=== PATIENT | male | born 1980 | race Caucasian/White ===

== ENCOUNTER 2023-06-11 22:42 | Inpatient (IN) | payer OTHER, MEDICAID, SELFPAY ==
[2023-06-11 22:44] VITALS: BP 136/62; PULSE 90; RESP 20; TEMP 36.9; O2SAT 93; BMI 47.9
--- NOTE | 2023-06-11 23:27 | PC.NURSE ---
Addendum entered by Mukund Mae CNA 06/12/23 03:44: Patient stood at the bedside with 2 PRODUCTION LAPPING MACHINE OPERATOR assistance, patient used urinal with help, UA collected Addendum entered by uMkund Mae CNA 06/12/23 02:48: Patient called for help, patient stated that he is having DT, seeing and hearing things that are not there. RN notified Addendum entered by Mukund Mae CNA 06/12/23 00:35: Patient stating that he would put a bullet in his mouth if he could. Patient's speech is slurred and hard to understand sometimes. Patient dose keep repeating that his brain is broken and he hasn't slept in days. Addendum entered by Mukund Mae CNA 06/12/23 00:13: patient to CT at 2350 then back to , 1:[address] Original Note: Patient arrived to ER into rm 13, SI, patient changed out of clothes and into green paper scrubs, patient very talkativ, talking with RN , this PRODUCTION LAPPING MACHINE OPERATOR is 1:1 sitter
--- NOTE | 2023-06-11 23:44 | DI.CT.S_ITS ---
PROCEDURE: CT HEAD/BRAIN WO CON INDICATIONS: fall,l head injury, alcohol TECHNIQUE: Noncontrast 4.5 mm thick angled axial sections acquired from the foramen magnum to the vertex, with coronal and sagittal reformats. For radiation dose reduction, the following was used: automated exposure control, adjustment of mA and/or kV according to patient size. COMPARISON: None. FINDINGS: Image quality: Excellent. CSF spaces: Basal cisterns are patent. No extra-axial fluid collections. Ventricles are normal in size and shape. Brain: No intracranial hemorrhage, mass, or mass effect. Rosales-white matter interface appears preserved. Skull and face: Calvarium and visualized facial bones are intact, without suspicious lesions. There is soft tissue swelling in the right parietal scalp with a small subcutaneous hematoma. Sinuses: Visualized sinuses and mastoids are clear. IMPRESSION: 1. No acute intracranial abnormality. 2. Right parietal scalp soft tissue swelling and subcutaneous hematoma without evidence of calvarial fracture. Dictated by: Moises Small M.D. on 06/12/2023 at 0:47 Approved by: Moises Small M.D. on 06/12/2023 at 0:48
[2023-06-12] VITALS (71 sets, daily range): BP systolic 111–184; BP diastolic 55–151; PULSE 73–197; RESP 16–45; TEMP 36.6–37.2; O2SAT 89–98; BMI 48.7
[2023-06-12 00:13] LABS: INR 1.5 (0.9-1.3); Prothrombin Time 16.9 SECONDS (10.1-12.7)
[2023-06-12 00:17] LABS: Basophils Absolute Auto 0 /uL (0-100); Basophils Percent Auto 0.5 % (0-2); Eosinophils Absolute Auto 100 /uL (0-450); Eosinophils Percent Auto 1.8 % (2-4); Hematocrit 40.7 % (41-53); Hemoglobin 14.1 g/dL (13.5-17.5); Lymphocytes Absolute Auto 900 /uL (1100-4500); Lymphocytes Percent Auto 17.3 % (25-40); Mean Corpuscular HGB Conc 34.7 % (30-36); Mean Corpuscular Hemoglobin 34.8 PG (26-34); Mean Corpuscular Volume 100.5 fL (80-100); Monocytes Absolute Auto 400 /uL (0-900); Monocytes Percent Auto 8.1 % (3-14); Neutrophils Absolute Auto 3800 /uL (1500-7000); Neutrophils Percent Auto 72.3 % (50-75); Red Blood Cell Count 4.05 X10^6/uL (4.5-5.9); Red Cell Distribution Width 14.4 % (11.6-14.8); White Blood Cell Count 5.3 X10^3/uL (4.5-11.0)
--- NOTE | 2023-06-12 00:18 | PC.NURSE ---
22:45 this nurse is the primary nurse for this patient. Upon initial assessment, patient is alert, oriented to self, date, place and situation. When asked about patient wanting to harm himself, patient states I made my peace with life, and just want it to end, I just wanted my heart to stop. I tried drinking but that did not work. At 23:16, patient states just let me . 23:44 this nurse spoke with patient's father, Escobar, who reports the patient sent him a text message saying he wants to ends things, and now id the time for him to be a father. The patient's father came up from [place] to see him. The father reports the patient had a fall on Saturday, and hit his head, that was witnessed by [facility] staff where patient resides. The father also all day everyday he (the patient) keeps saying I want it to end, just let me . Per patient's father report, the patient fell out of bed and hit the right side of his head today. Dr. Mckeon aware.
[2023-06-12 00:23] LABS: Add Manual Diff / Slide Review SLIDE REVIEW; Alanine Aminotransferase 164 IU/L (<50); Albumin 3.8 g/dL (3.5-5.0); Albumin Globulin Ratio 0.9 (1.0-2.8); Alkaline Phosphatase 165 U/L (38-126); Aspartate Aminotransferase 431 IU/L (17-59); BUN Creatinine Ratio 11.1 (6-22); Bilirubin Total 4.8 mg/dL (0.2-1.3); Blood Urea Nitrogen 6 mg/dL (9-20); Calcium 7.9 mg/dL (8.4-10.2); Carbon Dioxide 28 mmol/L (22-32); Chloride 89 mmol/L (98-107); Estimated Glomerular Filt Rate > 60 mL/min (>60); Globulin 4.4 g/dL (1.7-4.1); Glucose 126 mg/dL (70-100); HEMOLYSIS 21 (0-50); Lipase 554 U/L (23-300); Magnesium 1.9 mg/dL (1.6-2.3); Potassium 3.7 mmol/L (3.4-5.1); Sodium 132 mmol/L (137-145); Total Protein 8.2 g/dL (6.3-8.2)
[2023-06-12 00:48] LABS: Acetaminophen < 10 ug/mL (10-30); Salicylate < 1.0 mg/dL (<20)
[2023-06-12 00:58] LABS: Ethanol (ETOH) 410 mg/dL
[2023-06-12 00:59] LABS: Platelet Count 36 X10^3/uL (150-400)
[2023-06-12 01:03] LABS: Anisocytosis 2+; Macrocytosis 1+; Platelet Estimate Decreased on smear
--- NOTE | 2023-06-12 03:48 | ED_ITS ---
HPI - Alcohol <DO Poli Jung Last Filed: 06/13/23 04:06> General Chief Complaint: Toxicology Problem Stated Complaint: ETOH w/ SI Time Seen by Provider: 06/11/23 22:51 Source: EMS Mode of arrival: EMS History of Present Illness HPI narrative: 43-year-old male without significant chronic medical history admits to drinking a large amount of liquor daily and presents by EMS for evaluation of apparent alcohol intoxication. He reports drinking upwards of a 5th of bourbon daily but had recently made attempts to cut back. His father is visiting from out of town and was trying to help him with the process but (per EMS) it sounds like he is attempting to swap bourbon with vodka and has been supplying him with liquor. He states that he had a large amount of vodka earlier today and ?passed out? on the stairs and woke up to EMS. He did strike the right side of his head but has had no vomiting. Denies other injury. He is never tried quitting alcohol through a detox or rehab facility before Related Data Home Medications Medication Instructions Recorded Confirmed No Known Home Medications 06/12/23 06/12/23 Allergies Allergy/AdvReac Type Severity Reaction Status Date / Time No Known Drug Allergies Allergy Verified 06/11/23 23:15 Review of Systems <DO Poli Jung Last Filed: 06/13/23 04:06> Review of Systems Narrative: GENERAL: Denies chills, fatigue, malaise, fever, sweats. HEENT: Denies sinus pain, ear pain, sore throat, difficulty swallowing, dizziness. RESPIRATORY: Denies dyspnea, cough, wheezing, hemoptysis, sputum. CARDIOVASCULAR: Denies chest pain, palpitations, orthopnea, edema, GASTROINTESTINAL: Denies nausea, vomiting, abdominal pain, diarrhea, const ipation, melena. : Denies dysuria, frequency, incontinence, hematuria, urinary retention. MUSCULOSKELETAL: denies weakness, joint pain, or bony pain SKIN: Denies rash, skin lesions, or other NEUROLOGIC: Denies weakness, headache, numbness, change in speech, confusion, seizures, incoordination. PSYCHIATRIC: No concerning psychosocial issues. 12 point review of systems is negative except for those stated above Patient History <DO Poli Jung Last Filed: 06/13/23 04:06> Social History household members: none Smoking Status: Unknown if ever smoked alcohol intake: current Alcohol type: hard liquor Exam <Rainer Mckeon DO - Last Filed: 06/13/23 04:06> Narrative Exam Narrative: GENERAL: [43] year old patient appears stated age. Slurring words, tearful, poor historian, GCS 14 (confused) HEAD: Right parietal swelling and tenderness, no laceration, no evidence of depressed skull fracture EYES: Pupils equal round and reactive. No hyphema Extraocular motions intact. No scleral icterus. No injection or drainage. ENT: Nose without bleeding, purulent drainage. Dried blood in his mouth, no septal hematoma or hemotympanum Throat without erythema, tonsillar hypertrophy or exudate. Airway patent. NECK: Trachea midline. Non tender CARDIOVASCULAR: Regular rate and rhythm without murmurs, gallops, or rubs. RESPIRATORY: Clear to auscultation. Breath sounds equal bilaterally. No wheezes, rales, or rhonchi. GASTROINTESTINAL: Abdomen soft, non-tender, nondistended. EXTREMITIES: No edema or joint tenderness. BACK: Nontender without deformity or crepitance. No flank tenderness. NEURO: AOx3. SKIN: No rash or erythema of visible areas Initial Vital Signs Initial Vital Signs: Vital Signs Temperature 98.4 F 06/11/23 22:44 Pulse Rate 90 06/11/23 22:44 Respiratory Rate 20 06/11/23 22:44 Blood Pressure 136/62 06/11/23 22:44 Pulse Oximetry 93 06/11/23 22:44 Oxygen Delivery Method Room Air 06/11/23 22:44 <Jason Dejesus MD - Last Filed: 06/20/23 09:15> Initial Vital Signs Initial Vital Signs: Vital Signs Temperature 98.4 F 06/11/23 22:44 Pulse Rate 90 06/11/23 22:44 Respiratory Rate 06/11/23 22:44 Blood Pressure 136/62 06/11/23 22:44 Pulse Oximetry 93 06/11/23 22:44 Oxygen Delivery Method Room Air 06/11/23 22:44 Course <Rainer Mckeon DO - Last Filed: 06/13/23 04:06> Orders Ordered: Acetaminophen (Acetaminophen 325 Mg Tablet) 650 mg PO Q6H PRN PRN Reason: Fever/Mild Pain (1-3) Folic Acid (Folic Acid 1 Mg Tablet) 1 mg PO DAILY [facility] Last Admin: 06/20/23 08:24 Dose: 1 mg Documented By: Admin: 06/19/23 08:40 Dose: 1 mg Documented By: Admin: 06/18/23 09:30 Dose: 1 mg Documented By: Admin: 06/17/23 08:49 Dose: 1 mg Documented By: Admin: 06/16/23 08:23 Dose: 1 mg Documented By: Admin: 06/15/23 08:37 Dose: 1 mg Documented By: Admin: 06/14/23 08:45 Dose: 1 mg Documented By: Admin: 06/13/23 08:21 Dose: 1 mg Documented By: EMEKA Heparin Sodium (Porcine) (Heparin Flush (Cl/Picc/Mid-Line) 50 Unit/5 Ml Syringe) 50 unit IV PRN PRN PRN Reason: Flush Last Admin: 06/19/23 13:51 Dose: 50 unit Documented By: Admin: 06/18/23 14:37 Dose: 50 unit Documented By: CHAD Lactulose (Lactulose 20 Gm/30 Ml Solution) 30 gm PO TID [facility] Last Admin: 06/20/23 08:24 Dose: 30 gm Documented By: Admin: 06/19/23 20:55 Dose: 30 gm Documented By: Admin: 06/19/23 14:16 Dose: 30 gm Documented By: Admin: 06/19/23 08:40 Dose: 30 gm Documented By: Admin: 06/18/23 21:17 Dose: 30 gm Documented By: Admin: 06/18/23 14:37 Dose: 30 gm Documented By: CHAD Lorazepam (Lorazepam 2 Mg/Ml Inj) 0 mg IV CIWAPRN PRN; Protocol PRN Reason: Alcohol Withdrawal Last Admin: 06/12/23 23:42 Dose: 1 mg Documented By: Admin: 06/12/23 14:02 Dose: 2 mg Documented By: Admin: 06/12/23 10:52 Dose: 2 mg Documented By: AMV Melatonin (Melatonin 3 Mg Tablet) 9 mg PO BEDTIME [facility] Last Admin: 06/19/23 20:52 Dose: 9 mg Documented By: Admin: 06/18/23 21:17 Dose: 9 mg Documented By: Admin: 06/17/23 21:17 Dose: 9 mg Documented By: Multivitamins (Multivitamin 1 Tablet) 1 tab PO DAILY [facility] Last Admin: 06/20/23 08:24 Dose: 1 tab Documented By: Admin: 06/19/23 08:40 Dose: 1 tab Documented By: Admin: 06/18/23 09:30 Dose: 1 tab Documented By: Admin: 06/17/23 08:49 Dose: 1 tab Documented By: Admin: 06/16/23 08:23 Dose: 1 tab Documented By: Admin: 06/15/23 08:37 Dose: 1 tab Documented By: Admin: 06/14/23 08:45 Dose: 1 tab Documented By: Admin: 06/13/23 08:21 Dose: 1 tab Documented By: EMEKA Naloxone HCl (Naloxone 0.4 Mg/Ml Vial) 0.2 mg IV Q2MIN PRN PRN Reason: Opiate Reversal Nystatin (Nystatin Powder 15gm) 1 applic TOP BID [facility] Last Admin: 06/20/23 08:25 Dose: 1 applic Documented By: Admin: 06/19/23 20:53 Dose: 1 applic Documented By: Admin: 06/19/23 08:41 Dose: 1 applic Documented By: Admin: 06/18/23 21:21 Dose: 1 applic Documented By: Admin: 06/18/23 09:30 Dose: 1 applic Documented By: Admin: 06/17/23 21:16 Dose: 1 applic Documented By: Admin: 06/17/23 08:49 Dose: 1 applic Documented By: Admin: 06/16/23 21:50 Dose: 1 applic Documented By: Admin: 06/16/23 08:24 Dose: 1 applic Documented By: Admin: 06/15/23 20:45 Dose: 1 applic Documented By: Admin: 06/15/23 08:38 Dose: 1 applic Documented By: Admin: 06/14/23 14:31 Dose: 1 applic Documented By: Admin: 06/14/23 09:06 Dose: Not Given Documented By: Admin: 06/13/23 20:15 Dose: 1 applic Documented By: Admin: 06/13/23 13:58 Dose: 1 applic Documented By: EMEKA Ondansetron HCl (Ondansetron 4 Mg/2 Ml Inj) 4 mg IV Q6HR PRN PRN Reason: Nausea And Vomiting Last Admin: 06/12/23 10:31 Dose: 4 mg Documented By: DAVON Pantoprazole Sodium (Pantoprazole Dr 40 Mg Tablet) 40 mg PO 0600 [facility] Last Admin: 06/20/23 06:02 Dose: 40 mg Documented By: (2) Admin: 06/19/23 05:44 Dose: 40 mg Documented By: Admin: 06/18/23 05:09 Dose: 40 mg Documented By: Admin: 06/17/23 05:08 Dose: 40 mg Documented By: Admin: 06/16/23 06:38 Dose: 40 mg Documented By: Admin: 06/15/23 06:49 Dose: 40 mg Documented By: RAQUEL Prednisolone (Prednisolone Syrup 15 Mg/5 Ml) 40 mg PO DAILY [facility] Stop: 07/15/23 08:59 Last Admin: 06/20/23 08:24 Dose: 40 mg Documented By: Admin: 06/19/23 08:40 Dose: 40 mg Documented By: Admin: 06/18/23 09:31 Dose: 40 mg Documented By: Admin: 06/17/23 08:54 Dose: 40 mg Documented By: KRYSTA Quetiapine Fumarate (Quetiapine 100 Mg Tablet) 25 mg PO BID PRN PRN Reason: Agitation Last Admin: 06/18/23 21:17 Dose: 25 mg Documented By: Admin: 06/17/23 21:17 Dose: 25 mg Documented By: Thiamine HCl (Thiamine 100 Mg Tablet) 100 mg PO DAILY [facility] Last Admin: 06/20/23 08:24 Dose: 100 mg Documented By: Admin: 06/19/23 08:40 Dose: 100 mg Documented By: Admin: 06/18/23 09:30 Dose: 100 mg Documented By: Admin: 06/17/23 08:49 Dose: 100 mg Documented By: Admin: 06/16/23 08:23 Dose: 100 mg Documented By: Discontinued Medications Cephalexin HCl (Cephalexin 250 Mg Capsule) 500 mg PO NOW ONE Stop: 06/12/23 07:06 Last Admin: 06/12/23 10:31 Dose: 500 mg Documented By: DAVON Chlordiazepoxide HCl (Chlordiazepoxide 25 Mg Capsule) 50 mg PO Q6HRWA [facility] Chlordiazepoxide HCl (Chlordiazepoxide 25 Mg Capsule) 50 mg PO Q6HRWA [facility] Last Admin: 06/13/23 08:13 Dose: 50 mg Documented By: Admin: 06/12/23 20:51 Dose: 50 mg Documented By: Admin: 06/12/23 18:08 Dose: 50 mg Documented By: MEME Chlordiazepoxide HCl (Chlordiazepoxide 25 Mg Capsule) 50 mg PO Q6HR [facility] Chlordiazepoxide HCl (Chlordiazepoxide 25 Mg Capsule) 75 mg PO Q6HR [facility] Last Admin: 06/13/23 11:44 Dose: 75 mg Documented By: EMEKA Chlordiazepoxide HCl (Chlordiazepoxide 25 Mg Capsule) 50 mg PO Q6HR [facility] Last Admin: 06/14/23 06:21 Dose: 50 mg Documented By: Admin: 06/14/23 00:08 Dose: 50 mg Documented By: Admin: 06/13/23 17:26 Dose: 50 mg Documented By: EMEKA Chlordiazepoxide HCl (Chlordiazepoxide 25 Mg Capsule) 50 mg PO Q8HR [facility] Last Admin: 06/15/23 06:49 Dose: 50 mg Documented By: Admin: 06/14/23 21:00 Dose: 50 mg Documented By: Admin: 06/14/23 14:28 Dose: 50 mg Documented By: Diltiazem HCl (Diltiazem 5 Mg/Ml [facility]) 10 mg IV NOW ONE Stop: 06/12/23 10:46 Last Admin: 06/12/23 10:53 Dose: 10 mg Documented By: DAVON Thiamine HCl 200 mg/ Sodium (Chloride) 102 mls @ 408 mls/hr IV NOW ONE Stop: 06/12/23 03:54 Last Infusion: 06/12/23 04:27 Dose: 0 mls/hr Documented By: Admin: 06/12/23 04:08 Dose: 408 mls/hr Documented By: GALINDO Sodium Chloride (Normal Saline 0.9%) 1,000 mls @ 1,000 mls/hr IV BOLUS ONE Stop: 06/12/23 11:14 Last Infusion: 06/12/23 13:22 Dose: 0 mls/hr Documented By: Admin: 06/12/23 10:31 Dose: 1,000 mls/hr Documented By: AMAdri DILTIAZEM (Diltiazem 125 Mg/125 Ml-D5w) 125 mg in 125 mls @ 5 mls/hr IV TITRATE [facility]; Protocol Last Titration: 06/12/23 12:30 Dose: 0 mg/hr, 0 mls/hr Documented By: Titration: 06/12/23 12:04 Dose: 15 mg/hr, 15 mls/hr Documented By: Titration: 06/12/23 11:43 Dose: 10 mg/hr, 10 mls/hr Documented By: Admin: 06/12/23 11:39 Dose: 5 mg/hr, 5 mls/hr Documented By: RLS Heparin Sodium/Dextrose (Heparin Drip) 25,000 unit in 500 mls @ 37.44 mls/hr IV CONT [facility]; Protocol Last Titration: 06/12/23 13:15 Dose: 0 units/kg/hr, 0 mls/hr Documented By: KAMLESH Co-signed By: AMAdri Admin: 06/12/23 13:02 Dose: 12 units/kg/hr, 37.44 mls/hr Documented By: RLS Co-signed By: MAI Magnesium Sulfate (Magnesium Sulfate) 2 gm in 50 mls @ 25 mls/hr IV NOW ONE Stop: 06/12/23 14:29 Last Infusion: 06/12/23 16:23 Dose: 0 mls/hr Documented By: MEME Co-signed By: WILLY Admin: 06/12/23 12:38 Dose: 25 mls/hr Documented By: KAMLESH Co-signed By: HOLLY Esmolol HCl (Brevibloc) 2.5 gm in 250 mls @ 46.8 mls/hr IV TITRATE [facility]; Protocol Last Titration: 06/12/23 21:15 Dose: 0 mcg/kg/min, 0 mls/hr Documented By: Admin: 06/12/23 19:46 Dose: 150 mcg/kg/min, 140.4 mls/hr Documented By: Titration: 06/12/23 19:46 Dose: 150 mcg/kg/min, 140.4 mls/hr Documented By: Admin: 06/12/23 19:36 Dose: 150 mcg/kg/min, 140.4 mls/hr Documented By: Titration: 06/12/23 19:36 Dose: 150 mcg/kg/min, 140.4 mls/hr Documented By: Titration: 06/12/23 18:38 Dose: 150 mcg/kg/min, 140.4 mls/hr Documented By: Admin: 06/12/23 17:25 Dose: 100 mcg/kg/min, 93.6 mls/hr Documented By: Titration: 06/12/23 17:25 Dose: 100 mcg/kg/min, 93.6 mls/hr Documented By: Titration: 06/12/23 16:17 Dose: 100 mcg/kg/min, 93.6 mls/hr Documented By: Admin: 06/12/23 13:13 Dose: 50 mcg/kg/min, 46.8 mls/hr Documented By: RLS Sodium Chloride (Normal Saline 0.9%) 1,000 mls @ 150 mls/hr IV BOLUS ONE Stop: 06/12/23 20:14 Last Infusion: 06/12/23 17:27 Dose: 0 mls/hr Documented By: Infusion: 06/12/23 17:25 Dose: 0 mls/hr Documented By: Admin: 06/12/23 13:48 Dose: 100 mls/hr Documented By: RLS dexmedeTOMIDine in 0.9 % NaCL (Precedex) 400 mcg in 100 mls @ 7.8 mls/hr IV TITRATE [facility]; Protocol Last Titration: 06/14/23 09:44 Dose: 0 mcg/kg/hr, 0 mls/hr Documented By: Titration: 06/14/23 09:08 Dose: 0.3 mcg/kg/hr, 11.7 mls/hr Documented By: Admin: 06/14/23 04:13 Dose: 0.4 mcg/kg/hr, 15.6 mls/hr Documented By: Titration: 06/14/23 04:13 Dose: 0.4 mcg/kg/hr, 15.6 mls/hr Documented By: Titration: 06/14/23 03:41 Dose: 0.4 mcg/kg/hr, 15.6 mls/hr Documented By: Admin: 06/13/23 16:45 Dose: 0.2 mcg/kg/hr, 7.8 mls/hr Documented By: Titration: 06/13/23 16:45 Dose: 0.2 mcg/kg/hr, 7.8 mls/hr Documented By: Titration: 06/13/23 12:55 Dose: 0.2 mcg/kg/hr, 7.8 mls/hr Documented By: Titration: 06/13/23 10:44 Dose: 0.4 mcg/kg/hr, 15.6 mls/hr Documented By: Admin: 06/13/23 10:13 Dose: 0.2 mcg/kg/hr, 7.8 mls/hr Documented By: Admin: 06/12/23 16:18 Dose: Not Given Documented By: MEME Lactated Ringer's (Lactated Ringers) 1,000 mls @ 1,000 mls/hr IV BOLUS ONE Stop: 06/12/23 15:52 Last Infusion: 06/12/23 16:23 Dose: 0 mls/hr Documented By: Admin: 06/12/23 16:05 Dose: 1,000 mls/hr Documented By: MEME POTASSIUM CHLORIDE IN WATER (Potassium Cl 10 Meq/100 Ml [place]) 10 meq in 100 mls @ 100 mls/hr IV Q1H [facility] Stop: 06/12/23 18:59 Last Admin: 06/12/23 19:35 Dose: 100 mls/hr Documented By: Infusion: 06/12/23 19:26 Dose: 0 mls/hr Documented By: Admin: 06/12/23 18:21 Dose: 100 mls/hr Documented By: Infusion: 06/12/23 18:21 Dose: 100 mls/hr Documented By: Admin: 06/12/23 17:26 Dose: 100 mls/hr Documented By: Infusion: 06/12/23 17:05 Dose: 100 mls/hr Documented By: Admin: 06/12/23 16:05 Dose: 100 mls/hr Documented By: MEME Lactated Ringer's (Lactated Ringers) 1,000 mls @ 100 mls/hr IV CONT [facility] Last Infusion: 06/14/23 12:08 Dose: 0 mls/hr Documented By: Admin: 06/14/23 10:08 Dose: 100 mls/hr Documented By: Infusion: 06/14/23 10:08 Dose: 100 mls/hr Documented By: Admin: 06/14/23 00:16 Dose: 100 mls/hr Documented By: Infusion: 06/14/23 00:04 Dose: 100 mls/hr Documented By: Admin: 06/13/23 14:04 Dose: 100 mls/hr Documented By: Infusion: 06/13/23 14:04 Dose: 100 mls/hr Documented By: Admin: 06/13/23 13:59 Dose: 100 mls/hr Documented By: Infusion: 06/13/23 13:59 Dose: 100 mls/hr Documented By: Admin: 06/13/23 04:15 Dose: 100 mls/hr Documented By: Infusion: 06/13/23 03:25 Dose: 100 mls/hr Documented By: Admin: 06/12/23 17:25 Dose: 100 mls/hr Documented By: MEME Lactated Ringer's (Lactated Ringers) 1,000 mls @ 1,000 mls/hr IV BOLUS ONE Stop: 06/12/23 19:12 Last Infusion: 06/12/23 19:16 Dose: 0 mls/hr Documented By: Admin: 06/12/23 18:19 Dose: 1,000 mls/hr Documented By: MEME Lactated Ringer's (Lactated Ringers) 1,000 mls @ 1,000 mls/hr IV BOLUS ONE Stop: 06/12/23 21:39 Last Infusion: 06/12/23 21:54 Dose: 0 mls/hr Documented By: Admin: 06/12/23 20:45 Dose: 1,000 mls/hr Documented By: SEVERO Thiamine HCl 500 mg/ Sodium (Chloride) 105 mls @ 420 mls/hr IV TID [facility] Last Admin: 06/15/23 08:37 Dose: 420 mls/hr Documented By: Infusion: 06/14/23 21:25 Dose: 0 mls/hr Documented By: Admin: 06/14/23 20:59 Dose: 420 mls/hr Documented By: Infusion: 06/14/23 14:43 Dose: 0 mls/hr Documented By: Admin: 06/14/23 14:28 Dose: 420 mls/hr Documented By: Infusion: 06/14/23 09:00 Dose: 0 mls/hr Documented By: Admin: 06/14/23 08:45 Dose: 420 mls/hr Documented By: Infusion: 06/13/23 20:31 Dose: 0 mls/hr Documented By: Admin: 06/13/23 20:16 Dose: 420 mls/hr Documented By: Infusion: 06/13/23 15:09 Dose: 0 mls/hr Documented By: Admin: 06/13/23 14:45 Dose: 420 mls/hr Documented By: Infusion: 06/13/23 11:10 Dose: 0 mls/hr Documented By: Admin: 06/13/23 09:34 Dose: 420 mls/hr Documented By: EMEKA Lactulose (Lactulose 20 Gm/30 Ml Solution) 20 gm PO TID [facility] Last Admin: 06/18/23 09:30 Dose: 20 gm Documented By: Admin: 06/17/23 21:16 Dose: 20 gm Documented By: Admin: 06/17/23 16:30 Dose: 20 gm Documented By: Admin: 06/17/23 08:49 Dose: 20 gm Documented By: Admin: 06/16/23 21:48 Dose: 20 gm Documented By: Admin: 06/16/23 14:45 Dose: 20 gm Documented By: Admin: 06/16/23 09:54 Dose: 20 gm Documented By: Lorazepam (Lorazepam 2 Mg/Ml Inj) 2 mg IV NOW ONE Stop: 06/13/23 09:05 Last Admin: 06/13/23 09:34 Dose: 2 mg Documented By: EMEKA Magnesium Chloride (Magnesium Chloride 64 Mg Tablet) 128 mg PO NOW ONE Stop: 06/13/23 10:31 Last Admin: 06/13/23 10:42 Dose: 128 mg Documented By: EMEKA Methylprednisolone (Methylprednisolone 40 Mg/Ml Vial) 32 mg IV DAILY [facility] Last Admin: 06/13/23 08:20 Dose: 32 mg Documented By: EMEKA Metoprolol Tartrate (Metoprolol Tartrate 5 Mg/5 Ml Inj) 5 mg IV NOW ONE Stop: 06/12/23 12:28 Last Admin: 06/12/23 12:46 Dose: 5 mg Documented By: KAMLESH Pantoprazole Sodium (Pantoprazole 40 Mg Vial) 40 mg IV 0700 [facility] Last Admin: 06/14/23 06:21 Dose: 40 mg Documented By: Admin: 06/13/23 07:38 Dose: 40 mg Documented By: EMEKA Potassium Chloride (Potassium Chloride 20 Meq Tab) 40 meq PO NOW ONE Stop: 06/13/23 10:31 Last Admin: 06/13/23 10:42 Dose: 40 meq Documented By: CW Potassium Chloride (Potassium Chloride 20 Meq Tab) 40 meq PO Q6H [facility] Stop: 06/14/23 14:01 Last Admin: 06/14/23 14:30 Dose: 40 meq Documented By: Admin: 06/14/23 08:45 Dose: 40 meq Documented By: MS Potassium Chloride (Potassium Chloride 20 Meq Tab) 20 meq PO Q2H [facility] Stop: 06/15/23 12:01 Last Admin: 06/15/23 12:32 Dose: 20 meq Documented By: Admin: 06/15/23 10:45 Dose: 20 meq Documented By: Admin: 06/15/23 08:37 Dose: 20 meq Documented By: MS Potassium Chloride (Potassium Chloride 20 Meq Tab) 40 meq PO NOW ONE Stop: 06/16/23 07:23 Last Admin: 06/16/23 08:23 Dose: 40 meq Documented By: MS Potassium Chloride (Potassium Chloride 20 Meq Tab) 20 meq PO Q2H [facility] Stop: 06/16/23 14:31 Last Admin: 06/16/23 12:01 Dose: Not Given Documented By: MS Thiamine HCl (Thiamine 100 Mg Tablet) 100 mg PO DAILY [facility] Stop: 06/16/23 09:01 Last Admin: 06/13/23 08:20 Dose: 100 mg Documented By: EMEKA Reevaluation(s) Reevaluation #1: Patient continuing to improve, speaking clearly, no suicidal or homicidal ideation. No signs of withdrawal at this time Vital Signs Vital signs: Vital Signs - 8 hr 06/12/23 06:55 06/12/23 10:16 06/12/23 10:42 Temperature 98.1 F 97.8 F Pulse Rate 78 156 H 165 H Respiratory Rate 20 18 20 Blood Pressure 133/62 Blood Pressure [Right Arm] 184/77 H Pulse Oximetry 98 96 Oxygen Delivery Method Room Air Room Air 06/12/23 10:44 06/12/23 10:44 06/12/23 10:45 Temperature Pulse Rate 175 H 172 H Respiratory Rate 17 22 Blood Pressure 157/89 H Blood Pressure [Right Arm] Pulse Oximetry 94 95 Oxygen Delivery Method 06/12/23 10:50 06/12/23 10:55 06/12/23 11:00 Temperature Pulse Rate 175 H 158 H Respiratory Rate 23 18 Blood Pressure 176/127 H Blood Pressure [Right Arm] Pulse Oximetry 95 94 Oxygen Delivery Method Room Air 06/12/23 11:00 06/12/23 11:05 06/12/23 11:10 Temperature Pulse Rate 164 H 176 H 174 H Respiratory Rate 16 27 H 26 H Blood Pressure Blood Pressure [Right Arm] Pulse Oximetry 92 91 93 Oxygen Delivery Method 06/12/23 11:15 06/12/23 11:20 06/12/23 11:25 Temperature Pulse Rate 170 H 175 H Respiratory Rate 21 33 H Blood Pressure 179/146 H Blood Pressure [Right Arm] Pulse Oximetry 91 92 Oxygen Delivery Method 06/12/23 11:25 06/12/23 11:30 06/12/23 11:30 Temperature Pulse Rate 197 H 171 H Respiratory Rate 45 H 32 H Blood Pressure 184/151 H Blood Pressure [Right Arm] Pulse Oximetry 93 94 Oxygen Delivery Method 06/12/23 11:35 06/12/23 11:37 06/12/23 11:37 Temperature Pulse Rate 177 H 175 H Respiratory Rate 33 H 28 H Blood Pressure 128/75 Blood Pressure [Right Arm] Pulse Oximetry 95 Oxygen Delivery Method 06/12/23 11:40 06/12/23 11:45 06/12/23 11:48 Temperature Pulse Rate 172 H 172 H Respiratory Rate 21 22 Blood Pressure 124/72 Blood Pressure [Right Arm] Pulse Oximetry 95 95 Oxygen Delivery Method 06/12/23 11:48 06/12/23 11:50 06/12/23 11:50 Temperature Pulse Rate 175 H 170 H Respiratory Rate 22 17 Blood Pressure 122/79 Blood Pressure [Right Arm] Pulse Oximetry 94 94 Oxygen Delivery Method 06/12/23 11:55 06/12/23 11:55 06/12/23 12:00 Temperature Pulse Rate 171 H Respiratory Rate 24 Blood Pressure 127/70 143/77 H Blood Pressure [Right Arm] Pulse Oximetry 93 Oxygen Delivery Method 06/12/23 12:00 06/12/23 12:05 06/12/23 12:05 Temperature Pulse Rate 176 H 181 H Respiratory Rate 25 H 20 Blood Pressure 138/73 Blood Pressure [Right Arm] Pulse Oximetry 94 96 Oxygen Delivery Method 06/12/23 12:10 06/12/23 12:15 06/12/23 12:18 Temperature Pulse Rate 178 H 177 H 172 H Respiratory Rate 20 30 H 31 H Blood Pressure Blood Pressure [Right Arm] Pulse Oximetry 95 95 94 Oxygen Delivery Method 06/12/23 12:18 06/12/23 12:20 06/12/23 12:20 Temperature Pulse Rate 174 H Respiratory Rate 22 Blood Pressure 145/93 H 137/82 Blood Pressure [Right Arm] Pulse Oximetry 96 Oxygen Delivery Method 06/12/23 12:25 06/12/23 12:25 06/12/23 12:30 Temperature Pulse Rate 170 H Respiratory Rate 27 H Blood Pressure 157/99 H 148/77 H Blood Pressure [Right Arm] Pulse Oximetry 93 Oxygen Delivery Method 06/12/23 12:30 06/12/23 12:35 06/12/23 12:35 Temperature Pulse Rate 163 H 166 H Respiratory Rate 28 H 28 H Blood Pressure 174/74 H Blood Pressure [Right Arm] Pulse Oximetry 92 92 Oxygen Delivery Method 06/12/23 12:40 06/12/23 12:40 06/12/23 12:45 Temperature Pulse Rate 164 H Respiratory Rate 28 H Blood Pressure 162/77 H 149/88 H Blood Pressure [Right Arm] Pulse Oximetry 94 Oxygen Delivery Method 06/12/23 12:45 06/12/23 12:50 06/12/23 12:50 Temperature Pulse Rate 164 H 142 H Respiratory Rate 28 H 20 Blood Pressure 154/109 H Blood Pressure [Right Arm] Pulse Oximetry 93 95 Oxygen Delivery Method 06/12/23 12:55 06/12/23 12:55 06/12/23 13:00 Temperature Pulse Rate 119 H Respiratory Rate 33 H Blood Pressure 161/86 H 147/70 H Blood Pressure [Right Arm] Pulse Oximetry 92 Oxygen Delivery Method 06/12/23 13:00 06/12/23 13:05 06/12/23 13:05 Temperature Pulse Rate 127 H 129 H Respiratory Rate 34 H 27 H Blood Pressure 140/80 Blood Pressure [Right Arm] Pulse Oximetry 93 94 Oxygen Delivery Method 06/12/23 13:10 06/12/23 13:10 06/12/23 13:15 Temperature Pulse Rate 138 H Respiratory Rate 32 H Blood Pressure 143/78 H 152/75 H Blood Pressure [Right Arm] Pulse Oximetry 92 Oxygen Delivery Method 06/12/23 13:15 06/12/23 13:20 06/12/23 13:20 Temperature Pulse Rate 135 H 126 H Respiratory Rate 34 H 33 H Blood Pressure 152/80 H Blood Pressure [Right Arm] Pulse Oximetry 92 91 Oxygen Delivery Method 06/12/23 13:25 06/12/23 13:25 06/12/23 13:30 Temperature Pulse Rate 121 H Respiratory Rate 31 H Blood Pressure 149/100 H 119/75 Blood Pressure [Right Arm] Pulse Oximetry 93 Oxygen Delivery Method 06/12/23 13:30 06/12/23 13:35 06/12/23 13:35 Temperature 98.8 F Pulse Rate 125 H 122 H Respiratory Rate 30 H 32 H Blood Pressure 138/78 Blood Pressure [Right Arm] Pulse Oximetry 94 91 Oxygen Delivery Method Room Air 06/12/23 13:40 06/12/23 13:40 06/12/23 13:45 Temperature Pulse Rate 116 H Respiratory Rate 30 H Blood Pressure 144/86 H 144/86 H Blood Pressure [Right Arm] Pulse Oximetry 93 Oxygen Delivery Method 06/12/23 13:45 Temperature Pulse Rate 124 H Respiratory Rate 31 H Blood Pressure Blood Pressure [Right Arm] Pulse Oximetry 94 Oxygen Delivery Method <Jason Dejesus MD - Last Filed: 06/20/23 09:15> Orders Ordered: Acetaminophen (Acetaminophen 325 Mg Tablet) 650 mg PO Q6H PRN PRN Reason: Fever/Mild Pain (1-3) Folic Acid (Folic Acid 1 Mg Tablet) 1 mg PO DAILY [facility] Admin: 06/20/23 08:24 Dose: 1 mg Documented By: Admin: 06/19/23 08:40 Dose: 1 mg Documented By: Admin: 06/18/23 09:30 Dose: 1 mg Documented By: Admin: 06/17/23 08:49 Dose: 1 mg Documented By: Admin: 06/16/23 08:23 Dose: 1 mg Documented By: Admin: 06/15/23 08:37 Dose: 1 mg Documented By: Admin: 06/14/23 08:45 Dose: 1 mg Documented By: Admin: 06/13/23 08:21 Dose: 1 mg Documented By: CW Heparin Sodium (Porcine) (Heparin Flush (Cl/Picc/Mid-Line) 50 Unit/5 Ml Syringe) 50 unit IV PRN PRN PRN Reason: Flush Last Admin: 06/19/23 13:51 Dose: 50 unit Documented By: Admin: 06/18/23 14:37 Dose: 50 unit Documented By: CHAD Lactulose (Lactulose 20 Gm/30 Ml Solution) 30 gm PO TID [facility] Last Admin: 06/20/23 08:24 Dose: 30 gm Documented By: Admin: 06/19/23 20:55 Dose: 30 gm Documented By: Admin: 06/19/23 14:16 Dose: 30 gm Documented By: Admin: 06/19/23 08:40 Dose: 30 gm Documented By: Admin: 06/18/23 21:17 Dose: 30 gm Documented By: Admin: 06/18/23 14:37 Dose: 30 gm Documented By: CHAD Lorazepam (Lorazepam 2 Mg/Ml Inj) 0 mg IV CIWAPRN PRN; Protocol PRN Reason: Alcohol Withdrawal Last Admin: 06/12/23 23:42 Dose: 1 mg Documented By: Admin: 06/12/23 14:02 Dose: 2 mg Documented By: Admin: 06/12/23 10:52 Dose: 2 mg Documented By: DAVON Melatonin (Melatonin 3 Mg Tablet) 9 mg PO BEDTIME [facility] Last Admin: 06/19/23 20:52 Dose: 9 mg Documented By: Admin: 06/18/23 21:17 Dose: 9 mg Documented By: Admin: 06/17/23 21:17 Dose: 9 mg Documented By: Multivitamins (Multivitamin 1 Tablet) 1 tab PO DAILY [facility] Last Admin: 06/20/23 08:24 Dose: 1 tab Documented By: Admin: 06/19/23 08:40 Dose: 1 tab Documented By: Admin: 06/18/23 09:30 Dose: 1 tab Documented By: Admin: 06/17/23 08:49 Dose: 1 tab Documented By: Admin: 06/16/23 08:23 Dose: 1 tab Documented By: Admin: 06/15/23 08:37 Dose: 1 tab Documented By: Admin: 06/14/23 08:45 Dose: 1 tab Documented By: Admin: 06/13/23 08:21 Dose: 1 tab Documented By: EMEKA Naloxone HCl (Naloxone 0.4 Mg/Ml Vial) 0.2 mg IV Q2MIN PRN PRN Reason: Opiate Reversal Nystatin (Nystatin Powder 15gm) 1 applic TOP BID [facility] Last Admin: 06/20/23 08:25 Dose: 1 applic Documented By: Admin: 06/19/23 20:53 Dose: 1 applic Documented By: Admin: 06/19/23 08:41 Dose: 1 applic Documented By: Admin: 06/18/23 21:21 Dose: 1 applic Documented By: Admin: 06/18/23 09:30 Dose: 1 applic Documented By: Admin: 06/17/23 21:16 Dose: 1 applic Documented By: Admin: 06/17/23 08:49 Dose: 1 applic Documented By: Admin: 06/16/23 21:50 Dose: 1 applic Documented By: Admin: 06/16/23 08:24 Dose: 1 applic Documented By: Admin: 06/15/23 20:45 Dose: 1 applic Documented By: Admin: 06/15/23 08:38 Dose: 1 applic Documented By: Admin: 06/14/23 14:31 Dose: 1 applic Documented By: Admin: 06/14/23 09:06 Dose: Not Given Documented By: Admin: 06/13/23 20:15 Dose: 1 applic Documented By: Admin: 06/13/23 13:58 Dose: 1 applic Documented By: EMEKA Ondansetron HCl (Ondansetron 4 Mg/2 Ml Inj) 4 mg IV Q6HR PRN PRN Reason: Nausea And Vomiting Last Admin: 06/12/23 10:31 Dose: 4 mg Documented By: AMAdri Pantoprazole Sodium (Pantoprazole Dr 40 Mg Tablet) 40 mg PO 0600 [facility] Last Admin: 06/20/23 06:02 Dose: 40 mg Documented By: (2) Admin: 06/19/23 05:44 Dose: 40 mg Documented By: Admin: 06/18/23 05:09 Dose: 40 mg Documented By: Admin: 06/17/23 05:08 Dose: 40 mg Documented By: Admin: 06/16/23 06:38 Dose: 40 mg Documented By: Admin: 06/15/23 06:49 Dose: 40 mg Documented By: RAQUEL Prednisolone (Prednisolone Syrup 15 Mg/5 Ml) 40 mg PO DAILY [facility] Stop: 07/15/23 08:59 Last Admin: 06/20/23 08:24 Dose: 40 mg Documented By: Admin: 06/19/23 08:40 Dose: 40 mg Documented By: Admin: 06/18/23 09:31 Dose: 40 mg Documented By: Admin: 06/17/23 08:54 Dose: 40 mg Documented By: SAIRAV Quetiapine Fumarate (Quetiapine 100 Mg Tablet) 25 mg PO BID PRN PRN Reason: Agitation Last Admin: 06/18/23 21:17 Dose: 25 mg Documented By: Admin: 06/17/23 21:17 Dose: 25 mg Documented By: Thiamine HCl (Thiamine 100 Mg Tablet) 100 mg PO DAILY [facility] Last Admin: 06/20/23 08:24 Dose: 100 mg Documented By: Admin: 06/19/23 08:40 Dose: 100 mg Documented By: Admin: 06/18/23 09:30 Dose: 100 mg Documented By: Admin: 06/17/23 08:49 Dose: 100 mg Documented By: Admin: 06/16/23 08:23 Dose: 100 mg Documented By: Discontinued Medications Cephalexin HCl (Cephalexin 250 Mg Capsule) 500 mg PO NOW ONE Stop: 06/12/23 07:06 Last Admin: 06/12/23 10:31 Dose: 500 mg Documented By: AMV Chlordiazepoxide HCl (Chlordiazepoxide 25 Mg Capsule) 50 mg PO Q6HRWA [facility] Chlordiazepoxide HCl (Chlordiazepoxide 25 Mg Capsule) 50 mg PO Q6HRWA [facility] Last Admin: 06/13/23 08:13 Dose: 50 mg Documented By: Admin: 06/12/23 20:51 Dose: 50 mg Documented By: Admin: 06/12/23 18:08 Dose: 50 mg Documented By: MEME Chlordiazepoxide HCl (Chlordiazepoxide 25 Mg Capsule) 50 mg PO Q6HR [facility] Chlordiazepoxide HCl (Chlordiazepoxide 25 Mg Capsule) 75 mg PO Q6HR [facility] Last Admin: 06/13/23 11:44 Dose: 75 mg Documented By: EMEKA Chlordiazepoxide HCl (Chlordiazepoxide 25 Mg Capsule) 50 mg PO Q6HR [facility] Last Admin: 06/14/23 06:21 Dose: 50 mg Documented By: Admin: 06/14/23 00:08 Dose: 50 mg Documented By: Admin: 06/13/23 17:26 Dose: 50 mg Documented By: EMEKA Chlordiazepoxide HCl (Chlordiazepoxide 25 Mg Capsule) 50 mg PO Q8HR [facility] Last Admin: 06/15/23 06:49 Dose: 50 mg Documented By: Admin: 06/14/23 21:00 Dose: 50 mg Documented By: Admin: 06/14/23 14:28 Dose: 50 mg Documented By: Diltiazem HCl (Diltiazem 5 Mg/Ml Sdv) 10 mg IV NOW ONE Stop: 06/12/23 10:46 Last Admin: 06/12/23 10:53 Dose: 10 mg Documented By: DAVON Thiamine HCl 200 mg/ Sodium (Chloride) 102 mls @ 408 mls/hr IV NOW ONE Stop: 06/12/23 03:54 Last Infusion: 06/12/23 04:27 Dose: 0 mls/hr Documented By: Admin: 06/12/23 04:08 Dose: 408 mls/hr Documented By: GALINDO Sodium Chloride (Normal Saline 0.9%) 1,000 mls @ 1,000 mls/hr IV BOLUS ONE Stop: 06/12/23 11:14 Last Infusion: 06/12/23 13:22 Dose: 0 mls/hr Documented By: Admin: 06/12/23 10:31 Dose: 1,000 mls/hr Documented By: DAVON DILTIAZEM (Diltiazem 125 Mg/125 Ml-D5w) 125 mg in 125 mls @ 5 mls/hr IV TITRATE [facility]; Protocol Last Titration: 06/12/23 12:30 Dose: 0 mg/hr, 0 mls/hr Documented By: Titration: 06/12/23 12:04 Dose: 15 mg/hr, 15 mls/hr Documented By: Titration: 06/12/23 11:43 Dose: 10 mg/hr, 10 mls/hr Documented By: Admin: 06/12/23 11:39 Dose: 5 mg/hr, 5 mls/hr Documented By: KAMLESH Heparin Sodium/Dextrose (Heparin Drip) 25,000 unit in 500 mls @ 37.44 mls/hr IV CONT [facility]; Protocol Last Titration: 06/12/23 13:15 Dose: 0 units/kg/hr, 0 mls/hr Documented By: KAMLESH Co-signed By: DAVON Admin: 06/12/23 13:02 Dose: 12 units/kg/hr, 37.44 mls/hr Documented By: RLS Co-signed By: MAI Magnesium Sulfate (Magnesium Sulfate) 2 gm in 50 mls @ 25 mls/hr IV NOW ONE Stop: 06/12/23 14:29 Last Infusion: 06/12/23 16:23 Dose: 0 mls/hr Documented By: MEME Co-signed By: WILLY Admin: 06/12/23 12:38 Dose: 25 mls/hr Documented By: RLS Co-signed By: HOLLY Esmolol HCl (Brevibloc) 2.5 gm in 250 mls @ 46.8 mls/hr IV TITRATE [facility]; Protocol Last Titration: 06/12/23 21:15 Dose: 0 mcg/kg/min, 0 mls/hr Documented By: Admin: 06/12/23 19:46 Dose: 150 mcg/kg/min, 140.4 mls/hr Documented By: Titration: 06/12/23 19:46 Dose: 150 mcg/kg/min, 140.4 mls/hr Documented By: Admin: 06/12/23 19:36 Dose: 150 mcg/kg/min, 140.4 mls/hr Documented By: Titration: 06/12/23 19:36 Dose: 150 mcg/kg/min, 140.4 mls/hr Documented By: Titration: 06/12/23 18:38 Dose: 150 mcg/kg/min, 140.4 mls/hr Documented By: Admin: 06/12/23 17:25 Dose: 100 mcg/kg/min, 93.6 mls/hr Documented By: Titration: 06/12/23 17:25 Dose: 100 mcg/kg/min, 93.6 mls/hr Documented By: Titration: 06/12/23 16:17 Dose: 100 mcg/kg/min, 93.6 mls/hr Documented By: Admin: 06/12/23 13:13 Dose: 50 mcg/kg/min, 46.8 mls/hr Documented By: KAMLESH Sodium Chloride (Normal Saline 0.9%) 1,000 mls @ 150 mls/hr IV BOLUS ONE Stop: 06/12/23 20:14 Last Infusion: 06/12/23 17:27 Dose: 0 mls/hr Documented By: Infusion: 06/12/23 17:25 Dose: 0 mls/hr Documented By: Admin: 06/12/23 13:48 Dose: 100 mls/hr Documented By: KAMLESH dexmedeTOMIDine in 0.9 % NaCL (Precedex) 400 mcg in 100 mls @ 7.8 mls/hr IV TITRATE [facility]; Protocol Last Titration: 06/14/23 09:44 Dose: 0 mcg/kg/hr, 0 mls/hr Documented By: Titration: 06/14/23 09:08 Dose: 0.3 mcg/kg/hr, 11.7 mls/hr Documented By: Admin: 06/14/23 04:13 Dose: 0.4 mcg/kg/hr, 15.6 mls/hr Documented By: Titration: 06/14/23 04:13 Dose: 0.4 mcg/kg/hr, 15.6 mls/hr Documented By: Titration: 06/14/23 03:41 Dose: 0.4 mcg/kg/hr, 15.6 mls/hr Documented By: Admin: 06/13/23 16:45 Dose: 0.2 mcg/kg/hr, 7.8 mls/hr Documented By: Titration: 06/13/23 16:45 Dose: 0.2 mcg/kg/hr, 7.8 mls/hr Documented By: Titration: 06/13/23 12:55 Dose: 0.2 mcg/kg/hr, 7.8 mls/hr Documented By: Titration: 06/13/23 10:44 Dose: 0.4 mcg/kg/hr, 15.6 mls/hr Documented By: Admin: 06/13/23 10:13 Dose: 0.2 mcg/kg/hr, 7.8 mls/hr Documented By: Admin: 06/12/23 16:18 Dose: Not Given Documented By: MEME Lactated Ringer's (Lactated Ringers) 1,000 mls @ 1,000 mls/hr IV BOLUS ONE Stop: 06/12/23 15:52 Last Infusion: 06/12/23 16:23 Dose: 0 mls/hr Documented By: Admin: 06/12/23 16:05 Dose: 1,000 mls/hr Documented By: MEME POTASSIUM CHLORIDE IN WATER (Potassium Cl 10 Meq/100 Ml [place]) 10 meq in 100 mls @ 100 mls/hr IV Q1H [facility] Stop: 06/12/23 18:59 Last Admin: 06/12/23 19:35 Dose: 100 mls/hr Documented By: Infusion: 06/12/23 19:26 Dose: 0 mls/hr Documented By: Admin: 06/12/23 18:21 Dose: 100 mls/hr Documented By: Infusion: 06/12/23 18:21 Dose: 100 mls/hr Documented By: Admin: 06/12/23 17:26 Dose: 100 mls/hr Documented By: Infusion: 06/12/23 17:05 Dose: 100 mls/hr Documented By: Admin: 06/12/23 16:05 Dose: 100 mls/hr Documented By: MEME Lactated Ringer's (Lactated Ringers) 1,000 mls @ 100 mls/hr IV CONT YAIR Last Infusion: 06/14/23 12:08 Dose: 0 mls/hr Documented By: Admin: 06/14/23 10:08 Dose: 100 mls/hr Documented By: Infusion: 06/14/23 10:08 Dose: 100 mls/hr Documented By: Admin: 06/14/23 00:16 Dose: 100 mls/hr Documented By: Infusion: 06/14/23 00:04 Dose: 100 mls/hr Documented By: Admin: 06/13/23 14:04 Dose: 100 mls/hr Documented By: Infusion: 06/13/23 14:04 Dose: 100 mls/hr Documented By: Admin: 06/13/23 13:59 Dose: 100 mls/hr Documented By: Infusion: 06/13/23 13:59 Dose: 100 mls/hr Documented By: Admin: 06/13/23 04:15 Dose: 100 mls/hr Documented By: Infusion: 06/13/23 03:25 Dose: 100 mls/hr Documented By: Admin: 06/12/23 17:25 Dose: 100 mls/hr Documented By: MEME Lactated Ringer's (Lactated Ringers) 1,000 mls @ 1,000 mls/hr IV BOLUS ONE Stop: 06/12/23 19:12 Last Infusion: 06/12/23 19:16 Dose: 0 mls/hr Documented By: Admin: 06/12/23 18:19 Dose: 1,000 mls/hr Documented By: MEME Lactated Ringer's (Lactated Ringers) 1,000 mls @ 1,000 mls/hr IV BOLUS ONE Stop: 06/12/23 21:39 Last Infusion: 06/12/23 21:54 Dose: 0 mls/hr Documented By: Admin: 06/12/23 20:45 Dose: 1,000 mls/hr Documented By: SEVERO Thiamine HCl 500 mg/ Sodium (Chloride) 105 mls @ 420 mls/hr IV TID [facility] Last Admin: 06/15/23 08:37 Dose: 420 mls/hr Documented By: Infusion: 06/14/23 21:25 Dose: 0 mls/hr Documented By: Admin: 06/14/23 20:59 Dose: 420 mls/hr Documented By: Infusion: 06/14/23 14:43 Dose: 0 mls/hr Documented By: Admin: 06/14/23 14:28 Dose: 420 mls/hr Documented By: Infusion: 06/14/23 09:00 Dose: 0 mls/hr Documented By: Admin: 06/14/23 08:45 Dose: 420 mls/hr Documented By: Infusion: 06/13/23 20:31 Dose: 0 mls/hr Documented By: Admin: 06/13/23 20:16 Dose: 420 mls/hr Documented By: Infusion: 06/13/23 15:09 Dose: 0 mls/hr Documented By: Admin: 06/13/23 14:45 Dose: 420 mls/hr Documented By: Infusion: 06/13/23 11:10 Dose: 0 mls/hr Documented By: Admin: 06/13/23 09:34 Dose: 420 mls/hr Documented By: EMEKA Lactulose (Lactulose 20 Gm/30 Ml Solution) 20 gm PO TID [facility] Last Admin: 06/18/23 09:30 Dose: 20 gm Documented By: Admin: 06/17/23 21:16 Dose: 20 gm Documented By: Admin: 06/17/23 16:30 Dose: 20 gm Documented By: Admin: 06/17/23 08:49 Dose: 20 gm Documented By: Admin: 06/16/23 21:48 Dose: 20 gm Documented By: Admin: 06/16/23 14:45 Dose: 20 gm Documented By: Admin: 06/16/23 09:54 Dose: 20 gm Documented By: Lorazepam (Lorazepam 2 Mg/Ml Inj) 2 mg IV NOW ONE Stop: 06/13/23 09:05 Last Admin: 06/13/23 09:34 Dose: 2 mg Documented By: EMEKA Magnesium Chloride (Magnesium Chloride 64 Mg Tablet) 128 mg PO NOW ONE Stop: 06/13/23 10:31 Last Admin: 06/13/23 10:42 Dose: 128 mg Documented By: EMEKA Methylprednisolone (Methylprednisolone 40 Mg/Ml Vial) 32 mg IV DAILY [facility] Last Admin: 06/13/23 08:20 Dose: 32 mg Documented By: EMEKA Metoprolol Tartrate (Metoprolol Tartrate 5 Mg/5 Ml Inj) 5 mg IV NOW ONE Stop: 06/12/23 12:28 Last Admin: 06/12/23 12:46 Dose: 5 mg Documented By: KAMLESH Pantoprazole Sodium (Pantoprazole 40 Mg Vial) 40 mg IV 0700 [facility] Last Admin: 06/14/23 06:21 Dose: 40 mg Documented By: Admin: 06/13/23 07:38 Dose: 40 mg Documented By: EMEKA Potassium Chloride (Potassium Chloride 20 Meq Tab) 40 meq PO NOW ONE Stop: 06/13/23 10:31 Last Admin: 06/13/23 10:42 Dose: 40 meq Documented By: EMEKA Potassium Chloride (Potassium Chloride 20 Meq Tab) 40 meq PO Q6H [facility] Stop: 06/14/23 14:01 Last Admin: 06/14/23 14:30 Dose: 40 meq Documented By: Admin: 06/14/23 08:45 Dose: 40 meq Documented By: Potassium Chloride (Potassium Chloride 20 Meq Tab) 20 meq PO Q2H [facility] Stop: 06/15/23 12:01 Last Admin: 06/15/23 12:32 Dose: 20 meq Documented By: Admin: 06/15/23 10:45 Dose: 20 meq Documented By: Admin: 06/15/23 08:37 Dose: 20 meq Documented By: MS Potassium Chloride (Potassium Chloride 20 Meq Tab) 40 meq PO NOW ONE Stop: 06/16/23 07:23 Last Admin: 06/16/23 08:23 Dose: 40 meq Documented By: Potassium Chloride (Potassium Chloride 20 Meq Tab) 20 meq PO Q2H [facility] Stop: 06/16/23 14:31 Last Admin: 06/16/23 12:01 Dose: Not Given Documented By: Thiamine HCl (Thiamine 100 Mg Tablet) 100 mg PO DAILY [facility] Stop: 06/16/23 09:01 Last Admin: 06/13/23 08:20 Dose: 100 mg Documented By: CW Vital Signs Vital signs: Vital Signs - 8 hr 06/12/23 06:55 06/12/23 10:16 06/12/23 10:42 Temperature 98.1 F 97.8 F Pulse Rate 78 156 H 165 H Respiratory Rate 20 18 20 Blood Pressure 133/62 Blood Pressure [Right Arm] 184/77 H Pulse Oximetry 98 96 Oxygen Delivery Method Room Air Room Air 06/12/23 10:44 06/12/23 10:44 06/12/23 10:45 Temperature Pulse Rate 175 H 172 H Respiratory Rate 17 22 Blood Pressure 157/89 H Blood Pressure [Right Arm] Pulse Oximetry 94 95 Oxygen Delivery Method 06/12/23 10:50 06/12/23 10:55 06/12/23 11:00 Temperature Pulse Rate 175 H 158 H Respiratory Rate 23 18 Blood Pressure 176/127 H Blood Pressure [Right Arm] Pulse Oximetry 95 94 Oxygen Delivery Method Room Air 06/12/23 11:00 06/12/23 11:05 06/12/23 11:10 Temperature Pulse Rate 164 H 176 H 174 H Respiratory Rate 16 27 H 26 H Blood Pressure Blood Pressure [Right Arm] Pulse Oximetry 92 91 93 Oxygen Delivery Method 06/12/23 11:15 06/12/23 11:20 06/12/23 11:25 Temperature Pulse Rate 170 H 175 H Respiratory Rate 21 33 H Blood Pressure 179/146 H Blood Pressure [Right Arm] Pulse Oximetry 91 92 Oxygen Delivery Method 06/12/23 11:25 06/12/23 11:30 06/12/23 11:30 Temperature Pulse Rate 197 H 171 H Respiratory Rate 45 H 32 H Blood Pressure 184/151 H Blood Pressure [Right Arm] Pulse Oximetry 93 94 Oxygen Delivery Method 06/12/23 11:35 06/12/23 11:37 06/12/23 11:37 Temperature Pulse Rate 177 H 175 H Respiratory Rate 33 H 28 H Blood Pressure 128/75 Blood Pressure [Right Arm] Pulse Oximetry 95 Oxygen Delivery Method 06/12/23 11:40 06/12/23 11:45 06/12/23 11:48 Temperature Pulse Rate 172 H 172 H Respiratory Rate 21 22 Blood Pressure 124/72 Blood Pressure [Right Arm] Pulse Oximetry 95 95 Oxygen Delivery Method 06/12/23 11:48 06/12/23 11:50 06/12/23 11:50 Temperature Pulse Rate 175 H 170 H Respiratory Rate 22 17 Blood Pressure 122/79 Blood Pressure [Right Arm] Pulse Oximetry 94 94 Oxygen Delivery Method 06/12/23 11:55 06/12/23 11:55 06/12/23 12:00 Temperature Pulse Rate 171 H Respiratory Rate 24 Blood Pressure 127/70 143/77 H Blood Pressure [Right Arm] Pulse Oximetry 93 Oxygen Delivery Method 06/12/23 12:00 06/12/23 12:05 06/12/23 12:05 Temperature Pulse Rate 176 H 181 H Respiratory Rate 25 H 20 Blood Pressure 138/73 Blood Pressure [Right Arm] Pulse Oximetry 94 96 Oxygen Delivery Method 06/12/23 12:10 06/12/23 12:15 06/12/23 12:18 Temperature Pulse Rate 178 H 177 H 172 H Respiratory Rate 20 30 H 31 H Blood Pressure Blood Pressure [Right Arm] Pulse Oximetry 95 95 94 Oxygen Delivery Method 06/12/23 12:18 06/12/23 12:20 06/12/23 12:20 Temperature Pulse Rate 174 H Respiratory Rate 22 Blood Pressure 145/93 H 137/82 Blood Pressure [Right Arm] Pulse Oximetry 96 Oxygen Delivery Method 06/12/23 12:25 06/12/23 12:25 06/12/23 12:30 Temperature Pulse Rate 170 H Respiratory Rate 27 H Blood Pressure 157/99 H 148/77 H Blood Pressure [Right Arm] Pulse Oximetry 93 Oxygen Delivery Method 06/12/23 12:30 06/12/23 12:35 06/12/23 12:35 Temperature Pulse Rate 163 H 166 H Respiratory Rate 28 H 28 H Blood Pressure 174/74 H Blood Pressure [Right Arm] Pulse Oximetry 92 92 Oxygen Delivery Method 06/12/23 12:40 06/12/23 12:40 06/12/23 12:45 Temperature Pulse Rate 164 H Respiratory Rate 28 H Blood Pressure 162/77 H 149/88 H Blood Pressure [Right Arm] Pulse Oximetry 94 Oxygen Delivery Method 06/12/23 12:45 06/12/23 12:50 06/12/23 12:50 Temperature Pulse Rate 164 H 142 H Respiratory Rate 28 H 20 Blood Pressure 154/109 H Blood Pressure [Right Arm] Pulse Oximetry 93 95 Oxygen Delivery Method 06/12/23 12:55 06/12/23 12:55 06/12/23 13:00 Temperature Pulse Rate 119 H Respiratory Rate 33 H Blood Pressure 161/86 H 147/70 H Blood Pressure [Right Arm] Pulse Oximetry 92 Oxygen Delivery Method 06/12/23 13:00 06/12/23 13:05 06/12/23 13:05 Temperature Pulse Rate 127 H 129 H Respiratory Rate 34 H 27 H Blood Pressure 140/80 Blood Pressure [Right Arm] Pulse Oximetry 93 94 Oxygen Delivery Method 06/12/23 13:10 06/12/23 13:10 06/12/23 13:15 Temperature Pulse Rate 138 H Respiratory Rate 32 H Blood Pressure 143/78 H 152/75 H Blood Pressure [Right Arm] Pulse Oximetry 92 Oxygen Delivery Method 06/12/23 13:15 06/12/23 13:20 06/12/23 13:20 Temperature Pulse Rate 135 H 126 H Respiratory Rate 34 H 33 H Blood Pressure 152/80 H Blood Pressure [Right Arm] Pulse Oximetry 92 91 Oxygen Delivery Method 06/12/23 13:25 06/12/23 13:25 06/12/23 13:30 Temperature Pulse Rate 121 H Respiratory Rate 31 H Blood Pressure 149/100 H 119/75 Blood Pressure [Right Arm] Pulse Oximetry 93 Oxygen Delivery Method 06/12/23 13:30 06/12/23 13:35 06/12/23 13:35 Temperature 98.8 F Pulse Rate 125 H 122 H Respiratory Rate 30 H 32 H Blood Pressure 138/78 Blood Pressure [Right Arm] Pulse Oximetry 94 91 Oxygen Delivery Method Room Air 06/12/23 13:40 06/12/23 13:40 06/12/23 13:45 Temperature Pulse Rate 116 H Respiratory Rate 30 H Blood Pressure 144/86 H 144/86 H Blood Pressure [Right Arm] Pulse Oximetry 93 Oxygen Delivery Method 06/12/23 13:45 Temperature Pulse Rate 124 H Respiratory Rate 31 H Blood Pressure Blood Pressure [Right Arm] Pulse Oximetry 94 Oxygen Delivery Method MDM - Alcohol <Rainer Mckeon, DO - Last Filed: 06/13/23 04:06> Lab Data 06/20/23 05:15 06/20/23 05:15 Labs: Lab Results 06/11/23 06/11/23 06/11/23 Range/Units 23:54 23:54 23:54 WBC 5.3 (4.5-11.0) X10^3/uL RBC 4.05 L (4.5-5.9) X10^6/uL Hgb 14.1 (13.5-17.5) g/dL Hct 40.7 L (41-53) % MCV 100.5 H (80-100) fL MCH 34.8 H (26-34) PG MCHC 34.7 (30-36) % RDW 14.4 (11.6-14.8) % Plt Count 36 L* (150-400) X10^3/uL Neut % (Auto) 72.3 (50-75) % Lymph % (Auto) 17.3 L (25-40) % [place] % (Auto) 8.1 (3-14) % Eos % (Auto) 1.8 L (2-4) % Baso % (Auto) 0.5 (0-2) % Neut # (Auto) 3800 (9057-4683) /uL Lymph # (Auto) 900 L (9205-0400) /uL [place] # (Auto) 400 (0-900) /uL Eos # (Auto) 100 (0-450) /uL Baso # (Auto) 0 (0-100) /uL Platelet Estimate Decreased on smear RBC Morphology See below Anisocytosis 2+ H Macrocytosis 1+ H PT 16.9 H (10.1-12.7) SECONDS INR 1.5 H (0.9-1.3) APTT (26-36) SECONDS Sodium (137-145) mmol/L Potassium (3.4-5.1) mmol/L Chloride (98-107) mmol/L Carbon Dioxide (22-32) mmol/L BUN (9-20) mg/dL Creatinine (0.66-1.25) mg/dL Estimated GFR (>60) mL/min BUN/Creatinine Ratio (6-22) Glucose (70-100) mg/dL Hemoglobin A1c (4.0-6.0) % Lactate (0.7-2.1) mmol/L Calcium (8.4-10.2) mg/dL Magnesium (1.6-2.3) mg/dL Total Bilirubin (0.2-1.3) mg/dL AST (17-59) IU/L ALT (<50) IU/L Alkaline Phosphatase (38-126) U/L Total Creatine Kinase (55-170) U/L Troponin I (0.01-0.034) ng/mL Total Protein (6.3-8.2) g/dL Albumin (3.5-5.0) g/dL Globulin (1.7-4.1) g/dL Albumin/Globulin Ratio (1.0-2.8) Lipase (23-300) U/L TSH (0.47-4.68) uIU/mL Urine RBC (0-5/HPF) Urine WBC (0-5/HPF) Ur Squamous Epith Cells (0-5/HPF) Amorphous Sediment Urine Bacteria (None) Ur Culture Indicated? Salicylates < 1.0 (<20) mg/dL U Opiates 300ng/mL cut (Negative) Ur Oxycodone Screen (Negative) Urine Methadone Screen (Negative) Acetaminophen < 10 (10-30) ug/mL Ur Barbiturates Screen (Negative) U Tricyclic Antidepress (Negative) Ur Phencyclidine Scrn (Negative) Ur Amphetamines Screen (Negative) U Methamphetamines Scrn (Negative) Ur MDMA Scrn (Ecstasy) (Negative) U Benzodiazepines Scrn (Negative) Urine Cocaine Screen (Negative) U Marijuana (THC) Screen (Negative) Ethyl Alcohol 410 H* ( - 10) mg/dL 06/11/23 06/12/23 06/12/23 Range/Units 23:54 03:39 03:39 WBC (4.5-11.0) X10^3/uL RBC (4.5-5.9) X10^6/uL Hgb (13.5-17.5) g/dL Hct (41-53) % MCV (80-100) fL MCH (26-34) PG MCHC (30-36) % RDW (11.6-14.8) % Plt Count (150-400) X10^3/uL Neut % (Auto) (50-75) % Lymph % (Auto) (25-40) % [place] % (Auto) (3-14) % Eos % (Auto) (2-4) % Baso % (Auto) (0-2) % Neut # (Auto) (4902-6235) /uL Lymph # (Auto) (6952-3025) /uL [place] # (Auto) (0-900) /uL Eos # (Auto) (0-450) /uL Baso # (Auto) (0-100) /uL Platelet Estimate RBC Morphology Anisocytosis Macrocytosis PT (10.1-12.7) SECONDS INR (0.9-1.3) APTT (26-36) SECONDS Sodium 132 L (137-145) mmol/L Potassium 3.7 (3.4-5.1) mmol/L Chloride 89 L (98-107) mmol/L Carbon Dioxide 28 (22-32) mmol/L BUN 6 L (9-20) mg/dL Creatinine 0.54 L (0.66-1.25) mg/dL Estimated GFR > 60 (>60) mL/min BUN/Creatinine Ratio 11.1 (6-22) Glucose 126 H (70-100) mg/dL Hemoglobin A1c (4.0-6.0) % Lactate (0.7-2.1) mmol/L Calcium 7.9 L (8.4-10.2) mg/dL Magnesium 1.9 (1.6-2.3) mg/dL Total Bilirubin 4.8 H (0.2-1.3) mg/dL AST 431 H (17-59) IU/L ALT 164 H (<50) IU/L Alkaline Phosphatase 165 H (38-126) U/L Total Creatine Kinase (55-170) U/L Troponin I (0.01-0.034) ng/mL Total Protein 8.2 (6.3-8.2) g/dL Albumin 3.8 (3.5-5.0) g/dL Globulin 4.4 H (1.7-4.1) g/dL Albumin/Globulin Ratio 0.9 L (1.0-2.8) Lipase 554 H (23-300) U/L TSH (0.47-4.68) uIU/mL Urine RBC None seen (0-5/HPF) Urine WBC None seen (0-5/HPF) Ur Squamous Epith Cells 0-1 /hpf (0-5/HPF) Amorphous Sediment 4+ Urine Bacteria None seen (None) Ur Culture Indicated? Specimen cultured Salicylates (<20) mg/dL U Opiates 300ng/mL cut Negative (Negative) Ur Oxycodone Screen Negative (Negative) Urine Methadone Screen Negative (Negative) Acetaminophen (10-30) ug/mL Ur Barbiturates Screen Negative (Negative) U Tricyclic Antidepress Negative (Negative) Ur Phencyclidine Scrn Negative (Negative) Ur Amphetamines Screen Negative (Negative) U Methamphetamines Scrn Negative (Negative) Ur MDMA Scrn (Ecstasy) Negative (Negative) U Benzodiazepines Scrn Negative (Negative) Urine Cocaine Screen Negative (Negative) U Marijuana (THC) Screen Negative (Negative) Ethyl Alcohol ( - 10) mg/dL 06/12/23 06/12/23 06/12/23 Range/Units 04:15 12:22 12:22 WBC (4.5-11.0) X10^3/uL RBC (4.5-5.9) X10^6/uL Hgb (13.5-17.5) g/dL Hct (41-53) % MCV (80-100) fL MCH (26-34) PG MCHC (30-36) % RDW (11.6-14.8) % Plt Count (150-400) X10^3/uL Neut % (Auto) (50-75) % Lymph % (Auto) (25-40) % [place] % (Auto) (3-14) % Eos % (Auto) (2-4) % Baso % (Auto) (0-2) % Neut # (Auto) (0127-7352) /uL Lymph # (Auto) (3613-7878) /uL [place] # (Auto) (0-900) /uL Eos # (Auto) (0-450) /uL Baso # (Auto) (0-100) /uL Platelet Estimate RBC Morphology Anisocytosis Macrocytosis PT (10.1-12.7) SECONDS INR (0.9-1.3) APTT (26-36) SECONDS Sodium 128 L (137-145) mmol/L Potassium 3.1 L (3.4-5.1) mmol/L Chloride 88 L (98-107) mmol/L Carbon Dioxide 23 (22-32) mmol/L BUN 5 L (9-20) mg/dL Creatinine 0.51 L (0.66-1.25) mg/dL Estimated GFR > 60 (>60) mL/min BUN/Creatinine Ratio 9.8 (6-22) Glucose 107 H (70-100) mg/dL Hemoglobin A1c 5.5 (4.0-6.0) % Lactate (0.7-2.1) mmol/L Calcium 7.5 L (8.4-10.2) mg/dL Magnesium (1.6-2.3) mg/dL Total Bilirubin 5.6 H (0.2-1.3) mg/dL AST 374 H (17-59) IU/L ALT 158 H (<50) IU/L Alkaline Phosphatase 161 H (38-126) U/L Total Creatine Kinase 514 H (55-170) U/L Troponin I 0.029 (0.01-0.034) ng/mL Total Protein 7.7 (6.3-8.2) g/dL Albumin 3.6 (3.5-5.0) g/dL Globulin 4.1 (1.7-4.1) g/dL Albumin/Globulin Ratio 0.9 L (1.0-2.8) Lipase (23-300) U/L TSH (0.47-4.68) uIU/mL Urine RBC (0-5/HPF) Urine WBC (0-5/HPF) Ur Squamous Epith Cells (0-5/HPF) Amorphous Sediment Urine Bacteria (None) Ur Culture Indicated? Salicylates (<20) mg/dL U Opiates 300ng/mL cut (Negative) Ur Oxycodone Screen (Negative) Urine Methadone Screen (Negative) Acetaminophen (10-30) ug/mL Ur Barbiturates Screen (Negative) U Tricyclic Antidepress (Negative) Ur Phencyclidine Scrn (Negative) Ur Amphetamines Screen (Negative) U Methamphetamines Scrn (Negative) Ur MDMA Scrn (Ecstasy) (Negative) U Benzodiazepines Scrn (Negative) Urine Cocaine Screen (Negative) U Marijuana (THC) Screen (Negative) Ethyl Alcohol 179 H ( - 10) mg/dL 06/12/23 06/12/23 06/12/23 Range/Units 12:22 12:22 12:22 WBC 6.0 (4.5-11.0) X10^3/uL RBC 4.13 L (4.5-5.9) X10^6/uL Hgb 14.3 (13.5-17.5) g/dL Hct 41.3 (41-53) % MCV 100.0 (80-100) fL MCH 34.7 H (26-34) PG MCHC 34.7 (30-36) % RDW 14.5 (11.6-14.8) % Plt Count 35 L* (150-400) X10^3/uL Neut % (Auto) 77.4 H (50-75) % Lymph % (Auto) 14.1 L (25-40) % [place] % (Auto) 7.2 (3-14) % Eos % (Auto) 0.8 L (2-4) % Baso % (Auto) 0.5 (0-2) % Neut # (Auto) 4600 (5447-1419) /uL Lymph # (Auto) 800 L (6778-5353) /uL [place] # (Auto) 400 (0-900) /uL Eos # (Auto) 0 (0-450) /uL Baso # (Auto) 0 (0-100) /uL Platelet Estimate Decreased on smear RBC Morphology See below Anisocytosis Macrocytosis 1+ H PT (10.1-12.7) SECONDS INR (0.9-1.3) APTT 36 (26-36) SECONDS Sodium (137-145) mmol/L Potassium (3.4-5.1) mmol/L Chloride (98-107) mmol/L Carbon Dioxide (22-32) mmol/L BUN (9-20) mg/dL Creatinine (0.66-1.25) mg/dL Estimated GFR (>60) mL/min BUN/Creatinine Ratio (6-22) Glucose (70-100) mg/dL Hemoglobin A1c (4.0-6.0) % Lactate 5.8 H* (0.7-2.1) mmol/L Calcium (8.4-10.2) mg/dL Magnesium (1.6-2.3) mg/dL Total Bilirubin (0.2-1.3) mg/dL AST (17-59) IU/L ALT (<50) IU/L Alkaline Phosphatase (38-126) U/L Total Creatine Kinase (55-170) U/L Troponin I (0.01-0.034) ng/mL Total Protein (6.3-8.2) g/dL Albumin (3.5-5.0) g/dL Globulin (1.7-4.1) g/dL Albumin/Globulin Ratio (1.0-2.8) Lipase (23-300) U/L TSH (0.47-4.68) uIU/mL Urine RBC (0-5/HPF) Urine WBC (0-5/HPF) Ur Squamous Epith Cells (0-5/HPF) Amorphous Sediment Urine Bacteria (None) Ur Culture Indicated? Salicylates (<20) mg/dL U Opiates 300ng/mL cut (Negative) Ur Oxycodone Screen (Negative) Urine Methadone Screen (Negative) Acetaminophen (10-30) ug/mL Ur Barbiturates Screen (Negative) U Tricyclic Antidepress (Negative) Ur Phencyclidine Scrn (Negative) Ur Amphetamines Screen (Negative) U Methamphetamines Scrn (Negative) Ur MDMA Scrn (Ecstasy) (Negative) U Benzodiazepines Scrn (Negative) Urine Cocaine Screen (Negative) U Marijuana (THC) Screen (Negative) Ethyl Alcohol ( - 10) mg/dL 06/12/23 06/12/23 Range/Units 12:22 13:03 WBC (4.5-11.0) X10^3/uL RBC (4.5-5.9) X10^6/uL Hgb (13.5-17.5) g/dL Hct (41-53) % MCV (80-100) fL MCH (26-34) PG MCHC (30-36) % RDW (11.6-14.8) % Plt Count (150-400) X10^3/uL Neut % (Auto) (50-75) % Lymph % (Auto) (25-40) % [place] % (Auto) (3-14) % Eos % (Auto) (2-4) % Baso % (Auto) (0-2) % Neut # (Auto) (7178-0274) /uL Lymph # (Auto) (7834-0734) /uL [place] # (Auto) (0-900) /uL Eos # (Auto) (0-450) /uL Baso # (Auto) (0-100) /uL Platelet Estimate RBC Morphology Anisocytosis Macrocytosis PT 17.6 H (10.1-12.7) SECONDS INR 1.5 H (0.9-1.3) APTT (26-36) SECONDS Sodium (137-145) mmol/L Potassium (3.4-5.1) mmol/L Chloride (98-107) mmol/L Carbon Dioxide (22-32) mmol/L BUN (9-20) mg/dL Creatinine (0.66-1.25) mg/dL Estimated GFR (>60) mL/min BUN/Creatinine Ratio (6-22) Glucose (70-100) mg/dL Hemoglobin A1c (4.0-6.0) % Lactate (0.7-2.1) mmol/L Calcium (8.4-10.2) mg/dL Magnesium (1.6-2.3) mg/dL Total Bilirubin (0.2-1.3) mg/dL AST (17-59) IU/L ALT (<50) IU/L Alkaline Phosphatase (38-126) U/L Total Creatine Kinase (55-170) U/L Troponin I (0.01-0.034) ng/mL Total Protein (6.3-8.2) g/dL Albumin (3.5-5.0) g/dL Globulin (1.7-4.1) g/dL Albumin/Globulin Ratio (1.0-2.8) Lipase (23-300) U/L TSH 2.77 (0.47-4.68) uIU/mL Urine RBC (0-5/HPF) Urine WBC (0-5/HPF) Ur Squamous Epith Cells (0-5/HPF) Amorphous Sediment Urine Bacteria (None) Ur Culture Indicated? Salicylates (<20) mg/dL U Opiates 300ng/mL cut (Negative) Ur Oxycodone Screen (Negative) Urine Methadone Screen (Negative) Acetaminophen (10-30) ug/mL Ur Barbiturates Screen (Negative) U Tricyclic Antidepress (Negative) Ur Phencyclidine Scrn (Negative) Ur Amphetamines Screen (Negative) U Methamphetamines Scrn (Negative) Ur MDMA Scrn (Ecstasy) (Negative) U Benzodiazepines Scrn (Negative) Urine Cocaine Screen (Negative) U Marijuana (THC) Screen (Negative) Ethyl Alcohol ( - 10) mg/dL Urine Dip Bedside Urine Glucose 100 mg/dl Bedside Urine Bilirubin +++ 4 Bedside Urine Ketone +/- 5 Urine Specific [place] 1.030 Bedside Urine Occult Blood ++ Bedside Urine pH 6.0 Bedside Urine Protein +++ 300 Bedside Urine Urobilinogen 2+ 4mg Bedside Urine Nitrite + Positive Bedside Urine Leukocytes ++ 125 Esterase MDM Narrative Medical decision making narrative: CC: 43-year-old male with fall and intoxication Complicating co-morbidities: Chronic alcohol use Data collected from: Patient Medical records reviewed: Prior notes reviewed in our EMR Differential considered, but not limited to: Alcohol abuse versus traumatic injury versus intracranial hemorrhage versus alcohol withdrawal versus other Exam documented above, pertinent findings include: Alert, slightly confused, superficial contusion on right parietal scalp, dried blood mouth, heart rate regular, lungs clear Lab Test results independently reviewed as above. Pertinent findings: No leukocytosis or left shift, sodium 132, calcium slightly low at 7.9, bilirubin, AST and ALT elevated, this is suspected to be chronic as patient has no abd ominal pain, no jaundice Independently reviewed EKG as above Imaging studies independently reviewed: CT of head without intracranial hemorrhage Treatments: Fluids and thiamine 200 mg Re-evaluations: Patient continuing to improve, awake and alert, no suicidal or homicidal ideation. States that he needs to stop drinking and wants help <Jason Dejesus MD - Last Filed: 06/20/23 09:15> Lab Data Labs: Lab Results 06/11/23 06/11/23 06/11/23 Range/Units 23:54 23:54 23:54 WBC 5.3 (4.5-11.0) X10^3/uL RBC 4.05 L (4.5-5.9) X10^6/uL Hgb 14.1 (13.5-17.5) g/dL Hct 40.7 L (41-53) % MCV 100.5 H (80-100) fL MCH 34.8 H (26-34) PG MCHC 34.7 (30-36) % RDW 14.4 (11.6-14.8) % Plt Count 36 L* (150-400) X10^3/uL Neut % (Auto) 72.3 (50-75) % Lymph % (Auto) 17.3 L (25-40) % [place] % (Auto) 8.1 (3-14) % Eos % (Auto) 1.8 L (2-4) % Baso % (Auto) 0.5 (0-2) % Neut # (Auto) 3800 (7479-9473) /uL Lymph # (Auto) 900 L (2172-2986) /uL [place] # (Auto) 400 (0-900) /uL Eos # (Auto) 100 (0-450) /uL Baso # (Auto) 0 (0-100) /uL Platelet Estimate Decreased on smear RBC Morphology See below Anisocytosis 2+ H Macrocytosis 1+ H PT 16.9 H (10.1-12.7) SECONDS INR 1.5 H (0.9-1.3) APTT (26-36) SECONDS Sodium (137-145) mmol/L Potassium (3.4-5.1) mmol/L Chloride (98-107) mmol/L Carbon Dioxide (22-32) mmol/L BUN (9-20) mg/dL Creatinine (0.66-1.25) mg/dL Estimated GFR (>60) mL/min BUN/Creatinine Ratio (6-22) Glucose (70-100) mg/dL Hemoglobin A1c (4.0-6.0) % Lactate (0.7-2.1) mmol/L Calcium (8.4-10.2) mg/dL Magnesium (1.6-2.3) mg/dL Total Bilirubin (0.2-1.3) mg/dL AST (17-59) IU/L ALT (<50) IU/L Alkaline Phosphatase (38-126) U/L Total Creatine Kinase (55-170) U/L Troponin I (0.01-0.034) ng/mL Total Protein (6.3-8.2) g/dL Albumin (3.5-5.0) g/dL Globulin (1.7-4.1) g/dL Albumin/Globulin Ratio (1.0-2.8) Lipase (23-300) U/L TSH (0.47-4.68) uIU/mL Urine RBC (0-5/HPF) Urine WBC (0-5/HPF) Ur Squamous Epith Cells (0-5/HPF) Amorphous Sediment Urine Bacteria (None) Ur Culture Indicated? Salicylates < 1.0 (<20) mg/dL U Opiates 300ng/mL cut (Negative) Ur Oxycodone Screen (Negative) Urine Methadone Screen (Negative) Acetaminophen < 10 (10-30) ug/mL Ur Barbiturates Screen (Negative) U Tricyclic Antidepress (Negative) Ur Phencyclidine Scrn (Negative) Ur Amphetamines Screen (Negative) U Methamphetamines Scrn (Negative) Ur MDMA Scrn (Ecstasy) (Negative) U Benzodiazepines Scrn (Negative) Urine Cocaine Screen (Negative) U Marijuana (THC) Screen (Negative) Ethyl Alcohol 410 H* ( - 10) mg/dL 06/11/23 06/12/23 06/12/23 Range/Units 23:54 03:39 03:39 WBC (4.5-11.0) X10^3/uL RBC (4.5-5.9) X10^6/uL Hgb (13.5-17.5) g/dL Hct (41-53) % MCV (80-100) fL MCH (26-34) PG MCHC (30-36) % RDW (11.6-14.8) % Plt Count (150-400) X10^3/uL Neut % (Auto) (50-75) % Lymph % (Auto) (25-40) % [place] % (Auto) (3-14) % Eos % (Auto) (2-4) % Baso % (Auto) (0-2) % Neut # (Auto) (3428-0242) /uL Lymph # (Auto) (5805-1864) /uL [place] # (Auto) (0-900) /uL Eos # (Auto) (0-450) /uL Baso # (Auto) (0-100) /uL Platelet Estimate RBC Morphology Anisocytosis Macrocytosis PT (10.1-12.7) SECONDS INR (0.9-1.3) APTT (26-36) SECONDS Sodium 132 L (137-145) mmol/L Potassium 3.7 (3.4-5.1) mmol/L Chloride 89 L (98-107) mmol/L Carbon Dioxide 28 (22-32) mmol/L BUN 6 L (9-20) mg/dL Creatinine 0.54 L (0.66-1.25) mg/dL Estimated GFR > 60 (>60) mL/min BUN/Creatinine Ratio 11.1 (6-22) Glucose 126 H (70-100) mg/dL Hemoglobin A1c (4.0-6.0) % Lactate (0.7-2.1) mmol/L Calcium 7.9 L (8.4-10.2) mg/dL Magnesium 1.9 (1.6-2.3) mg/dL Total Bilirubin 4.8 H (0.2-1.3) mg/dL AST 431 H (17-59) IU/L ALT 164 H (<50) IU/L Alkaline Phosphatase 165 H (38-126) U/L Total Creatine Kinase (55-170) U/L Troponin I (0.01-0.034) ng/mL Total Protein 8.2 (6.3-8.2) g/dL Albumin 3.8 (3.5-5.0) g/dL Globulin 4.4 H (1.7-4.1) g/dL Albumin/Globulin Ratio 0.9 L (1.0-2.8) Lipase 554 H (23-300) U/L TSH (0.47-4.68) uIU/mL Urine RBC None seen (0-5/HPF) Urine WBC None seen (0-5/HPF) Ur Squamous Epith Cells 0-1 /hpf (0-5/HPF) Amorphous Sediment 4+ Urine Bacteria None seen (None) Ur Culture Indicated? Specimen cultured Salicylates (<20) mg/dL U Opiates 300ng/mL cut Negative (Negative) Ur Oxycodone Screen Negative (Negative) Urine Methadone Screen Negative (Negative) Acetaminophen (10-30) ug/mL Ur Barbiturates Screen Negative (Negative) U Tricyclic Antidepress Negative (Negative) Ur Phencyclidine Scrn Negative (Negative) Ur Amphetamines Screen Negative (Negative) U Methamphetamines Scrn Negative (Negative) Ur MDMA Scrn (Ecstasy) Negative (Negative) U Benzodiazepines Scrn Negative (Negative) Urine Cocaine Screen Negative (Negative) U Marijuana (THC) Screen Negative (Negative) Ethyl Alcohol ( - 10) mg/dL 06/12/23 06/12/23 06/12/23 Range/Units 04:15 12:22 12:22 WBC (4.5-11.0) X10^3/uL RBC (4.5-5.9) X10^6/uL Hgb (13.5-17.5) g/dL Hct (41-53) % MCV (80-100) fL MCH (26-34) PG MCHC (30-36) % RDW (11.6-14.8) % Plt Count (150-400) X10^3/uL Neut % (Auto) (50-75) % Lymph % (Auto) (25-40) % [place] % (Auto) (3-14) % Eos % (Auto) (2-4) % Baso % (Auto) (0-2) % Neut # (Auto) (2627-9608) /uL Lymph # (Auto) (2924-4801) /uL [place] # (Auto) (0-900) /uL Eos # (Auto) (0-450) /uL Baso # (Auto) (0-100) /uL Platelet Estimate RBC Morphology Anisocytosis Macrocytosis PT (10.1-12.7) SECONDS INR (0.9-1.3) APTT (26-36) SECONDS Sodium 128 L (137-145) mmol/L Potassium 3.1 L (3.4-5.1) mmol/L Chloride 88 L (98-107) mmol/L Carbon Dioxide 23 (22-32) mmol/L BUN 5 L (9-20) mg/dL Creatinine 0.51 L (0.66-1.25) mg/dL Estimated GFR > 60 (>60) mL/min BUN/Creatinine Ratio 9.8 (6-22) Glucose 107 H (70-100) mg/dL Hemoglobin A1c 5.5 (4.0-6.0) % Lactate (0.7-2.1) mmol/L Calcium 7.5 L (8.4-10.2) mg/dL Magnesium (1.6-2.3) mg/dL Total Bilirubin 5.6 H (0.2-1.3) mg/dL AST 374 H (17-59) IU/L ALT 158 H (<50) IU/L Alkaline Phosphatase 161 H (38-126) U/L Total Creatine Kinase 514 H (55-170) U/L Troponin I 0.029 (0.01-0.034) ng/mL Total Protein 7.7 (6.3-8.2) g/dL Albumin 3.6 (3.5-5.0) g/dL Globulin 4.1 (1.7-4.1) g/dL Albumin/Globulin Ratio 0.9 L (1.0-2.8) Lipase (23-300) U/L TSH (0.47-4.68) uIU/mL Urine RBC (0-5/HPF) Urine WBC (0-5/HPF) Ur Squamous Epith Cells (0-5/HPF) Amorphous Sediment Urine Bacteria (None) Ur Culture Indicated? Salicylates (<20) mg/dL U Opiates 300ng/mL cut (Negative) Ur Oxycodone Screen (Negative) Urine Methadone Screen (Negative) Acetaminophen (10-30) ug/mL Ur Barbiturates Screen (Negative) U Tricyclic Antidepress (Negative) Ur Phencyclidine Scrn (Negative) Ur Amphetamines Screen (Negative) U Methamphetamines Scrn (Negative) Ur MDMA Scrn (Ecstasy) (Negative) U Benzodiazepines Scrn (Negative) Urine Cocaine Screen (Negative) U Marijuana (THC) Screen (Negative) Ethyl Alcohol 179 H ( - 10) mg/dL 06/12/23 06/12/23 06/12/23 Range/Units 12:22 12:22 12:22 WBC 6.0 (4.5-11.0) X10^3/uL RBC 4.13 L (4.5-5.9) X10^6/uL Hgb 14.3 (13.5-17.5) g/dL Hct 41.3 (41-53) % MCV 100.0 (80-100) fL MCH 34.7 H (26-34) PG MCHC 34.7 (30-36) % RDW 14.5 (11.6-14.8) % Plt Count 35 L* (150-400) X10^3/uL Neut % (Auto) 77.4 H (50-75) % Lymph % (Auto) 14.1 L (25-40) % [place] % (Auto) 7.2 (3-14) % Eos % (Auto) 0.8 L (2-4) % Baso % (Auto) 0.5 (0-2) % Neut # (Auto) 4600 (5843-5663) /uL Lymph # (Auto) 800 L (1798-6010) /uL [place] # (Auto) 400 (0-900) /uL Eos # (Auto) 0 (0-450) /uL Baso # (Auto) 0 (0-100) /uL Platelet Estimate Decreased on smear RBC Morphology See below Anisocytosis Macrocytosis 1+ H PT (10.1-12.7) SECONDS INR (0.9-1.3) APTT 36 (26-36) SECONDS Sodium (137-145) mmol/L Potassium (3.4-5.1) mmol/L Chloride (98-107) mmol/L Carbon Dioxide (22-32) mmol/L BUN (9-20) mg/dL Creatinine (0.66-1.25) mg/dL Estimated GFR (>60) mL/min BUN/Creatinine Ratio (6-22) Glucose (70-100) mg/dL Hemoglobin A1c (4.0-6.0) % Lactate 5.8 H* (0.7-2.1) mmol/L Calcium (8.4-10.2) mg/dL Magnesium (1.6-2.3) mg/dL Total Bilirubin (0.2-1.3) mg/dL AST (17-59) IU/L ALT (<50) IU/L Alkaline Phosphatase (38-126) U/L Total Creatine Kinase (55-170) U/L Troponin I (0.01-0.034) ng/mL Total Protein (6.3-8.2) g/dL Albumin (3.5-5.0) g/dL Globulin (1.7-4.1) g/dL Albumin/Globulin Ratio (1.0-2.8) Lipase (23-300) U/L TSH (0.47-4.68) uIU/mL Urine RBC (0-5/HPF) Urine WBC (0-5/HPF) Ur Squamous Epith Cells (0-5/HPF) Amorphous Sediment Urine Bacteria (None) Ur Culture Indicated? Salicylates (<20) mg/dL U Opiates 300ng/mL cut (Negative) Ur Oxycodone Screen (Negative) Urine Methadone Screen (Negative) Acetaminophen (10-30) ug/mL Ur Barbiturates Screen (Negative) U Tricyclic Antidepress (Negative) Ur Phencyclidine Scrn (Negative) Ur Amphetamines Screen (Negative) U Methamphetamines Scrn (Negative) Ur MDMA Scrn (Ecstasy) (Negative) U Benzodiazepines Scrn (Negative) Urine Cocaine Screen (Negative) U Marijuana (THC) Screen (Negative) Ethyl Alcohol ( - 10) mg/dL 06/12/23 06/12/23 Range/Units 12:22 13:03 WBC (4.5-11.0) X10^3/uL RBC (4.5-5.9) X10^6/uL Hgb (13.5-17.5) g/dL Hct (41-53) % MCV (80-100) fL MCH (26-34) PG MCHC (30-36) % RDW (11.6-14.8) % Plt Count (150-400) X10^3/uL Neut % (Auto) (50-75) % Lymph % (Auto) (25-40) % [place] % (Auto) (3-14) % Eos % (Auto) (2-4) % Baso % (Auto) (0-2) % Neut # (Auto) (4206-6945) /uL Lymph # (Auto) (7198-8691) /uL [place] # (Auto) (0-900) /uL Eos # (Auto) (0-450) /uL Baso # (Auto) (0-100) /uL Platelet Estimate RBC Morphology Anisocytosis Macrocytosis PT 17.6 H (10.1-12.7) SECONDS INR 1.5 H (0.9-1.3) APTT (26-36) SECONDS Sodium (137-145) mmol/L Potassium (3.4-5.1) mmol/L Chloride (98-107) mmol/L Carbon Dioxide (22-32) mmol/L BUN (9-20) mg/dL Creatinine (0.66-1.25) mg/dL Estimated GFR (>60) mL/min BUN/Creatinine Ratio (6-22) Glucose (70-100) mg/dL Hemoglobin A1c (4.0-6.0) % Lactate (0.7-2.1) mmol/L Calcium (8.4-10.2) mg/dL Magnesium (1.6-2.3) mg/dL Total Bilirubin (0.2-1.3) mg/dL AST (17-59) IU/L ALT (<50) IU/L Alkaline Phosphatase (38-126) U/L Total Creatine Kinase (55-170) U/L Troponin I (0.01-0.034) ng/mL Total Protein (6.3-8.2) g/dL Albumin (3.5-5.0) g/dL Globulin (1.7-4.1) g/dL Albumin/Globulin Ratio (1.0-2.8) Lipase (23-300) U/L TSH 2.77 (0.47-4.68) uIU/mL Urine RBC (0-5/HPF) Urine WBC (0-5/HPF) Ur Squamous Epith Cells (0-5/HPF) Amorphous Sediment Urine Bacteria (None) Ur Culture Indicated? Salicylates (<20) mg/dL U Opiates 300ng/mL cut (Negative) Ur Oxycodone Screen (Negative) Urine Methadone Screen (Negative) Acetaminophen (10-30) ug/mL Ur Barbiturates Screen (Negative) U Tricyclic Antidepress (Negative) Ur Phencyclidine Scrn (Negative) Ur Amphetamines Screen (Negative) U Methamphetamines Scrn (Negative) Ur MDMA Scrn (Ecstasy) (Negative) U Benzodiazepines Scrn (Negative) Urine Cocaine Screen (Negative) U Marijuana (THC) Screen (Negative) Ethyl Alcohol ( - 10) mg/dL Urine Dip Bedside Urine Glucose 100 mg/dl Bedside Urine Bilirubin +++ 4 Bedside Urine Ketone +/- 5 Urine Specific [place] 1.030 Bedside Urine Occult Blood ++ Bedside Urine pH 6.0 Bedside Urine Protein +++ 300 Bedside Urine Urobilinogen 2+ 4mg Bedside Urine Nitrite + Positive Bedside Urine Leukocytes ++ [address] scan - head: [facility]: [address] [address] [address] Scan Report Signed Patient: Maury Singer MR#: [id number] : 1980 Acct:[id number] Age/Sex: 43 / M Date of Service: 06/11/23 Loc: ED Accession Number: [id number] ?? Procedure: CT head/brain wo con Ordering Provider: Rainer Mckeon D.O. PROCEDURE:? CT HEAD/BRAIN WO CON ? INDICATIONS:? fall,l head injury, alcohol ? TECHNIQUE:? Noncontrast 4.5 mm thick angled axial sections acquired from the foramen magnum to the vertex, with coronal and sagittal reformats.? For radiation dose reduction, the following was used:? automated exposure control, adjustment of mA and/or kV according to patient size.? ? COMPARISON:? None. ? FINDINGS:? Image quality:? Excellent.? ? CSF spaces:? Basal cisterns are patent.? No extra-axial fluid collections.? Ventricles are normal in size and shape.? ? Brain:? No intracranial hemorrhage, mass, or mass effect.? Rosales-white matter interface appears preserved.? ? Skull and face:? Calvarium and visualized facial bones are intact, without suspicious lesions.? There is soft tissue swelling in the right parietal scalp with a small subcutaneous hematoma. ? Sinuses:? Visualized sinuses and mastoids are clear.? ? IMPRESSION:? ? 1. No acute intracranial abnormality. ? 2. Right parietal scalp soft tissue swelling and subcutaneous hematoma without evidence of calvarial fracture. ? ? Dictated by: Moises Small M.D. on 06/12/2023 at 0:47 ? ? Approved by: Moises Small M.D. on 06/12/2023 at 0:48 ? CT chest abdomen and pelvis: [facility]: [place] [address] CT Scan Report Signed Patient: Maury Singer MR#: [id number] : 1980 Acct:[id number] Age/Sex: 43 / M Date of Service: 06/12/23 Loc: ED Accession Number: [id number] ?? Procedure: CT chest abd pel w con Ordering Provider: Jason Dejesus MD PROCEDURE:? CT CHEST ABD PEL W CON ? INDICATIONS:? Fall/trauma ? TECHNIQUE:? After the administration of intravenous contrast, 5 mm thick sections acquired from the lung apices to the symphysis.? 2.5 mm thick coronal and sagittal reformats were acquired. ?Additional 7 mm thick coronal maximum intensity projection (MIP) reformats acquired through the lungs.? Optional 10-minute delayed imaging may be performed from the kidneys to the bladder.? For radiation dose reduction, the following was used:? automated exposure control, adjustment of mA and/or kV according to patient size.? ? COMPARISON:? None. ? FINDINGS:? Image quality:? Excellent.? ? CHEST:? Lungs:? No pulmonary contusions or lacerations.? No acute airspace opacities.? No pneumothorax or hemothorax.? Central and peripheral airways appear patent and normal in caliber.? ? Mediastinum:? No mediastinal hematomas.? Heart size is normal.? No pericardial effusion.? Thoracic aorta and pulmonary arteries demonstrate normal size and enhancement.? No mediastinal or hilar adenopathy.? Esophagus is normal in caliber.? No hiatal hernia.? ? Chest wall:? No rib fractures.? No subcutaneous emphysema.? No axillary or supraclavicular adenopathy.? Thyroid gland is unremarkable.? ? ? ABDOMEN:? Solid organs:? The liver is markedly enlarged and hypodense consistent with diffuse fatty infiltration.? No hepatic laceration.? Gallbladder is unremarkable.? Biliary system is non-dilated.? Pancreas enhances normally, without transection.? The spleen measures 15.2 cm in length.? No splenic lacerations.? No adrenal hematomas.? Both kidneys en enid normally, without hydronephrosis or lacerations.? ? Peritoneum and bowel:? There is a small amount of low-density perihepatic free fluid and trace free mesenteric fluid.? The stomach and small bowel demonstrate normal caliber and wall thickness. The appendix is thin walled and gas filled.? The bowel demonstrates overall normal caliber and wall thickness.? Mild circumferential wall thickening is present within the transverse colon.? No discrete associated pericolonic fat stranding to suggest acute colitis. ? Nodes and vessels:? No retroperitoneal or mesenteric adenopathy.? Aorta and inferior vena cava are normal in size and enhancement.? ? Miscellaneous:? No ventral hernias.? ? ? PELVIS:? Genitourinary:? Bladder wall thickness is normal.? ? Miscellaneous:? No inguinal hernias or adenopathy.? ? Bones:? Pelvic ring and hip joints appear intact.? No vertebral compression fractures.? ? ? IMPRESSION:? ? 1. Severe hepatomegaly and hepatic steatosis. ? 2. Splenomegaly. ? 3. Small amount of low-density perihepatic and intra-abdominal free fluid which may be related to portal hypertension.? ? 4. No acute thoracic or intra-abdominal findings.? Normal appendix. ? Dictated by: Ashly Jurado M.D. on 06/12/2023 at 11:58 ? ? Approved by: Ashly Jurado M.D. on 06/12/2023 at 12:10 ? MDM Narrative Medical decision making narrative: CC: 43-year-old male with fall and intoxication Complicating co-morbidities: Chronic alcohol use Data collected from: Patient Medical records reviewed: Prior notes reviewed in our EMR Differential considered, but not limited to: Alcohol abuse versus traumatic injury versus intracranial hemorrhage versus alcohol withdrawal versus other Exam documented above, pertinent findings include: Alert, slightly confused, superficial contusion on right parietal scalp, dried blood mouth, heart rate regular, lungs clear Lab Test results independently reviewed as above. Pertinent findings: No leukocytosis or left shift, sodium 132, calcium slightly low at 7.9, bilirubin, AST and ALT elevated, this is suspected to be chronic as patient has no abdominal pain, no jaundice WBC 6.0 hemoglobin 14.3 platelets 35 Troponin 0.029 Independently reviewed EKG as above atrial fibrillation with RVR rate 165 Imaging studies independently reviewed: CT of head without intracranial he [place], CT chest abdomen pelvis no acute finding Treatments: Fluids and thiamine 200 mg, Cardizem, metoprolol, heparin Consults: 12:30 p.m.. Spoke with Cardiology, Dr. Lio Bowling, recommend stopping Cardizem. Give IV bolus metoprolol, then if not effective then start esmolol drip, start heparin drip. No cardioversion as patient poor historian and uncertain history of paroxysmal AFib or onset. 12:50 p.m.. Spoke with hospitalist, Dr. Perea, will admit to ICU, pending troponin results To 8:[address] Perea. Troponin has returned. 0.029. He will see patient for admission, ICU Re-evaluations: Patient continuing to improve, awake and alert, no suicidal or homicidal ideation. States that he needs to stop drinking and wants help 1:22 p.m.. Heparin stopped. Platelet [address] Dejesus: Sign-out from Dr Mckeon, patient here for alcohol abuse. He is trying to quit drinking and is searching for possible rehab and detox. He is medically cleared and trauma cleared. Awaiting for social work consult. Patient is being held by his father to help stop drinking. No SI or HI. Currently not in withdrawal. 10:45 a.m.. Patient developed tachycardia. EKG does show AFib with RVR. No prior history of atrial fibrillation, uncertain onset other than now. This could be alcohol related. Reviewed with patient needs to be admitted for alcohol withdrawal. Has had some visual hallucinations here. No seizures. Is on CIWA protocol. Bruising noted on the left chest wall. Patient denies any pain on palpation. Does not know how he got the bruising Patient laboratory studies likely due to alcohol as well as possibly atrial fibrillation due to alcohol. 2:08 p.m.. Heart rate much better at 1:20 a.m. with esmolol drip. <Jason Dejesus MD - Last Filed: 06/20/23 09:15> Critical Care Time Attestation: Critical Care Time 35 minutes: Patient requiring ICU admit. Requiring heparin drip. New onset atrial fibrillation alcohol withdrawal. Requiring esmolol drip Critical care time is separate from other billable procedures. This critical care time includes consultation with family and other consulting doctors, review of records, and interpretation of data from labs, EKGs, imaging, etc. Discharge Plan Departure Patient Disposition: Admitted As Inpatient Clinical Impression: Alcohol withdrawal delirium, Atrial fibrillation, new onset Admit Date/Time: 06/12/23 14:06 Admit Provider: Tree Perea
[2023-06-12 03:56] LABS: UR Morphine/Opiate cutoff 300 Negative (Negative); Ur Creatinine 50 (Normal); Ur Specific Gravity >1.030 (Normal); Urine Amphetamines Negative (Negative); Urine Barbiturates Negative (Negative); Urine Benzodiazepines Negative (Negative); Urine Cocaine Negative (Negative); Urine MDMA Negative (Negative); Urine Methadone Negative (Negative); Urine Methamphetamines Negative (Negative); Urine Oxycodone Negative (Negative); Urine Phencyclidine Negative (Negative); Urine Tetrahydrocannabinol Negative (Negative); Urine Tricyclic Antidepressant Negative (Negative); Urine pH 5 (Normal)
[2023-06-12] MEDS: THIAMINE 200 MG in SODIUM CHLORIDE 0.9% 100 ML 408 MG IV (04:08)
[2023-06-12 06:43] LABS: Amorphous Sediment Urine 4+; Bacteria Urine None Seen; Culture Indicated Urine Specimen Cultured; RBC Urine None Seen (0-5/HPF); Squamous Epithelial Cell Urine 0-1 /HPF (0-5/HPF); WBC Urine None Seen (0-5/HPF)
[2023-06-12] MEDS: SODIUM CHLORIDE 0.9% 1,000 ML 1000 ML IV (10:31)
[2023-06-12] MEDS: cephALEXin 250 MG CAPSULE 500 MG PO (10:31)
[2023-06-12] MEDS: ONDANSETRON 4 MG/2 ML INJ IV (10:31)
--- NOTE | 2023-06-12 10:44 | DI.CT.S_ITS ---
PROCEDURE: CT CHEST ABD PEL W CON INDICATIONS: Fall/trauma TECHNIQUE: After the administration of intravenous contrast, 5 mm thick sections acquired from the lung apices to the symphysis. 2.5 mm thick coronal and sagittal reformats were acquired. Additional 7 mm thick coronal maximum intensity projection (MIP) reformats acquired through the lungs. Optional 10-minute delayed imaging may be performed from the kidneys to the bladder. For radiation dose reduction, the following was used: automated exposure control, adjustment of mA and/or kV according to patient size. COMPARISON: None. FINDINGS: Image quality: Excellent. CHEST: Lungs: No pulmonary contusions or lacerations. No acute airspace opacities. No pneumothorax or hemothorax. Central and peripheral airways appear patent and normal in caliber. Mediastinum: No mediastinal hematomas. Heart size is normal. No pericardial effusion. Thoracic aorta and pulmonary arteries demonstrate normal size and enhancement. No mediastinal or hilar adenopathy. Esophagus is normal in caliber. No hiatal hernia. Chest wall: No rib fractures. No subcutaneous emphysema. No axillary or supraclavicular adenopathy. Thyroid gland is unremarkable. ABDOMEN: Solid organs: The liver is markedly enlarged and hypodense consistent with diffuse fatty infiltration. No hepatic laceration. Gallbladder is unremarkable. Biliary system is non-dilated. Pancreas enhances normally, without transection. The spleen measures 15.2 cm in length. No splenic lacerations. No adrenal hematomas. Both kidneys enhance normally, without hydronephrosis or lacerations. Peritoneum and bowel: There is a small amount of low-density perihepatic free fluid and trace free mesenteric fluid. The stomach and small bowel demonstrate normal caliber and wall thickness. The appendix is thin walled and gas filled. The bowel demonstrates overall normal caliber and wall thickness. Mild circumferential wall thickening is present within the transverse colon. No discrete associated pericolonic fat stranding to suggest acute colitis. Nodes and vessels: No retroperitoneal or mesenteric adenopathy. Aorta and inferior vena cava are normal in size and enhancement. Miscellaneous: No ventral hernias. PELVIS: Genitourinary: Bladder wall thickness is normal. Miscellaneous: No inguinal hernias or adenopathy. Bones: Pelvic ring and hip joints appear intact. No vertebral compression fractures. IMPRESSION: 1. Severe hepatomegaly and hepatic steatosis. 2. Splenomegaly. 3. Small amount of low-density perihepatic and intra-abdominal free fluid which may be related to portal hypertension. 4. No acute thoracic or intra-abdominal findings. Normal appendix. Dictated by: Ashly Jurado M.D. on 06/12/2023 at 11:58 Approved by: Ashly Jurado M.D. on 06/12/2023 at 12:10
[2023-06-12] MEDS: LORazepam 2 MG/ML INJ IV ×3 (10:52→23:42)
[2023-06-12] MEDS: dilTIAZem 5 MG/ML SDV 10 MG IV (10:53)
--- NOTE | 2023-06-12 11:16 | PC.NURSE ---
Addendum entered by Simón Thakur CNA 06/12/23 14:01: Assisted patient to urinate while in bed using urinal. 300ml dark juan urine. Addendum entered by Simón Thakur CNA 06/12/23 11:43: RN accompanied patient to CT. Patient returned to ED at 1133. Addendum entered by Simón Thakur CNA 06/12/23 11:19: Patient was taken for CT scan. Original Note: Patient was offered oral hygiene and a basin for bed bath, but patient declined.
[2023-06-12] MEDS: DILTIAZEM 125 MG/125 ML PIGGYBACK IV (11:39)
--- NOTE | 2023-06-12 12:27 | PC.NURSE ---
no evidence of seizure activity. pt is on cardizem at [address] mendiola at bedside
[2023-06-12] MEDS: MAGNESIUM SULFATE 2 GM/50 ML PIGGYBACK IV (12:38)
[2023-06-12] MEDS: METOPROLOL TARTRATE 5 MG/5 ML INJ IV (12:46)
[2023-06-12 12:59] LABS: Creatine Kinase 514 U/L (55-170)
[2023-06-12] MEDS: HEPARIN DRIP 25,000 UNIT/500 ML IV.SOLN 37.44 UNIT IV (13:02)
[2023-06-12] MEDS: ESMOLOL 2.5 GM/250 ML IV.SOLN IV ×4 (13:13→19:46)
[2023-06-12 13:16] LABS: Add Manual Diff / Slide Review NO; Alanine Aminotransferase 158 IU/L (<50); Albumin 3.6 g/dL (3.5-5.0); Albumin Globulin Ratio 0.9 (1.0-2.8); Alkaline Phosphatase 161 U/L (38-126); Aspartate Aminotransferase 374 IU/L (17-59); BUN Creatinine Ratio 9.8 (6-22); Basophils Absolute Auto 0 /uL (0-100); Basophils Percent Auto 0.5 % (0-2); Bilirubin Total 5.6 mg/dL (0.2-1.3); Blood Urea Nitrogen 5 mg/dL (9-20); Calcium 7.5 mg/dL (8.4-10.2); Carbon Dioxide 23 mmol/L (22-32); Chloride 88 mmol/L (98-107); Eosinophils Absolute Auto 0 /uL (0-450); Eosinophils Percent Auto 0.8 % (2-4); Estimated Glomerular Filt Rate > 60 mL/min (>60); Globulin 4.1 g/dL (1.7-4.1); Glucose 107 mg/dL (70-100); HEMOLYSIS < 15 (0-50); Hematocrit 41.3 % (41-53); Hemoglobin 14.3 g/dL (13.5-17.5); Lymphocytes Absolute Auto 800 /uL (1100-4500); Lymphocytes Percent Auto 14.1 % (25-40); Mean Corpuscular HGB Conc 34.7 % (30-36); Mean Corpuscular Hemoglobin 34.7 PG (26-34); Monocytes Absolute Auto 400 /uL (0-900); Monocytes Percent Auto 7.2 % (3-14); Neutrophils Absolute Auto 4600 /uL (1500-7000); Neutrophils Percent Auto 77.4 % (50-75); Potassium 3.1 mmol/L (3.4-5.1); Red Blood Cell Count 4.13 X10^6/uL (4.5-5.9); Red Cell Distribution Width 14.5 % (11.6-14.8); Sodium 128 mmol/L (137-145); Total Protein 7.7 g/dL (6.3-8.2)
[2023-06-12 13:18] LABS: Platelet Count 35 X10^3/uL (150-400)
[2023-06-12 13:26] LABS: PTT Partial Thromboplastin Tim 36 SECONDS (26-36)
[2023-06-12 13:32] LABS: Troponin I 0.029 ng/mL (0.01-0.034)
[2023-06-12 13:35] LABS: Ethanol (ETOH) 179 mg/dL; Macrocytosis 1+; Platelet Estimate Decreased on smear
[2023-06-12] MEDS: SODIUM CHLORIDE 0.9% 1,000 ML 100 ML IV (13:48)
[2023-06-12 14:50] LABS: Lactate (Lactic Acid) 5.8 mmol/L (0.7-2.1)
--- NOTE | 2023-06-12 14:55 | DI.US.S_ITS ---
PROCEDURE: US ABDOMEN COMPLETE INDICATIONS: HEPATOSPLENOMEGALY. FREE FLUID. ALSO ASSESS LIVER DOPPLER. TECHNIQUE: Real-time scanning was performed of the abdominal and retroperitoneal organs, with image documentation. COMPARISON: [facility], CT, CT CHEST ABD PEL W CON, 06/12/2023, 11:18. FINDINGS: Liver: Not well seen. Gallbladder: No stones. Wall thickness measures 3 mm. Biliary ducts: Biliary system is not well visualized. Pancreas: Visualized portions of the pancreas are sonographically normal. Spleen: Spleen is prominent measuring 16.8 cm. Kidneys: . Right kidney is not visualized; left kidney measures 14.0 cm long. No hydronephrosis or nephrolithiasis. No solid masses. Aorta: Visualized aorta is normal in caliber at less than 3 cm. Iliacs: Proximal common iliac arteries are normal in caliber at less than 2.5 cm. IVC: Intrahepatic inferior vena cava is patent. Miscellaneous: Mild perihepatic fluid.. IMPRESSION: Limited visualization of multiple structures as above secondary to patient body habitus. Borderline gallbladder wall thickening without stones. Recommend correlation to pain as wall thickening can be secondary to cholecystitis but also hepatic disease and other etiologies. Mild perihepatic fluid. Dictated by: Diana Tavarez M.D. on 06/12/2023 at 19:14 Approved by: Diana Tavarez M.D. on 06/12/2023 at 19:16
[2023-06-12 15:20] LABS: INR 1.5 (0.9-1.3); Prothrombin Time 17.6 SECONDS (10.1-12.7)
[2023-06-12 15:30] LABS: TSH w/ Reflex to FT4 2.77 uIU/mL (0.47-4.68)
[2023-06-12] MEDS: POTASSIUM CHLORIDE IN WATER 10 MEQ/100 ML PIGGYBACK 100 MEQ IV ×4 (16:05→19:35)
[2023-06-12] MEDS: LACTATED RINGERS 1,000 ML 1000 ML IV ×3 (16:05→20:45)
[2023-06-12 16:39] LABS: Reflexed Lactate in 2 Hours Y
--- NOTE | 2023-06-12 16:44 | PM.CN.EICU ---
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 Perea Narrative: Patient is a 43 year old male with history of alcohol abuse who presents with alcohol intoxication. On presentation, labs notable for AST 431, ALT 164, ALP 165, TB 4.8, lipase 554, and INR 1.5. Calculated DF -> 32 and started on solumedrol. He was also found to have A fib w/ RVR and started on esmolol gtt. Cardiology consulted. Admitted to ICU for alcohol withdrawal with possible needing precedex gtt. CTchest/ abdomen/pelvis: 1. Severe hepatomegaly and hepatic steatosis. ? 2. Splenomegaly. ? 3. Small amount of low-density perihepatic and intra-abdominal free fluid which may be related to portal hypertension.? ? 4. No acute thoracic or intra-abdominal findings.? Normal appendix. [facility] Social History Smoking Status: Unknown if ever smoked alcohol intake: current Current Medications Current Medications Medications: Home Medications No Known Home Medications 06/12/23 [History Confirmed 06/12/23] Visit Medications (administered) Generic Name Dose Route Start Last Admin Trade Name Freq PRN Reason Stop Dose Admin Esmolol HCl 2.5 gm in 250 mls @ 46.8 mls/hr 06/12/23 12:45 06/12/23 16:17 Brevibloc IV 100 mcg/kg/min TITRATE YAIR 93.6 mls/hr Titration Protocol 50 MCG/KG/MIN Sodium Chloride 1,000 mls @ 150 mls/hr 06/12/23 13:35 06/12/23 13:48 Normal Saline 0.9% IV 06/12/23 20:14 100 mls/hr BOLUS ONE Administration dexmedeTOMIDine in 0.9 % NaCL 400 mcg in 100 mls @ 7.8 mls/hr 06/12/23 14:45 06/12/23 16:18 Precedex IV Not Given TITRATE YAIR Protocol 0.2 MCG/KG/HR POTASSIUM CHLORIDE IN WATER 10 meq in 100 mls @ 100 mls/hr 06/12/23 15:00 06/12/23 16:05 Potassium Cl 10 Meq/100 Ml Ana Maria IV 06/12/23 18:59 100 mls/hr Q1H YAIR Administration Lorazepam 0 mg 06/12/23 10:15 06/12/23 14:02 Lorazepam 2 Mg/Ml Inj IV 2 mg CIWAPRN PRN Administration Alcohol Withdrawal Protocol Ondansetron HCl 4 mg 06/12/23 10:15 06/12/23 10:31 Ondansetron 4 Mg/2 Ml Inj IV 4 mg Q6HR PRN Administration Nausea And Vomiting Exam Vital Signs (past 8 hours): - 06/12/23 10:16 06/12/23 10:42 06/12/23 10:44 Temperature 97.8 F Pulse Rate 156 H 165 H 175 H Respiratory Rate 18 20 17 Blood Pressure Blood Pressure [Right Arm] 184/77 H Pulse Oximetry 96 94 Oxygen Delivery Method Room Air Oxygen Flow Rate 06/12/23 10:44 06/12/23 10:45 06/12/23 10:50 Temperature Pulse Rate 172 H 175 H Respiratory Rate 22 23 Blood Pressure 157/89 H Blood Pressure [Right Arm] Pulse Oximetry 95 95 Oxygen Delivery Method Oxygen Flow Rate 06/12/23 10:55 06/12/23 11:00 06/12/23 11:00 Temperature Pulse Rate 158 H 164 H Respiratory Rate 18 16 Blood Pressure 176/127 H Blood Pressure [Right Arm] Pulse Oximetry 94 92 Oxygen Delivery Method Room Air Oxygen Flow Rate 06/12/23 11:05 06/12/23 11:10 06/12/23 11:15 Temperature Pulse Rate 176 H 174 H 170 H Respiratory Rate 27 H 26 H 21 Blood Pressure Blood Pressure [Right Arm] Pulse Oximetry 91 93 91 Oxygen Delivery Method Oxygen Flow Rate 06/12/23 11:20 06/12/23 11:25 06/12/23 11:25 Temperature Pulse Rate 175 H 197 H Respiratory Rate 33 H 45 H Blood Pressure 179/146 H Blood Pressure [Right Arm] Pulse Oximetry 92 93 Oxygen Delivery Method Oxygen Flow Rate 06/12/23 11:30 06/12/23 11:30 06/12/23 11:35 Temperature Pulse Rate 171 H 177 H Respiratory Rate 32 H 33 H Blood Pressure 184/151 H Blood Pressure [Right Arm] Pulse Oximetry 94 Oxygen Delivery Method Oxygen Flow Rate 06/12/23 11:37 06/12/23 11:37 06/12/23 11:40 Temperature Pulse Rate 175 H 172 H Respiratory Rate 28 H 21 Blood Pressure 128/75 Blood Pressure [Right Arm] Pulse Oximetry 95 95 Oxygen Delivery Method Oxygen Flow Rate 06/12/23 11:45 06/12/23 11:48 06/12/23 11:48 Temperature Pulse Rate 172 H 175 H Respiratory Rate 22 22 Blood Pressure 124/72 Blood Pressure [Right Arm] Pulse Oximetry 95 94 Oxygen Delivery Method Oxygen Flow Rate 06/12/23 11:50 06/12/23 11:50 06/12/23 11:55 Temperature Pulse Rate 170 H Respiratory Rate 17 Blood Pressure 122/79 127/70 Blood Pressure [Right Arm] Pulse Oximetry 94 Oxygen Delivery Method Oxygen Flow Rate 06/12/23 11:55 06/12/23 12:00 06/12/23 12:00 Temperature Pulse Rate 171 H 176 H Respiratory Rate 24 25 H Blood Pressure 143/77 H Blood Pressure [Right Arm] Pulse Oximetry 93 94 Oxygen Delivery Method Oxygen Flow Rate 06/12/23 12:05 06/12/23 12:05 06/12/23 12:10 Temperature Pulse Rate 181 H 178 H Respiratory Rate 20 20 Blood Pressure 138/73 Blood Pressure [Right Arm] Pulse Oximetry 96 95 Oxygen Delivery Method Oxygen Flow Rate 06/12/23 12:15 06/12/23 12:18 06/12/23 12:18 Temperature Pulse Rate 177 H 172 H Respiratory Rate 30 H 31 H Blood Pressure 145/93 H Blood Pressure [Right Arm] Pulse Oximetry 95 94 Oxygen Delivery Method Oxygen Flow Rate 06/12/23 12:20 06/12/23 12:20 06/12/23 12:25 Temperature Pulse Rate 174 H Respiratory Rate 22 Blood Pressure 137/82 157/99 H Blood Pressure [Right Arm] Pulse Oximetry 96 Oxygen Delivery Method Oxygen Flow Rate 06/12/23 12:25 06/12/23 12:30 06/12/23 12:30 Temperature Pulse Rate 170 H 163 H Respiratory Rate 27 H 28 H Blood Pressure 148/77 H Blood Pressure [Right Arm] Pulse Oximetry 93 92 Oxygen Delivery Method Oxygen Flow Rate 06/12/23 12:35 06/12/23 12:35 06/12/23 12:40 Temperature Pulse Rate 166 H Respiratory Rate 28 H Blood Pressure 174/74 H 162/77 H Blood Pressure [Right Arm] Pulse Oximetry 92 Oxygen Delivery Method Oxygen Flow Rate 06/12/23 12:40 06/12/23 12:45 06/12/23 12:45 Temperature Pulse Rate 164 H 164 H Respiratory Rate 28 H 28 H Blood Pressure 149/88 H Blood Pressure [Right Arm] Pulse Oximetry 94 93 Oxygen Delivery Method Oxygen Flow Rate 06/12/23 12:50 06/12/23 12:50 06/12/23 12:55 Temperature Pulse Rate 142 H Respiratory Rate 20 Blood Pressure 154/109 H 161/86 H Blood Pressure [Right Arm] Pulse Oximetry 95 Oxygen Delivery Method Oxygen Flow Rate 06/12/23 12:55 06/12/23 13:00 06/12/23 13:00 Temperature Pulse Rate 119 H 127 H Respiratory Rate 33 H 34 H Blood Pressure 147/70 H Blood Pressure [Right Arm] Pulse Oximetry 92 93 Oxygen Delivery Method Oxygen Flow Rate 06/12/23 13:05 06/12/23 13:05 06/12/23 13:10 Temperature Pulse Rate 129 H Respiratory Rate 27 H Blood Pressure 140/80 143/78 H Blood Pressure [Right Arm] Pulse Oximetry 94 Oxygen Delivery Method Oxygen Flow Rate 06/12/23 13:10 06/12/23 13:15 06/12/23 13:15 Temperature Pulse Rate 138 H 135 H Respiratory Rate 32 H 34 H Blood Pressure 152/75 H Blood Pressure [Right Arm] Pulse Oximetry 92 92 Oxygen Delivery Method Oxygen Flow Rate 06/12/23 13:20 06/12/23 13:20 06/12/23 13:25 Temperature Pulse Rate 126 H Respiratory Rate 33 H Blood Pressure 152/80 H 149/100 H Blood Pressure [Right Arm] Pulse Oximetry 91 Oxygen Delivery Method Oxygen Flow Rate 06/12/23 13:25 06/12/23 13:30 06/12/23 13:30 Temperature 98.8 F Pulse Rate 121 H 125 H Respiratory Rate 31 H 30 H Blood Pressure 119/75 Blood Pressure [Right Arm] Pulse Oximetry 93 94 Oxygen Delivery Method Room Air Oxygen Flow Rate 06/12/23 13:35 06/12/23 13:35 06/12/23 13:40 Temperature Pulse Rate 122 H Respiratory Rate 32 H Blood Pressure 138/78 144/86 H Blood Pressure [Right Arm] Pulse Oximetry 91 Oxygen Delivery Method Oxygen Flow Rate 06/12/23 13:40 06/12/23 13:45 06/12/23 13:45 Temperature Pulse Rate 116 H 124 H Respiratory Rate 30 H 31 H Blood Pressure 144/86 H Blood Pressure [Right Arm] Pulse Oximetry 93 94 Oxygen Delivery Method Oxygen Flow Rate 06/12/23 13:50 06/12/23 13:50 06/12/23 13:55 Temperature Pulse Rate 128 H Respiratory Rate 30 H Blood Pressure 145/85 H 157/90 H Blood Pressure [Right Arm] Pulse Oximetry 93 Oxygen Delivery Method Room Air Oxygen Flow Rate 06/12/23 13:55 06/12/23 14:00 06/12/23 14:00 Temperature Pulse Rate 131 H 129 H Respiratory Rate 32 H 26 H Blood Pressure 146/74 H Blood Pressure [Right Arm] Pulse Oximetry 93 89 L Oxygen Delivery Method Oxygen Flow Rate 06/12/23 14:05 06/12/23 14:05 06/12/23 14:10 Temperature Pulse Rate 122 H Respiratory Rate 22 Blood Pressure 138/75 147/88 H Blood Pressure [Right Arm] Pulse Oximetry Oxygen Delivery Method Oxygen Flow Rate 06/12/23 14:10 06/12/23 14:15 06/12/23 14:15 Temperature Pulse Rate 127 H 124 H Respiratory Rate 31 H 31 H Blood Pressure 117/84 Blood Pressure [Right Arm] Pulse Oximetry 91 Oxygen Delivery Method Nasal Cannula Oxygen Flow Rate 2 06/12/23 14:30 06/12/23 15:43 06/12/23 16:00 Temperature 98.7 F 99.0 F Pulse Rate 136 H 126 H 138 H Respiratory Rate 23 27 H 29 H Blood Pressure 111/69 118/78 Blood Pressure [Right Arm] Pulse Oximetry 98 97 Oxygen Delivery Method Oxygen Flow Rate 2 2 06/12/23 16:14 06/12/23 14:20 06/12/23 14:25 Temperature 98.6 F Pulse Rate 125 H Respiratory Rate 26 H Blood Pressure 127/102 H 111/69 119/79 Blood Pressure [Right Arm] Pulse Oximetry 89 L Oxygen Delivery Method Oxygen Flow Rate 2 06/12/23 14:25 06/12/23 14:30 06/12/23 14:30 Temperature Pulse Rate 134 H 134 H Respiratory Rate 34 H 30 H Blood Pressure 128/55 L Blood Pressure [Right Arm] Pulse Oximetry 94 91 Oxygen Delivery Method Oxygen Flow Rate Oxygen Delivery Method Nasal Cannula Oxygen Flow Rate 2 Objective Labs 06/12/23 12:22 06/12/23 12:22 Labs: Laboratory Results - last 24 hr 06/11/23 06/11/23 06/11/23 23:54 23:54 23:54 WBC 5.3 RBC 4.05 L Hgb 14.1 Hct 40.7 L MCV 100.5 H MCH 34.8 H MCHC 34.7 RDW 14.4 Plt Count 36 L* Neut % (Auto) 72.3 Lymph % (Auto) 17.3 L [place] % (Auto) 8.1 Eos % (Auto) 1.8 L Baso % (Auto) 0.5 Neut # (Auto) 3800 Lymph # (Auto) 900 L [place] # (Auto) 400 Eos # (Auto) 100 Baso # (Auto) 0 Platelet Estimate Decreased on smear RBC Morphology See below Anisocytosis 2+ H Macrocytosis 1+ H PT 16.9 H INR 1.5 H APTT Sodium Potassium Chloride Carbon Dioxide BUN Creatinine Estimated GFR BUN/Creatinine Ratio Glucose Lactate Calcium Magnesium Total Bilirubin AST ALT Alkaline Phosphatase Total Creatine Kinase Troponin I Total Protein Albumin Globulin Albumin/Globulin Ratio Lipase TSH Urine RBC Urine WBC Ur Squamous Epith Cells Amorphous Sediment Urine Bacteria Ur Culture Indicated? Salicylates < 1.0 U Opiates 300ng/mL cut Ur Oxycodone Screen Urine Methadone Screen Acetaminophen < 10 Ur Barbiturates Screen U Tricyclic Antidepress Ur Phencyclidine Scrn Ur Amphetamines Screen U Methamphetamines Scrn Ur MDMA Scrn (Ecstasy) U Benzodiazepines Scrn Urine Cocaine Screen U Marijuana (THC) Screen Ethyl Alcohol 410 H* 06/11/23 06/12/23 06/12/23 23:54 03:39 03:39 WBC RBC Hgb Hct MCV MCH MCHC RDW Plt Count Neut % (Auto) Lymph % (Auto) [place] % (Auto) Eos % (Auto) Baso % (Auto) Neut # (Auto) Lymph # (Auto) [place] # (Auto) Eos # (Auto) Baso # (Auto) Platelet Estimate RBC Morphology Anisocytosis Macrocytosis PT INR APTT Sodium 132 L Potassium 3.7 Chloride 89 L Carbon Dioxide 28 BUN 6 L Creatinine 0.54 L Estimated GFR > 60 BUN/Creatinine Ratio 11.1 Glucose 126 H Lactate Calcium 7.9 L Magnesium 1.9 Total Bilirubin 4.8 H AST 431 H ALT 164 H Alkaline Phosphatase 165 H Total Creatine Kinase Troponin I Total Protein 8.2 Albumin 3.8 Globulin 4.4 H Albumin/Globulin Ratio 0.9 L Lipase 554 H TSH Urine RBC None seen Urine WBC None seen Ur Squamous Epith Cells 0-1 /hpf Amorphous Sediment 4+ Urine Bacteria None seen Ur Culture Indicated? Specimen cultured Salicylates U Opiates 300ng/mL cut Negative Ur Oxycodone Screen Negative Urine Methadone Screen Negative Acetaminophen Ur Barbiturates Screen Negative U Tricyclic Antidepress Negative Ur Phencyclidine Scrn Negative Ur Amphetamines Screen Negative U Methamphetamines Scrn Negative Ur MDMA Scrn (Ecstasy) Negative U Benzodiazepines Scrn Negative Urine Cocaine Screen Negative U Marijuana (THC) Screen Negative Ethyl Alcohol 06/12/23 06/12/23 06/12/23 12:22 12:22 12:22 WBC 6.0 RBC 4.13 L Hgb 14.3 Hct 41.3 MCV 100.0 MCH 34.7 H MCHC 34.7 RDW 14.5 Plt Count 35 L* Neut % (Auto) 77.4 H Lymph % (Auto) 14.1 L [place] % (Auto) 7.2 Eos % (Auto) 0.8 L Baso % (Auto) 0.5 Neut # (Auto) 4600 Lymph # (Auto) 800 L [place] # (Auto) 400 Eos # (Auto) 0 Baso # (Auto) 0 Platelet Estimate Decreased on smear RBC Morphology See below Anisocytosis Macrocytosis 1+ H PT INR APTT Sodium 128 L Potassium 3.1 L Chloride 88 L Carbon Dioxide 23 BUN 5 L Creatinine 0.51 L Estimated GFR > 60 BUN/Creatinine Ratio 9.8 Glucose 107 H Lactate Calcium 7.5 L Magnesium Total Bilirubin 5.6 H AST 374 H ALT 158 H Alkaline Phosphatase 161 H Total Creatine Kinase 514 H Troponin I 0.029 Total Protein 7.7 Albumin 3.6 Globulin 4.1 Albumin/Globulin Ratio 0.9 L Lipase TSH Urine RBC Urine WBC Ur Squamous Epith Cells Amorphous Sediment Urine Bacteria Ur Culture Indicated? Salicylates U Opiates 300ng/mL cut Ur Oxycodone Screen Urine Methadone Screen Acetaminophen Ur Barbiturates Screen U Tricyclic Antidepress Ur Phencyclidine Scrn Ur Amphetamines Screen U Methamphetamines Scrn Ur MDMA Scrn (Ecstasy) U Benzodiazepines Scrn Urine Cocaine Screen U Marijuana (THC) Screen Ethyl Alcohol 179 H 09/13/23 09/13/23 09/13/23 12:22 12:22 12:22 WBC RBC Hgb Hct MCV MCH MCHC RDW Plt Count Neut % (Auto) Lymph % (Auto) [place] % (Auto) Eos % (Auto) Baso % (Auto) Neut # (Auto) Lymph # (Auto) [place] # (Auto) Eos # (Auto) Baso # (Auto) Platelet Estimate RBC Morphology Anisocytosis Macrocytosis PT INR APTT 36 Sodium Potassium Chloride Carbon Dioxide BUN Creatinine Estimated GFR BUN/Creatinine Ratio Glucose Lactate 5.8 H* Calcium Magnesium Total Bilirubin AST ALT Alkaline Phosphatase Total Creatine Kinase Troponin I Total Protein Albumin Globulin Albumin/Globulin Ratio Lipase TSH 2.77 Urine RBC Urine WBC Ur Squamous Epith Cells Amorphous Sediment Urine Bacteria Ur Culture Indicated? Salicylates U Opiates 300ng/mL cut Ur Oxycodone Screen Urine Methadone Screen Acetaminophen Ur Barbiturates Screen U Tricyclic Antidepress Ur Phencyclidine Scrn Ur Amphetamines Screen U Methamphetamines Scrn Ur MDMA Scrn (Ecstasy) U Benzodiazepines Scrn Urine Cocaine Screen U Marijuana (THC) Screen Ethyl Alcohol 06/12/23 13:03 WBC RBC Hgb Hct MCV MCH MCHC RDW Plt Count Neut % (Auto) Lymph % (Auto) [place] % (Auto) Eos % (Auto) Baso % (Auto) Neut # (Auto) Lymph # (Auto) [place] # (Auto) Eos # (Auto) Baso # (Auto) Platelet Estimate RBC Morphology Anisocytosis Macrocytosis PT 17.6 H INR 1.5 H APTT Sodium Potassium Chloride Carbon Dioxide BUN Creatinine Estimated GFR BUN/Creatinine Ratio Glucose Lactate Calcium Magnesium Total Bilirubin AST ALT Alkaline Phosphatase Total Creatine Kinase Troponin I Total Protein Albumin Globulin Albumin/Globulin Ratio Lipase TSH Urine RBC Urine WBC Ur Squamous Epith Cells Amorphous Sediment Urine Bacteria Ur Culture Indicated? Salicylates U Opiates 300ng/mL cut Ur Oxycodone Screen Urine Methadone Screen Acetaminophen Ur Barbiturates Screen U Tricyclic Antidepress Ur Phencyclidine Scrn Ur Amphetamines Screen U Methamphetamines Scrn Ur MDMA Scrn (Ecstasy) U Benzodiazepines Scrn Urine Cocaine Screen U Marijuana (THC) Screen Ethyl Alcohol Assessment & Plan Assessment & Plan narrative: NEURO: # Alcohol withdrawal -- Currently intoxication but at risk for severe alcohol withdrawal -- On thiamine, folic acid, and MTV -- Precedex gtt as needed for RASS > 2+ RESP: -- ON room air -- Encourage IS CVS: # A fib w. RVR -- Secondary to holiday heart syndrome -- On esomolol gtt -- Cont IVF resuscitation -- High lytes goal -- Recommend checking TTE -- High lytes goal -- Cardiology following GI: # Alcoholic hepatitis -- DF 32 -- Start solumedrol therapy -- Trend LFTs ENDO: -- Goal BS < 180 D/w Dr. Perea. Time Spent With Patient Time with patient: 30 to 49 minutes with 50% spent counseling/coordinating care
[2023-06-12 17:04] LABS: MRSA (Nasal) PCR Not Detected (Not Detect)
[2023-06-12] MEDS: LACTATED RINGERS 1,000 ML 100 ML IV (17:25)
--- NOTE | 2023-06-12 17:51 | PC.ADMIT ---
Admission Note: Patient to room 227 from ER via stretcher. Assisted to bed via slider board. Awake and able to answer some questions, oriented to self, birthdate, place, and situation. CIWA 4. Esmolol gtt infusing, afib RVR in the 120-130s. 1L LR bolus given per orders for lactate of 5.8. Midline placed at bedside by DI nurse, midline draw for repeat lactate sent. Oriented pt to room and to call light/bed/tv controls. Bed alarm on. Pt initially one to one as per ER assessment. Reassessed by Dr. Perea and order received to D/C one to one, pt denies any suicidal ideation at this time. Pt currently receiving abdominal U/S. 2L NC in place with SPo2 variable 93-96%. Desats to upper 80s on RA. Call light within reach. The patient,Maury Singer,43 y/o, was given written information regarding hospital policies, unit procedures and contact persons. Vital Signs - 8 hr 06/12/23 10:16 06/12/23 10:42 06/12/23 10:44 Temperature 97.8 F Pulse Rate 156 H 165 H 175 H Respiratory Rate 18 20 17 Blood Pressure Blood Pressure [Right Arm] 184/77 H Pulse Oximetry 96 94 Oxygen Delivery Method Room Air Oxygen Flow Rate 06/12/23 10:44 06/12/23 10:45 06/12/23 10:50 Temperature Pulse Rate 172 H 175 H Respiratory Rate 22 23 Blood Pressure 157/89 H Blood Pressure [Right Arm] Pulse Oximetry 95 95 Oxygen Delivery Method Oxygen Flow Rate 06/12/23 10:55 06/12/23 11:00 06/12/23 11:00 Temperature Pulse Rate 158 H 164 H Respiratory Rate 18 16 Blood Pressure 176/127 H Blood Pressure [Right Arm] Pulse Oximetry 94 92 Oxygen Delivery Method Room Air Oxygen Flow Rate 06/12/23 11:05 06/12/23 11:10 06/12/23 11:15 Temperature Pulse Rate 176 H 174 H 170 H Respiratory Rate 27 H 26 H 21 Blood Pressure Blood Pressure [Right Arm] Pulse Oximetry 91 93 91 Oxygen Delivery Method Oxygen Flow Rate 06/12/23 11:20 06/12/23 11:25 06/12/23 11:25 Temperature Pulse Rate 175 H 197 H Respiratory Rate 33 H 45 H Blood Pressure 179/146 H Blood Pressure [Right Arm] Pulse Oximetry 92 93 Oxygen Delivery Method Oxygen Flow Rate 06/12/23 11:30 06/12/23 11:30 06/12/23 11:35 Temperature Pulse Rate 171 H 177 H Respiratory Rate 32 H 33 H Blood Pressure 184/151 H Blood Pressure [Right Arm] Pulse Oximetry 94 Oxygen Delivery Method Oxygen Flow Rate 06/12/23 11:37 06/12/23 11:37 06/12/23 11:40 Temperature Pulse Rate 175 H 172 H Respiratory Rate 28 H 21 Blood Pressure 128/75 Blood Pressure [Right Arm] Pulse Oximetry 95 95 Oxygen Delivery Method Oxygen Flow Rate 06/12/23 11:45 06/12/23 11:48 06/12/23 11:48 Temperature Pulse Rate 172 H 175 H Respiratory Rate 22 22 Blood Pressure 124/72 Blood Pressure [Right Arm] Pulse Oximetry 95 94 Oxygen Delivery Method Oxygen Flow Rate 06/12/23 11:50 06/12/23 11:50 06/12/23 11:55 Temperature Pulse Rate 170 H Respiratory Rate 17 Blood Pressure 122/79 127/70 Blood Pressure [Right Arm] Pulse Oximetry 94 Oxygen Delivery Method Oxygen Flow Rate 06/12/23 11:55 06/12/23 12:00 06/12/23 12:00 Temperature Pulse Rate 171 H 176 H Respiratory Rate 24 25 H Blood Pressure 143/77 H Blood Pressure [Right Arm] Pulse Oximetry 93 94 Oxygen Delivery Method Oxygen Flow Rate 06/12/23 12:05 06/12/23 12:05 06/12/23 12:10 Temperature Pulse Rate 181 H 178 H Respiratory Rate 20 20 Blood Pressure 138/73 Blood Pressure [Right Arm] Pulse Oximetry 96 95 Oxygen Delivery Method Oxygen Flow Rate 06/12/23 12:15 06/12/23 12:18 06/12/23 12:18 Temperature Pulse Rate 177 H 172 H Respiratory Rate 30 H 31 H Blood Pressure 145/93 H Blood Pressure [Right Arm] Pulse Oximetry 95 94 Oxygen Delivery Method Oxygen Flow Rate 06/12/23 12:20 06/12/23 12:20 06/12/23 12:25 Temperature Pulse Rate 174 H Respiratory Rate 22 Blood Pressure 137/82 157/99 H Blood Pressure [Right Arm] Pulse Oximetry 96 Oxygen Delivery Method Oxygen Flow Rate 06/12/23 12:25 06/12/23 12:30 06/12/23 12:30 Temperature Pulse Rate 170 H 163 H Respiratory Rate 27 H 28 H Blood Pressure 148/77 H Blood Pressure [Right Arm] Pulse Oximetry 93 92 Oxygen Delivery Method Oxygen Flow Rate 06/12/23 12:35 06/12/23 12:35 06/12/23 12:40 Temperature Pulse Rate 166 H Respiratory Rate 28 H Blood Pressure 174/74 H 162/77 H Blood Pressure [Right Arm] Pulse Oximetry 92 Oxygen Delivery Method Oxygen Flow Rate 06/12/23 12:40 06/12/23 12:45 06/12/23 12:45 Temperature Pulse Rate 164 H 164 H Respiratory Rate 28 H 28 H Blood Pressure 149/88 H Blood Pressure [Right Arm] Pulse Oximetry 94 93 Oxygen Delivery Method Oxygen Flow Rate 06/12/23 12:50 06/12/23 12:50 06/12/23 12:55 Temperature Pulse Rate 142 H Respiratory Rate 20 Blood Pressure 154/109 H 161/86 H Blood Pressure [Right Arm] Pulse Oximetry 95 Oxygen Delivery Method Oxygen Flow Rate 06/12/23 12:55 06/12/23 13:00 06/12/23 13:00 Temperature Pulse Rate 119 H 127 H Respiratory Rate 33 H 34 H Blood Pressure 147/70 H Blood Pressure [Right Arm] Pulse Oximetry 92 93 Oxygen Delivery Method Oxygen Flow Rate 06/12/23 13:05 06/12/23 13:05 06/12/23 13:10 Temperature Pulse Rate 129 H Respiratory Rate 27 H Blood Pressure 140/80 143/78 H Blood Pressure [Right Arm] Pulse Oximetry 94 Oxygen Delivery Method Oxygen Flow Rate 06/12/23 13:10 06/12/23 13:15 06/12/23 13:15 Temperature Pulse Rate 138 H 135 H Respiratory Rate 32 H 34 H Blood Pressure 152/75 H Blood Pressure [Right Arm] Pulse Oximetry 92 92 Oxygen Delivery Method Oxygen Flow Rate 06/12/23 13:20 06/12/23 13:20 06/12/23 13:25 Temperature Pulse Rate 126 H Respiratory Rate 33 H Blood Pressure 152/80 H 149/100 H Blood Pressure [Right Arm] Pulse Oximetry 91 Oxygen Delivery Method Oxygen Flow Rate 06/12/23 13:25 06/12/23 13:30 06/12/23 13:30 Temperature 98.8 F Pulse Rate 121 H 125 H Respiratory Rate 31 H 30 H Blood Pressure 119/75 Blood Pressure [Right Arm] Pulse Oximetry 93 94 Oxygen Delivery Method Room Air Oxygen Flow Rate 06/12/23 13:35 06/12/23 13:35 06/12/23 13:40 Temperature Pulse Rate 122 H Respiratory Rate 32 H Blood Pressure 138/78 144/86 H Blood Pressure [Right Arm] Pulse Oximetry 91 Oxygen Delivery Method Oxygen Flow Rate 06/12/23 13:40 06/12/23 13:45 06/12/23 13:45 Temperature Pulse Rate 116 H 124 H Respiratory Rate 30 H 31 H Blood Pressure 144/86 H Blood Pressure [Right Arm] Pulse Oximetry 93 94 Oxygen Delivery Method Oxygen Flow Rate 06/12/23 13:50 06/12/23 13:50 06/12/23 13:55 Temperature Pulse Rate 128 H Respiratory Rate 30 H Blood Pressure 145/85 H 157/90 H Blood Pressure [Right Arm] Pulse Oximetry 93 Oxygen Delivery Method Room Air Oxygen Flow Rate 06/12/23 13:55 06/12/23 14:00 06/12/23 14:00 Temperature Pulse Rate 131 H 129 H Respiratory Rate 32 H 26 H Blood Pressure 146/74 H Blood Pressure [Right Arm] Pulse Oximetry 93 89 L Oxygen Delivery Method Oxygen Flow Rate 06/12/23 14:05 06/12/23 14:05 06/12/23 14:10 Temperature Pulse Rate 122 H Respiratory Rate 22 Blood Pressure 138/75 147/88 H Blood Pressure [Right Arm] Pulse Oximetry Oxygen Delivery Method Oxygen Flow Rate 06/12/23 14:10 06/12/23 14:15 06/12/23 14:15 Temperature Pulse Rate 127 H 124 H Respiratory Rate 31 H 31 H Blood Pressure 117/84 Blood Pressure [Right Arm] Pulse Oximetry 91 Oxygen Delivery Method Nasal Cannula Oxygen Flow Rate 2 06/12/23 14:30 06/12/23 15:43 06/12/23 16:00 Temperature 98.7 F 99.0 F Pulse Rate 136 H 126 H 138 H Respiratory Rate 23 27 H 29 H Blood Pressure 111/69 118/78 Blood Pressure [Right Arm] Pulse Oximetry 98 97 Oxygen Delivery Method Oxygen Flow Rate 2 2 06/12/23 16:14 06/12/23 14:20 06/12/23 14:25 Temperature 98.6 F Pulse Rate 125 H Respiratory Rate 26 H Blood Pressure 127/102 H 111/69 119/79 Blood Pressure [Right Arm] Pulse Oximetry 89 L Oxygen Delivery Method Oxygen Flow Rate 2 06/12/23 14:25 06/12/23 14:30 06/12/23 14:30 Temperature Pulse Rate 134 H 134 H Respiratory Rate 34 H 30 H Blood Pressure 128/55 L Blood Pressure [Right Arm] Pulse Oximetry 94 91 Oxygen Delivery Method Oxygen Flow Rate 06/12/23 16:57 06/12/23 17:00 Temperature 99.0 F Pulse Rate 146 H Respiratory Rate 24 Blood Pressure 160/81 H Blood Pressure [Right Arm] Pulse Oximetry 92 Oxygen Delivery Method Nasal Cannula Oxygen Flow Rate 2
[2023-06-12 17:54] LABS: Lactate 2HR (Lactic Acid Rflx) 4.5 mmol/L (0.7-2.1)
[2023-06-12] MEDS: chlordiazePOXIDE 25 MG CAPSULE 50 MG PO ×2 (18:08→20:51)
--- NOTE | 2023-06-12 19:26 | PM.HP.1 ---
History of Present Illness History of Present Illness Date Patient Seen: 06/12/23 Chief complaint: ETOH w/ SI Narrative: Maury Singer is a 43-year-old male with past medical history of alcohol dependence who presents intoxicated, brought in by EMS after falling out of bed and urinating himself. ETOH level of 410 on arrival. Patient states he drinks a 5th of liquor daily. He has drank every day without a single missed day for about a year. He has never been to alcohol treatment. He is interested in detoxing to go to rehab. In the ED patient found to be in atrial fibrillation with RVR. Heart rates were up to 170s. Diltiazem drip started which was ineffective even at max dose so cardiology contacted who recommended esmolol drip. Patient's CIWA scores were in 20s. Last drink was before he came into the ED. [facility] Social History Smoking Status: Unknown if ever smoked alcohol intake: current Meds Home Medications and Allergies Home Medications Medication Instructions Recorded Confirmed Type No Known Home Medications 06/12/23 06/12/23 History Allergies Allergy/AdvReac Type Severity Reaction Status Date / Time No Known Drug Allergies Allergy Verified 06/11/23 23:15 Review of Systems Review of Systems Narrative: All other systems reviewed with the patient and are negative unless otherwise stated. Exam Vital Signs (past 8 hours): - 06/12/23 11:30 06/12/23 11:30 06/12/23 11:35 Temperature Pulse Rate 171 H 177 H Respiratory Rate 32 H 33 H Blood Pressure 184/151 H Pulse Oximetry 94 Oxygen Delivery Method Oxygen Flow Rate 06/12/23 11:37 06/12/23 11:37 06/12/23 11:40 Temperature Pulse Rate 175 H 172 H Respiratory Rate 28 H 21 Blood Pressure 128/75 Pulse Oximetry 95 95 Oxygen Delivery Method Oxygen Flow Rate 06/12/23 11:45 06/12/23 11:48 06/12/23 11:48 Temperature Pulse Rate 172 H 175 H Respiratory Rate 22 22 Blood Pressure 124/72 Pulse Oximetry 95 94 Oxygen Delivery Method Oxygen Flow Rate 06/12/23 11:50 06/12/23 11:50 06/12/23 11:55 Temperature Pulse Rate 170 H Respiratory Rate 17 Blood Pressure 122/79 127/70 Pulse Oximetry 94 Oxygen Delivery Method Oxygen Flow Rate 06/12/23 11:55 06/12/23 12:00 06/12/23 12:00 Temperature Pulse Rate 171 H 176 H Respiratory Rate 24 25 H Blood Pressure 143/77 H Pulse Oximetry 93 94 Oxygen Delivery Method Oxygen Flow Rate 06/12/23 12:05 06/12/23 12:05 06/12/23 12:10 Temperature Pulse Rate 181 H 178 H Respiratory Rate 20 20 Blood Pressure 138/73 Pulse Oximetry 96 95 Oxygen Delivery Method Oxygen Flow Rate 06/12/23 12:15 06/12/23 12:18 06/12/23 12:18 Temperature Pulse Rate 177 H 172 H Respiratory Rate 30 H 31 H Blood Pressure 145/93 H Pulse Oximetry 95 94 Oxygen Delivery Method Oxygen Flow Rate 06/12/23 12:20 06/12/23 12:20 06/12/23 12:25 Temperature Pulse Rate 174 H Respiratory Rate 22 Blood Pressure 137/82 157/99 H Pulse Oximetry 96 Oxygen Delivery Method Oxygen Flow Rate 06/12/23 12:25 06/12/23 12:30 06/12/23 12:30 Temperature Pulse Rate 170 H 163 H Respiratory Rate 27 H 28 H Blood Pressure 148/77 H Pulse Oximetry 93 92 Oxygen Delivery Method Oxygen Flow Rate 06/12/23 12:35 06/12/23 12:35 06/12/23 12:40 Temperature Pulse Rate 166 H Respiratory Rate 28 H Blood Pressure 174/74 H 162/77 H Pulse Oximetry 92 Oxygen Delivery Method Oxygen Flow Rate 06/12/23 12:40 06/12/23 12:45 06/12/23 12:45 Temperature Pulse Rate 164 H 164 H Respiratory Rate 28 H 28 H Blood Pressure 149/88 H Pulse Oximetry 94 93 Oxygen Delivery Method Oxygen Flow Rate 06/12/23 12:50 06/12/23 12:50 06/12/23 12:55 Temperature Pulse Rate 142 H Respiratory Rate 20 Blood Pressure 154/109 H 161/86 H Pulse Oximetry 95 Oxygen Delivery Method Oxygen Flow Rate 06/12/23 12:55 06/12/23 13:00 06/12/23 13:00 Temperature Pulse Rate 119 H 127 H Respiratory Rate 33 H 34 H Blood Pressure 147/70 H Pulse Oximetry 92 93 Oxygen Delivery Method Oxygen Flow Rate 06/12/23 13:05 06/12/23 13:05 06/12/23 13:10 Temperature Pulse Rate 129 H Respiratory Rate 27 H Blood Pressure 140/80 143/78 H Pulse Oximetry 94 Oxygen Delivery Method Oxygen Flow Rate 06/12/23 13:10 06/12/23 13:15 06/12/23 13:15 Temperature Pulse Rate 138 H 135 H Respiratory Rate 32 H 34 H Blood Pressure 152/75 H Pulse Oximetry 92 92 Oxygen Delivery Method Oxygen Flow Rate 06/12/23 13:20 06/12/23 13:20 06/12/23 13:25 Temperature Pulse Rate 126 H Respiratory Rate 33 H Blood Pressure 152/80 H 149/100 H Pulse Oximetry 91 Oxygen Delivery Method Oxygen Flow Rate 06/12/23 13:25 06/12/23 13:30 06/12/23 13:30 Temperature 98.8 F Pulse Rate 121 H 125 H Respiratory Rate 31 H 30 H Blood Pressure 119/75 Pulse Oximetry 93 94 Oxygen Delivery Method Room Air Oxygen Flow Rate 06/12/23 13:35 06/12/23 13:35 06/12/23 13:40 Temperature Pulse Rate 122 H Respiratory Rate 32 H Blood Pressure 138/78 144/86 H Pulse Oximetry 91 Oxygen Delivery Method Oxygen Flow Rate 06/12/23 13:40 06/12/23 13:45 06/12/23 13:45 Temperature Pulse Rate 116 H 124 H Respiratory Rate 30 H 31 H Blood Pressure 144/86 H Pulse Oximetry 93 94 Oxygen Delivery Method Oxygen Flow Rate 06/12/23 13:50 06/12/23 13:50 06/12/23 13:55 Temperature Pulse Rate 128 H Respiratory Rate 30 H Blood Pressure 145/85 H 157/90 H Pulse Oximetry 93 Oxygen Delivery Method Room Air Oxygen Flow Rate 06/12/23 13:55 06/12/23 14:00 06/12/23 14:00 Temperature Pulse Rate 131 H 129 H Respiratory Rate 32 H 26 H Blood Pressure 146/74 H Pulse Oximetry 93 89 L Oxygen Delivery Method Oxygen Flow Rate 06/12/23 14:05 06/12/23 14:05 06/12/23 14:10 Temperature Pulse Rate 122 H Respiratory Rate 22 Blood Pressure 138/75 147/88 H Pulse Oximetry Oxygen Delivery Method Oxygen Flow Rate 06/12/23 14:10 06/12/23 14:15 06/12/23 14:15 Temperature Pulse Rate 127 H 124 H Respiratory Rate 31 H 31 H Blood Pressure 117/84 Pulse Oximetry 91 Oxygen Delivery Method Nasal Cannula Oxygen Flow Rate 2 06/12/23 14:30 06/12/23 15:43 06/12/23 16:00 Temperature 98.7 F 99.0 F Pulse Rate 136 H 126 H 138 H Respiratory Rate 23 27 H 29 H Blood Pressure 111/69 118/78 Pulse Oximetry 98 97 Oxygen Delivery Method Oxygen Flow Rate 2 2 06/12/23 16:14 06/12/23 14:20 06/12/23 14:25 Temperature 98.6 F Pulse Rate 125 H Respiratory Rate 26 H Blood Pressure 127/102 H 111/69 119/79 Pulse Oximetry 89 L Oxygen Delivery Method Oxygen Flow Rate 2 06/12/23 14:25 06/12/23 14:30 06/12/23 14:30 Temperature Pulse Rate 134 H 134 H Respiratory Rate 34 H 30 H Blood Pressure 128/55 L Pulse Oximetry 94 91 Oxygen Delivery Method Oxygen Flow Rate 06/12/23 16:57 06/12/23 17:00 06/12/23 18:00 Temperature 99.0 F 98.6 F Pulse Rate 146 H 137 H Respiratory Rate 24 32 H Blood Pressure 160/81 H 174/76 H Pulse Oximetry 92 91 Oxygen Delivery Method Nasal Cannula Oxygen Flow Rate 2 2 Oxygen Delivery Method Nasal Cannula Oxygen Flow Rate 2 Narrative Exam Narrative: GEN: Red faced, intoxicated male who is tremulous and sweaty, obese HEENT: dry mucous membranes, PERRL NECK: trachea midline, no JVD CV: tachycardic, irregularly irregular, no murmurs PULM: clear bilaterally ABD: soft, nontender, nondistended, no organomegaly EXT: warm and well perfused with no edema NEURO: somnolent, no focal deficits Objective Labs 06/12/23 12:22 06/12/23 12:22 Labs: Laboratory Results - last 24 hr 06/11/23 06/11/23 06/11/23 23:54 23:54 23:54 WBC 5.3 RBC 4.05 L Hgb 14.1 Hct 40.7 L MCV 100.5 H MCH 34.8 H MCHC 34.7 RDW 14.4 Plt Count 36 L* Neut % (Auto) 72.3 Lymph % (Auto) 17.3 L [place] % (Auto) 8.1 Eos % (Auto) 1.8 L Baso % (Auto) 0.5 Neut # (Auto) 3800 Lymph # (Auto) 900 L [place] # (Auto) 400 Eos # (Auto) 100 Baso # (Auto) 0 Platelet Estimate Decreased on smear RBC Morphology See below Anisocytosis 2+ H Macrocytosis 1+ H PT 16.9 H INR 1.5 H APTT Sodium Potassium Chloride Carbon Dioxide BUN Creatinine Estimated GFR BUN/Creatinine Ratio Glucose Lactate Calcium Magnesium Total Bilirubin AST ALT Alkaline Phosphatase Total Creatine Kinase Troponin I Total Protein Albumin Globulin Albumin/Globulin Ratio Lipase TSH Urine RBC Urine WBC Ur Squamous Epith Cells Amorphous Sediment Urine Bacteria Ur Culture Indicated? Nasal Screen MRSA (PCR) Salicylates < 1.0 U Opiates 300ng/mL cut Ur Oxycodone Screen Urine Methadone Screen Acetaminophen < 10 Ur Barbiturates Screen U Tricyclic Antidepress Ur Phencyclidine Scrn Ur Amphetamines Screen U Methamphetamines Scrn Ur MDMA Scrn (Ecstasy) U Benzodiazepines Scrn Urine Cocaine Screen U Marijuana (THC) Screen Ethyl Alcohol 410 H* 06/11/23 06/12/23 06/12/23 23:54 03:39 03:39 WBC RBC Hgb Hct MCV MCH MCHC RDW Plt Count Neut % (Auto) Lymph % (Auto) [place] % (Auto) Eos % (Auto) Baso % (Auto) Neut # (Auto) Lymph # (Auto) [place] # (Auto) Eos # (Auto) Baso # (Auto) Platelet Estimate RBC Morphology Anisocytosis Macrocytosis PT INR APTT Sodium 132 L Potassium 3.7 Chloride 89 L Carbon Dioxide 28 BUN 6 L Creatinine 0.54 L Estimated GFR > 60 BUN/Creatinine Ratio 11.1 Glucose 126 H Lactate Calcium 7.9 L Magnesium 1.9 Total Bilirubin 4.8 H AST 431 H ALT 164 H Alkaline Phosphatase 165 H Total Creatine Kinase Troponin I Total Protein 8.2 Albumin 3.8 Globulin 4.4 H Albumin/Globulin Ratio 0.9 L Lipase 554 H TSH Urine RBC None seen Urine WBC None seen Ur Squamous Epith Cells 0-1 /hpf Amorphous Sediment 4+ Urine Bacteria None seen Ur Culture Indicated? Specimen cultured Nasal Screen MRSA (PCR) Salicylates U Opiates 300ng/mL cut Negative Ur Oxycodone Screen Negative Urine Methadone Screen Negative Acetaminophen Ur Barbiturates Screen Negative U Tricyclic Antidepress Negative Ur Phencyclidine Scrn Negative Ur Amphetamines Screen Negative U Methamphetamines Scrn Negative Ur MDMA Scrn (Ecstasy) Negative U Benzodiazepines Scrn Negative Urine Cocaine Screen Negative U Marijuana (THC) Screen Negative Ethyl Alcohol 06/12/23 06/12/23 06/12/23 12:22 12:22 12:22 WBC 6.0 RBC 4.13 L Hgb 14.3 Hct 41.3 MCV 100.0 MCH 34.7 H MCHC 34.7 RDW 14.5 Plt Count 35 L* Neut % (Auto) 77.4 H Lymph % (Auto) 14.1 L [place] % (Auto) 7.2 Eos % (Auto) 0.8 L Baso % (Auto) 0.5 Neut # (Auto) 4600 Lymph # (Auto) 800 L [place] # (Auto) 400 Eos # (Auto) 0 Baso # (Auto) 0 Platelet Estimate Decreased on smear RBC Morphology See below Anisocytosis Macrocytosis 1+ H PT INR APTT Sodium 128 L Potassium 3.1 L Chloride 88 L Carbon Dioxide 23 BUN 5 L Creatinine 0.51 L Estimated GFR > 60 BUN/Creatinine Ratio 9.8 Glucose 107 H Lactate Calcium 7.5 L Magnesium Total Bilirubin 5.6 H AST 374 H ALT 158 H Alkaline Phosphatase 161 H Total Creatine Kinase 514 H Troponin I 0.029 Total Protein 7.7 Albumin 3.6 Globulin 4.1 Albumin/Globulin Ratio 0.9 L Lipase TSH Urine RBC Urine WBC Ur Squamous Epith Cells Amorphous Sediment Urine Bacteria Ur Culture Indicated? Nasal Screen MRSA (PCR) Salicylates U Opiates 300ng/mL cut Ur Oxycodone Screen Urine Methadone Screen Acetaminophen Ur Barbiturates Screen U Tricyclic Antidepress Ur Phencyclidine Scrn Ur Amphetamines Screen U Methamphetamines Scrn Ur MDMA Scrn (Ecstasy) U Benzodiazepines Scrn Urine Cocaine Screen U Marijuana (THC) Screen Ethyl Alcohol 179 H 06/12/23 06/12/23 06/12/23 12:22 12:22 12:22 WBC RBC Hgb Hct MCV MCH MCHC RDW Plt Count Neut % (Auto) Lymph % (Auto) [place] % (Auto) Eos % (Auto) Baso % (Auto) Neut # (Auto) Lymph # (Auto) [place] # (Auto) Eos # (Auto) Baso # (Auto) Platelet Estimate RBC Morphology Anisocytosis Macrocytosis PT INR APTT 36 Sodium Potassium Chloride Carbon Dioxide BUN Creatinine Estimated GFR BUN/Creatinine Ratio Glucose Lactate 5.8 H* Calcium Magnesium Total Bilirubin AST ALT Alkaline Phosphatase Total Creatine Kinase Troponin I Total Protein Albumin Globulin Albumin/Globulin Ratio Lipase TSH 2.77 Urine RBC Urine WBC Ur Squamous Epith Cells Amorphous Sediment Urine Bacteria Ur Culture Indicated? Nasal Screen MRSA (PCR) Salicylates U Opiates 300ng/mL cut Ur Oxycodone Screen Urine Methadone Screen Acetaminophen Ur Barbiturates Screen U Tricyclic Antidepress Ur Phencyclidine Scrn Ur Amphetamines Screen U Methamphetamines Scrn Ur MDMA Scrn (Ecstasy) U Benzodiazepines Scrn Urine Cocaine Screen U Marijuana (THC) Screen Ethyl Alcohol 06/12/23 06/12/23 06/12/23 13:03 14:57 17:10 WBC RBC Hgb Hct MCV MCH MCHC RDW Plt Count Neut % (Auto) Lymph % (Auto) [place] % (Auto) Eos % (Auto) Baso % (Auto) Neut # (Auto) Lymph # (Auto) [place] # (Auto) Eos # (Auto) Baso # (Auto) Platelet Estimate RBC Morphology Anisocytosis Macrocytosis PT 17.6 H INR 1.5 H APTT Sodium Potassium Chloride Carbon Dioxide BUN Creatinine Estimated GFR BUN/Creatinine Ratio Glucose Lactate 4.5 H* Calcium Magnesium Total Bilirubin AST ALT Alkaline Phosphatase Total Creatine Kinase Troponin I Total Protein Albumin Globulin Albumin/Globulin Ratio Lipase TSH Urine RBC Urine WBC Ur Squamous Epith Cells Amorphous Sediment Urine Bacteria Ur Culture Indicated? Nasal Screen MRSA (PCR) Not detected Salicylates U Opiates 300ng/mL cut Ur Oxycodone Screen Urine Methadone Screen Acetaminophen Ur Barbiturates Screen U Tricyclic Antidepress Ur Phencyclidine Scrn Ur Amphetamines Screen U Methamphetamines Scrn Ur MDMA Scrn (Ecstasy) U Benzodiazepines Scrn Urine Cocaine Screen U Marijuana (THC) Screen Ethyl Alcohol Assessment & Plan Assessment & Plan narrative: # severe alcohol intoxication and withdrawal, high risk for delirium tremens -alcohol admission 410, will likely withdraw significantly as he drinks a 5th of liquor daily for at least a year -CIWA with IV Ativan, Precedex drip and p.o. Librium -seizure precautions -thiamine, multivitamin and folate daily -DOSIER OPERATOR consult # severe alcoholic hepatitis -LFTs elevated, bilirubin up to 5.6, INR 1.5 -meld score of 22, Maddrey's discriminant function of 32 -start IV methylprednisolone 32 mg daily for 28 days -daily CMPs, trend INR -CT abdomen showed severe hepatomegaly, fatty infiltration -obtain abdominal ultrasound to assess liver # new onset atrial fibrillation with RVR -heart rate up to 170s in ED, did not respond to Dilt drip -now on esmolol drip per Cardiology -check echo -keep potassium greater than 4 and Mag greater than 2 -chads 2 Vasc of 0 so does not need anticoagulation # thrombocytopenia -platelets 35k, likely alcohol related -avoid heparin and Lovenox -CBC daily # lactic acidosis -lactate 5.8, improved to 4.5 with fluid boluses -continue IVF -trend to normal # hypernatremia -likely hypovolemic -continue IVF # hypokalemia -replete and monitor I spent a total of 35 minutes of critical care time on this patient's care today; this time is exclusive of procedural time. Code status is code. DVT prophylaxis with SCDs. Proxy is father Escobar. I have reviewed home meds and used all available resources to reconcile the home meds. Case discussed with ED physician/APC and patient will be admitted to the hospitalist service for further workup and management. This patient will be admitted as ICU and will require greater than 2 midnights of hospital time to treat severe alcohol withdrawal and alcoholic hepatitis. Quality VTE Deep Vein Thrombosis/Pulmonary Embolism Present on Admission: No
--- NOTE | 2023-06-12 19:56 | P.ICUMDRN_ITS ---
- Date Patient Seen: 06/12/23 :: This patient was seen via real time interactive two-way audiovisual telecommunic ation. Note: Multidisciplinary rounds completed. Patient is awake and following commands. Remains off of precedex. Starting ativan and librium therapy. Lactic acid pending. Will continue IVF resuscitation and trending lactic acid. D/w bedside RN.
[2023-06-12 20:38] LABS: Lactate (Lactic Acid) 4.1 mmol/L (0.7-2.1)
[2023-06-12 21:33] LABS: Reflexed Lactate in 2 Hours Y
[2023-06-12 23:25] LABS: Lactate 2HR (Lactic Acid Rflx) 3.4 mmol/L (0.7-2.1)
[2023-06-13] VITALS (40 sets, daily range): BP systolic 105–192; BP diastolic 58–111; PULSE 60–123; RESP 13–42; TEMP 36.3–37.2; O2SAT 91–98
[2023-06-13] MEDS: LACTATED RINGERS 1,000 ML 100 ML IV ×3 (04:15→14:04)
[2023-06-13 04:48] LABS: INR 1.5 (0.9-1.3); Prothrombin Time 17.5 SECONDS (10.1-12.7)
[2023-06-13 04:49] LABS: Basophils Absolute Auto 100 /uL (0-100); Basophils Percent Auto 1.2 % (0-2); Eosinophils Absolute Auto 100 /uL (0-450); Eosinophils Percent Auto 1.3 % (2-4); Hemoglobin 15.1 g/dL (13.5-17.5); Lymphocytes Absolute Auto 1100 /uL (1100-4500); Mean Corpuscular HGB Conc 34.4 % (30-36); Mean Corpuscular Hemoglobin 34.6 PG (26-34); Mean Corpuscular Volume 100.6 fL (80-100); Monocytes Absolute Auto 500 /uL (0-900); Monocytes Percent Auto 6.8 % (3-14); Neutrophils Absolute Auto 5000 /uL (1500-7000); Neutrophils Percent Auto 74.7 % (50-75); Red Blood Cell Count 4.38 X10^6/uL (4.5-5.9); White Blood Cell Count 6.7 X10^3/uL (4.5-11.0)
[2023-06-13 04:52] LABS: Add Manual Diff / Slide Review SLIDE REVIEW; Lactate (Lactic Acid) 2.4 mmol/L (0.7-2.1); Platelet Count 34 X10^3/uL (150-400)
[2023-06-13 04:53] LABS: Alanine Aminotransferase 182 IU/L (<50); Albumin 3.7 g/dL (3.5-5.0); Albumin Globulin Ratio 0.8 (1.0-2.8); Alkaline Phosphatase 192 U/L (38-126); Aspartate Aminotransferase 456 IU/L (17-59); BUN Creatinine Ratio 8.8 (6-22); Bilirubin Total 8.2 mg/dL (0.2-1.3); Blood Urea Nitrogen 5 mg/dL (9-20); Calcium 8.6 mg/dL (8.4-10.2); Carbon Dioxide 25 mmol/L (22-32); Chloride 91 mmol/L (98-107); Estimated Glomerular Filt Rate > 60 mL/min (>60); Globulin 4.4 g/dL (1.7-4.1); Glucose 91 mg/dL (70-100); HEMOLYSIS < 15 (0-50); Magnesium 1.8 mg/dL (1.6-2.3); Potassium 3.6 mmol/L (3.4-5.1); Sodium 129 mmol/L (137-145); Total Protein 8.1 g/dL (6.3-8.2)
--- NOTE | 2023-06-13 06:25 | DI.ECHO.S_ITS ---
[facility] +---------+ : : [address] : : : : [id number] : : : : Phone: [phone]+ Echocardiogram Report + + :Name: KEILY BOTELLO Study Date: 06/13/2023 Height: 71 in : :[facility] ReadingLocation: Weight: 343 lb : : Gender: Male BSA: 2.7 m2 : :: 1980 Age: 43 yrs BP: 187/107 mmHg: :Reason For Study: Atrial fibrillation : : Performed By: Araceli Zuniga : :Referring: FELICIA COLES A : + + Interpretation Summary The left ventricle is normal in size. The ejection fraction is estimated to be 65-70%. There are no obvious focal wall motion abnormalities noted but poor endocardial definition reduces the sensitivity for the detection of such. Diastolic function could not be accurately assessed due to atrial fibrillation. The right ventricle is not well visualized. The left atrial size is normal. The aortic root is normal size. No obvious valvular heart disease. Procedure: A two-dimensional transthoracic echocardiogram with color flow and Doppler was performed. The study quality was technically difficult. A contrast injection of Definity was performed to improve assessment of LV function. The patient was in sinus tachycardia with heart rates between 133- 115 bpm during the exam. Left Ventricle: The left ventricle is normal in size. There is mild concentric left ventricular hypertrophy. The ejection fraction is estimated to be 65-70%. There are no obvious focal wall motion abnormalities noted but poor endocardial definition reduces the sensitivity for the detection of such. Diastolic function could not be accurately assessed due to atrial fibrillation. Right Ventricle: The right ventricle is not well visualized. Atria: The left atrial size is normal. Right atrial size is normal. There is no Doppler evidence for an atrial septal defect. Mitral Valve: The mitral valve is normal in structure and function. There is trace mitral regurgitation. Aortic Valve: The aortic valve is not well visualized. There is no aortic valve stenosis. No aortic regurgitation is present. Tricuspid Valve: The tricuspid valve is not well visualized, but is grossly normal. There is trace tricuspid regurgitation. Pulmonic Valve: The pulmonic valve is not well visualized. There is no pulmonic valvular regurgitation. Great Vessels: The aortic root is normal size. The dimensions of the ascending aorta are normal. The inferior vena cava was not visualized. Pericardium/ Pleura There is no pericardial effusion. There is no pleural effusion. MMode/2D Measurements & Calculations LVIDd: 4.9 cm LVOT diam: 2.4 cm LVIDs: 3.0 cm Ao root diam: 3.6 cm FS: 38.0 % asc Aorta Diam: 3.2 cm EPSS: 0.77 cm IVSd: 1.1 cm LVPWd: 1.1 cm LV combs. diameter/BSA (cm/m^2): 1.8 LV sys. diameter/BSA (cm/m^2): 1.1 LA A2 area: 18.8 cm2 RA long axis: 4.8 cm LA A4 area: 17.5 cm2 RA area: 9.4 cm2 LA length (vol): 5.4 cm RA vol: 15.6 ml LA vol: 52.1 ml RA : 5.9 ml/m2 LA vol index: 19.6 ml/m2 Doppler Measurements & Calculations Ao V2 max: 144.5 cm/sec LVOT Max Terence: 116.6 cm/sec Ao V2 mean: 103.8 cm/sec LV V1 max P.4 mmHg Ao max P.4 mmHg LV V1 VTI: 19.0 cm Ao mean P.7 mmHg KAVITA(I,D): 3.6 cm2 Ao V2 VTI: 23.1 cm KAVITA(V,D): 3.6 cm2 sev ratio: 0.82 KAVITA indexed to BSA (cm^2/m^2): 1.4 MV E max terence: 86.6 cm/sec PA V2 max: 104.6 cm/sec MV A max terence: 89.4 cm/sec PA V2 mean: 66.7 cm/sec MV E/A: 0.97 PA mean P.1 mmHg Med Peak E' Terence: 6.0 cm/sec E/E' med: 14.5 Lat Peak E' Terence: 10.3 cm/sec E/E' lat: 8.4 E/e' average: 11.5 MV dec time: 0.18 sec MVA(VTI): 4.0 cm2 MV V2 mean: 79.5 cm/sec SV(LVOT): 84.1 ml MV mean P.8 mmHg MV V2 VTI: 21.1 cm Reading Physician:08:26 AM
[2023-06-13 06:39] LABS: Reflexed Lactate in 2 Hours Y
[2023-06-13 07:06] LABS: Macrocytosis 1+; Platelet Estimate Decreased on smear
[2023-06-13 07:31] LABS: Hemoglobin A1C% w Est Avg Glu 5.5 % (4.0-6.0)
[2023-06-13] MEDS: PANTOPRAZOLE 40 MG VIAL IV (07:38)
[2023-06-13] MEDS: chlordiazePOXIDE 25 MG CAPSULE 50 MG PO ×2 (08:13→17:26)
[2023-06-13] MEDS: THIAMINE 100 MG TABLET PO (08:20)
[2023-06-13] MEDS: FOLIC ACID 1 MG TABLET PO (08:21)
[2023-06-13] MEDS: MULTIVITAMIN 1 TABLET 1 TAB PO (08:21)
[2023-06-13] MEDS: LORazepam 2 MG/ML INJ IV (09:34)
[2023-06-13] MEDS: THIAMINE 500 MG in SODIUM CHLORIDE 0.9% 100 ML 420 MG IV ×3 (09:34→20:16)
--- NOTE | 2023-06-13 09:48 | P.TELICUPN_ITS ---
Subjective Subjective IF CAMERA ACTIVATED, patient seen via real-time interactive audiovisual communication: Camera activated Consent obtained for tele-furnace feeder care: Yes Patient Location: ICU Provider location (State): [place] Other participants/roles: bedside nursing team, Dr. Espinoza Current Medications Current Medications Medications: Home Medications No Known Home Medications 06/12/23 [History Confirmed 06/12/23] Visit Medications (administered) Generic Name Dose Route Start Last Admin Trade Name Freq PRN Reason Stop Dose Admin Folic Acid 1 mg 06/13/23 09:00 06/13/23 08:21 Folic Acid 1 Mg Tablet PO 1 mg DAILY YAIR Administration dexmedeTOMIDine in 0.9 % NaCL 400 mcg in 100 mls @ 7.8 mls/hr 06/12/23 14:45 06/12/23 16:18 Precedex IV Not Given TITRATE YAIR Protocol 0.2 MCG/KG/HR Lactated Ringer's 1,000 mls @ 100 mls/hr 06/12/23 17:00 06/13/23 04:15 Lactated Ringers IV 100 mls/hr CONT YAIR Administration Thiamine HCl 500 mg/ Sodium 105 mls @ 420 mls/hr 06/13/23 09:00 06/13/23 09:34 Chloride IV 420 mls/hr TID YAIR Administration Lorazepam 0 mg 06/12/23 10:15 06/12/23 23:42 Lorazepam 2 Mg/Ml Inj IV 1 mg CIWAPRN PRN Administration Alcohol Withdrawal Protocol Multivitamins 1 tab 06/13/23 09:00 06/13/23 08:21 Multivitamin 1 Tablet PO 1 tab DAILY YAIR Administration Ondansetron HCl 4 mg 06/12/23 10:15 06/12/23 10:31 Ondansetron 4 Mg/2 Ml Inj IV 4 mg Q6HR PRN Administration Nausea And Vomiting Pantoprazole Sodium 40 mg 06/13/23 07:00 06/13/23 07:38 Pantoprazole 40 Mg Vial IV 40 mg 0700 YAIR Administration Objective Labs 06/13/23 04:15 06/13/23 04:15 Labs: Laboratory Results - last 24 hr 06/12/23 06/12/23 06/12/23 04:15 12:22 12:22 WBC RBC Hgb Hct MCV MCH MCHC RDW Plt Count Neut % (Auto) Lymph % (Auto) [place] % (Auto) Eos % (Auto) Baso % (Auto) Neut # (Auto) Lymph # (Auto) [place] # (Auto) Eos # (Auto) Baso # (Auto) Platelet Estimate RBC Morphology Macrocytosis PT INR APTT Sodium 128 L Potassium 3.1 L Chloride 88 L Carbon Dioxide 23 BUN 5 L Creatinine 0.51 L Estimated GFR > 60 BUN/Creatinine Ratio 9.8 Glucose 107 H Hemoglobin A1c 5.5 Lactate Calcium 7.5 L Magnesium Total Bilirubin 5.6 H AST 374 H ALT 158 H Alkaline Phosphatase 161 H Total Creatine Kinase 514 H Troponin I 0.029 Total Protein 7.7 Albumin 3.6 Globulin 4.1 Albumin/Globulin Ratio 0.9 L TSH Nasal Screen MRSA (PCR) Ethyl Alcohol 179 H 06/12/23 06/12/23 06/12/23 12:22 12:22 12:22 WBC 6.0 RBC 4.13 L Hgb 14.3 Hct 41.3 MCV 100.0 MCH 34.7 H MCHC 34.7 RDW 14.5 Plt Count 35 L* Neut % (Auto) 77.4 H Lymph % (Auto) 14.1 L [place] % (Auto) 7.2 Eos % (Auto) 0.8 L Baso % (Auto) 0.5 Neut # (Auto) 4600 Lymph # (Auto) 800 L [place] # (Auto) 400 Eos # (Auto) 0 Baso # (Auto) 0 Platelet Estimate Decreased on smear RBC Morphology See below Macrocytosis 1+ H PT INR APTT 36 Sodium Potassium Chloride Carbon Dioxide BUN Creatinine Estimated GFR BUN/Creatinine Ratio Glucose Hemoglobin A1c Lactate 5.8 H* Calcium Magnesium Total Bilirubin AST ALT Alkaline Phosphatase Total Creatine Kinase Troponin I Total Protein Albumin Globulin Albumin/Globulin Ratio TSH Nasal Screen MRSA (PCR) Ethyl Alcohol 06/12/23 06/12/23 06/12/23 12:22 13:03 14:57 WBC RBC Hgb Hct MCV MCH MCHC RDW Plt Count Neut % (Auto) Lymph % (Auto) [place] % (Auto) Eos % (Auto) Baso % (Auto) Neut # (Auto) Lymph # (Auto) [place] # (Auto) Eos # (Auto) Baso # (Auto) Platelet Estimate RBC Morphology Macrocytosis PT 17.6 H INR 1.5 H APTT Sodium Potassium Chloride Carbon Dioxide BUN Creatinine Estimated GFR BUN/Creatinine Ratio Glucose Hemoglobin A1c Lactate Calcium Magnesium Total Bilirubin AST ALT Alkaline Phosphatase Total Creatine Kinase Troponin I Total Protein Albumin Globulin Albumin/Globulin Ratio TSH 2.77 Nasal Screen MRSA (PCR) Not detected Ethyl Alcohol 06/12/23 06/12/23 06/12/23 17:10 19:30 23:10 WBC RBC Hgb Hct MCV MCH MCHC RDW Plt Count Neut % (Auto) Lymph % (Auto) [place] % (Auto) Eos % (Auto) Baso % (Auto) Neut # (Auto) Lymph # (Auto) [place] # (Auto) Eos # (Auto) Baso # (Auto) Platelet Estimate RBC Morphology Macrocytosis PT INR APTT Sodium Potassium Chloride Carbon Dioxide BUN Creatinine Estimated GFR BUN/Creatinine Ratio Glucose Hemoglobin A1c Lactate 4.5 H* 4.1 H* 3.4 H Calcium Magnesium Total Bilirubin AST ALT Alkaline Phosphatase Total Creatine Kinase Troponin I Total Protein Albumin Globulin Albumin/Globulin Ratio TSH Nasal Screen MRSA (PCR) Ethyl Alcohol 06/13/23 06/13/23 06/13/23 04:15 04:15 04:15 WBC 6.7 RBC 4.38 L Hgb 15.1 Hct 44.0 MCV 100.6 H MCH 34.6 H MCHC 34.4 RDW 15.0 H Plt Count 34 L* Neut % (Auto) 74.7 Lymph % (Auto) 16.0 L [place] % (Auto) 6.8 Eos % (Auto) 1.3 L Baso % (Auto) 1.2 Neut # (Auto) 5000 Lymph # (Auto) 1100 [place] # (Auto) 500 Eos # (Auto) 100 Baso # (Auto) 100 Platelet Estimate Decreased on smear RBC Morphology See below Macrocytosis 1+ H PT 17.5 H INR 1.5 H APTT Sodium 129 L Potassium 3.6 Chloride 91 L Carbon Dioxide 25 BUN 5 L Creatinine 0.57 L Estimated GFR > 60 BUN/Creatinine Ratio 8.8 Glucose 91 Hemoglobin A1c Lactate Calcium 8.6 Magnesium 1.8 Total Bilirubin 8.2 H AST 456 H ALT 182 H Alkaline Phosphatase 192 H Total Creatine Kinase Troponin I Total Protein 8.1 Albumin 3.7 Globulin 4.4 H Albumin/Globulin Ratio 0.8 L TSH Nasal Screen MRSA (PCR) Ethyl Alcohol 06/13/23 04:15 WBC RBC Hgb Hct MCV MCH MCHC RDW Plt Count Neut % (Auto) Lymph % (Auto) [place] % (Auto) Eos % (Auto) Baso % (Auto) Neut # (Auto) Lymph # (Auto) [place] # (Auto) Eos # (Auto) Baso # (Auto) Platelet Estimate RBC Morphology Macrocytosis PT INR APTT Sodium Potassium Chloride Carbon Dioxide BUN Creatinine Estimated GFR BUN/Creatinine Ratio Glucose Hemoglobin A1c Lactate 2.4 H Calcium Magnesium Total Bilirubin AST ALT Alkaline Phosphatase Total Creatine Kinase Troponin I Total Protein Albumin Globulin Albumin/Globulin Ratio TSH Nasal Screen MRSA (PCR) Ethyl Alcohol Exam Vital Signs (past 8 hours): - 06/13/23 02:00 06/13/23 02:00 06/13/23 02:02 Temperature Pulse Rate 112 H 118 H Respiratory Rate 32 H 27 H Blood Pressure 177/110 H Pulse Oximetry 92 92 Oxygen Delivery Method Oxygen Flow Rate 06/13/23 02:02 06/13/23 02:08 06/13/23 02:08 Temperature Pulse Rate 115 H Respiratory Rate 33 H Blood Pressure 190/104 H 169/83 H Pulse Oximetry 95 Oxygen Delivery Method Oxygen Flow Rate 2 06/13/23 03:00 06/13/23 03:00 06/13/23 04:00 Temperature Pulse Rate 117 H Respiratory Rate 32 H Blood Pressure 176/89 H 187/105 H Pulse Oximetry 95 Oxygen Delivery Method Oxygen Flow Rate 2 06/13/23 04:00 06/13/23 04:06 06/13/23 04:06 Temperature 97.4 F L Pulse Rate 119 H 123 H Respiratory Rate 33 H 42 H Blood Pressure 192/111 H Pulse Oximetry 96 95 Oxygen Delivery Method Oxygen Flow Rate 2 06/13/23 04:37 06/13/23 04:37 06/13/23 05:00 Temperature Pulse Rate 120 H Respiratory Rate 35 H Blood Pressure 162/106 H 177/94 H Pulse Oximetry 91 Oxygen Delivery Method Oxygen Flow Rate 06/13/23 05:00 06/13/23 06:00 06/13/23 06:00 Temperature Pulse Rate 116 H 114 H Respiratory Rate 31 H 23 Blood Pressure 187/107 H Pulse Oximetry 93 97 Oxygen Delivery Method Oxygen Flow Rate 2 2 06/13/23 07:00 06/13/23 07:01 06/13/23 07:01 Temperature Pulse Rate 118 H 116 H Respiratory Rate 13 26 H Blood Pressure 122/59 L Pulse Oximetry 98 95 Oxygen Delivery Method Oxygen Flow Rate 06/13/23 07:00 06/13/23 08:00 06/13/23 08:00 Temperature 99.0 F Pulse Rate Respiratory Rate Blood Pressure 175/90 H Pulse Oximetry Oxygen Delivery Method Room Air Oxygen Flow Rate 06/13/23 08:00 Temperature Pulse Rate 116 H Respiratory Rate 28 H Blood Pressure Pulse Oximetry 94 Oxygen Delivery Method Oxygen Flow Rate Oxygen Delivery Method Room Air Oxygen Flow Rate 2 Quality TeleICU VTE Deep Vein Thrombosis/Pulmonary Embolism Present on Admission: No Assessment & Plan Assessment & Plan narrative: patient seen case discussed with bedside team chart/labs/imaging reviewed 43 year old male with PMhx of admitted to icu with etoh intoxication etoh withdrwal alcoholic hepatitis thrombocytopenia afib no acute events overnight received 2 prn ativan doses bp increased this am having some hallucinations currently afebrile, HD stable sbp 180s asa/alt 456/182 platelets 35 lactate 2.4 plan -neurochecks/siezure precautions -thiamine/folate -ciwa protocol -start on precedex -can increase librium to 75mg, can increase if ativan doses are more frequent -keep sat above 92% -incentive spirometer -check ekg -afib controlled, no sinus, check echo, hold ac for now -steroids held by primary team -ivf -montior ins/outs -replace lytes prn -keep glucose 140-180s -gi/dvt ppx -please call eICU if condition changes -discussed with Dr. Espinoza Time Spent With Patient Time with patient: 30 to 49 minutes with 50% spent counseling/coordinating care
[2023-06-13] MEDS: dexmedeTOMIDine in 0.9 % NaCL 400 MCG/100 ML PLAST..BAG 7.8 MCG IV ×2 (10:13→16:45)
--- NOTE | 2023-06-13 10:29 | DIET.CONS2 ---
Dietary Inpatient Consultation Note Admission Date: 06/12/2023 14:06 RD consulted for heavy etoh use and poor PO intake with MNA 8. Pt inappropriate for dietary education at this time, on clear liquid diet with CIWA 20s. RD to follow through withdrawls as pt at high risk for DTs. Diet: 06/12/23 Dinner Clear Liquid Diet Diet Modifications: Nutrition Percent Meal Consumed 25% 06/12/23 14:20 Electronically Signed by: Radha Giordano 06/13/23 10:29 Clinical Dietitian [address] [address]
[2023-06-13] MEDS: POTASSIUM CHLORIDE 20 MEQ TAB 40 MEQ PO (10:42)
[2023-06-13] MEDS: MAGNESIUM CHLORIDE 64 MG TABLET 128 MG PO (10:42)
--- NOTE | 2023-06-13 11:14 | CM.DANOTE ---
Initial DCP Assessment Note Pt is a 43 yo male, resident of [place], arrives with a BAL of 410 via EMS apparently w/SI and seeking detox and treatment. Patient had reported to the ED that he drinks approx a fifth of bourban daily. In addition, notes indicate Patient's father is visiting from out of town, and was attempting to assist patient in weaning off alcohol from home by swapping bourban with vodka (?) According to RN Kirsten, patient has been quite anxious this morning since receiving a call from admitting re his medical insurance. Patient's CIWA was 6 at 0930 this morning This DIRECTOR OF OUTPATIENT SERVICES will hold on initial DCP and BHARTI assessment w/patient until able to participate in bedside conversation PCP: Unknown Payer: [employer] (policy number is pending, patient was just signed up for [employer] by Lisa Haines in admitting) SW consult received. SW team will plan to follow closely and can complete initial DCP and BHARTI assessment when patient can participate GOVIND Hatfield Discharge Planning/Care Management CM Discharge Assessment Start: 06/13/23 11:11 Freq: Status: Active Protocol: Document 06/13/23 11:12 NAIF (Rec: 06/13/23 11:14 NAIF [id number]) Discharge Planning Assessment Assigned Automobile Engine Assembler GOVIND Burrell DPOA/Assigned Designee Name father Cervantes Contact Information [phone] Advance Directives? No History Provided By Medical Record Prior Living Arrangements House Household Members none Type of transporation used prior to Drives own vehicle admit Independent with ADL's Yes Is patient alert and oriented? Yes Comment TBD Discharge Plan Home Transportation Arrangement TBD Additional Comment TBD
[2023-06-13] MEDS: chlordiazePOXIDE 25 MG CAPSULE 75 MG PO (11:44)
--- NOTE | 2023-06-13 13:06 | P.PN_ITS ---
Subjective Subjective Date Patient Seen: 06/13/23 Time Patient Seen: 08:00 Interval history: This morning he feels he is withdrawing. He is anxious, tremulous. He has pressured, slurred speech. He is tachycardic and hypertensive. He thinks multiple people look like his dad. Exam Vital Signs (past 8 hours): - 06/13/23 06:00 06/13/23 06:00 06/13/23 07:00 Temperature Pulse Rate 114 H 118 H Respiratory Rate 23 13 Blood Pressure 187/107 H Pulse Oximetry 97 98 Oxygen Delivery Method Oxygen Flow Rate 2 06/13/23 07:01 06/13/23 07:01 06/13/23 07:00 Temperature Pulse Rate 116 H Respiratory Rate 26 H Blood Pressure 122/59 L Pulse Oximetry 95 Oxygen Delivery Method Room Air Oxygen Flow Rate 06/13/23 08:00 06/13/23 08:00 06/13/23 08:00 Temperature 99.0 F Pulse Rate 116 H Respiratory Rate 28 H Blood Pressure 175/90 H Pulse Oximetry 94 Oxygen Delivery Method Oxygen Flow Rate 06/13/23 09:00 06/13/23 09:31 06/13/23 09:31 Temperature Pulse Rate 123 H 121 H Respiratory Rate 39 H 32 H Blood Pressure 176/110 H Pulse Oximetry 91 92 Oxygen Delivery Method Oxygen Flow Rate 06/13/23 10:00 06/13/23 10:00 06/13/23 10:34 Temperature Pulse Rate 111 H 117 H Respiratory Rate 30 H 24 Blood Pressure 176/75 H 176/75 H Pulse Oximetry 91 Oxygen Delivery Method Oxygen Flow Rate 06/13/23 10:40 06/13/23 10:40 06/13/23 11:00 Temperature Pulse Rate 109 H 110 H Respiratory Rate 25 H 30 H Blood Pressure 189/85 H Pulse Oximetry 95 93 Oxygen Delivery Method Oxygen Flow Rate 06/13/23 11:01 06/13/23 11:01 06/13/23 11:41 Temperature Pulse Rate 106 H Respiratory Rate 33 H Blood Pressure 169/79 H 155/90 H Pulse Oximetry 92 Oxygen Delivery Method Oxygen Flow Rate 06/13/23 11:41 06/13/23 12:00 06/13/23 12:01 Temperature Pulse Rate 94 H 92 H Respiratory Rate 27 H 26 H Blood Pressure 137/75 Pulse Oximetry 97 95 Oxygen Delivery Method Oxygen Flow Rate 06/13/23 12:01 06/13/23 12:00 Temperature 98.3 F Pulse Rate 91 H Respiratory Rate 29 H Blood Pressure Pulse Oximetry 96 Oxygen Delivery Method Oxygen Flow Rate Oxygen Delivery Method Room Air Oxygen Flow Rate 2 Narrative Exam Narrative: GEN: tremulous HEENT: dry mucous membranes, PERRL CV: tachycardic, no murmurs PULM: clear bilaterally ABD: soft, nontender, nondistended, no organomegaly EXT: warm and well perfused with no edema NEURO: pressured speech, slurred Objective Labs 06/13/23 04:15 06/13/23 04:15 Labs: Laboratory Results - last 24 hr 06/12/23 06/12/23 06/12/23 04:15 12:22 12:22 WBC RBC Hgb Hct MCV MCH MCHC RDW Plt Count Neut % (Auto) Lymph % (Auto) [place] % (Auto) Eos % (Auto) Baso % (Auto) Neut # (Auto) Lymph # (Auto) [place] # (Auto) Eos # (Auto) Baso # (Auto) Platelet Estimate RBC Morphology Macrocytosis PT INR APTT Sodium 128 L Potassium 3.1 L Chloride 88 L Carbon Dioxide 23 BUN 5 L Creatinine 0.51 L Estimated GFR > 60 BUN/Creatinine Ratio 9.8 Glucose 107 H Hemoglobin A1c 5.5 Lactate Calcium 7.5 L Magnesium Total Bilirubin 5.6 H AST 374 H ALT 158 H Alkaline Phosphatase 161 H Total Creatine Kinase 514 H Troponin I 0.029 Total Protein 7.7 Albumin 3.6 Globulin 4.1 Albumin/Globulin Ratio 0.9 L TSH Nasal Screen MRSA (PCR) Ethyl Alcohol 179 H 06/12/23 06/12/23 06/12/23 12:22 12:22 12:22 WBC 6.0 RBC 4.13 L Hgb 14.3 Hct 41.3 MCV 100.0 MCH 34.7 H MCHC 34.7 RDW 14.5 Plt Count 35 L* Neut % (Auto) 77.4 H Lymph % (Auto) 14.1 L [place] % (Auto) 7.2 Eos % (Auto) 0.8 L Baso % (Auto) 0.5 Neut # (Auto) 4600 Lymph # (Auto) 800 L [place] # (Auto) 400 Eos # (Auto) 0 Baso # (Auto) 0 Platelet Estimate Decreased on smear RBC Morphology See below Macrocytosis 1+ H PT INR APTT 36 Sodium Potassium Chloride Carbon Dioxide BUN Creatinine Estimated GFR BUN/Creatinine Ratio Glucose Hemoglobin A1c Lactate 5.8 H* Calcium Magnesium Total Bilirubin AST ALT Alkaline Phosphatase Total Creatine Kinase Troponin I Total Protein Albumin Globulin Albumin/Globulin Ratio TSH Nasal Screen MRSA (PCR) Ethyl Alcohol 06/12/23 06/12/23 06/12/23 12:22 13:03 14:57 WBC RBC Hgb Hct MCV MCH MCHC RDW Plt Count Neut % (Auto) Lymph % (Auto) [place] % (Auto) Eos % (Auto) Baso % (Auto) Neut # (Auto) Lymph # (Auto) [place] # (Auto) Eos # (Auto) Baso # (Auto) Platelet Estimate RBC Morphology Macrocytosis PT 17.6 H INR 1.5 H APTT Sodium Potassium Chloride Carbon Dioxide BUN Creatinine Estimated GFR BUN/Creatinine Ratio Glucose Hemoglobin A1c Lactate Calcium Magnesium Total Bilirubin AST ALT Alkaline Phosphatase Total Creatine Kinase Troponin I Total Protein Albumin Globulin Albumin/Globulin Ratio TSH 2.77 Nasal Screen MRSA (PCR) Not detected Ethyl Alcohol 06/12/23 06/12/23 06/12/23 17:10 19:30 23:10 WBC RBC Hgb Hct MCV MCH MCHC RDW Plt Count Neut % (Auto) Lymph % (Auto) [place] % (Auto) Eos % (Auto) Baso % (Auto) Neut # (Auto) Lymph # (Auto) [place] # (Auto) Eos # (Auto) Baso # (Auto) Platelet Estimate RBC Morphology Macrocytosis PT INR APTT Sodium Potassium Chloride Carbon Dioxide BUN Creatinine Estimated GFR BUN/Creatinine Ratio Glucose Hemoglobin A1c Lactate 4.5 H* 4.1 H* 3.4 H Calcium Magnesium Total Bilirubin AST ALT Alkaline Phosphatase Total Creatine Kinase Troponin I Total Protein Albumin Globulin Albumin/Globulin Ratio TSH Nasal Screen MRSA (PCR) Ethyl Alcohol 06/13/23 06/13/23 06/13/23 04:15 04:15 04:15 WBC 6.7 RBC 4.38 L Hgb 15.1 Hct 44.0 MCV 100.6 H MCH 34.6 H MCHC 34.4 RDW 15.0 H Plt Count 34 L* Neut % (Auto) 74.7 Lymph % (Auto) 16.0 L [place] % (Auto) 6.8 Eos % (Auto) 1.3 L Baso % (Auto) 1.2 Neut # (Auto) 5000 Lymph # (Auto) 1100 [place] # (Auto) 500 Eos # (Auto) 100 Baso # (Auto) 100 Platelet Estimate Decreased on smear RBC Morphology See below Macrocytosis 1+ H PT 17.5 H INR 1.5 H APTT Sodium 129 L Potassium 3.6 Chloride 91 L Carbon Dioxide 25 BUN 5 L Creatinine 0.57 L Estimated GFR > 60 BUN/Creatinine Ratio 8.8 Glucose 91 Hemoglobin A1c Lactate Calcium 8.6 Magnesium 1.8 Total Bilirubin 8.2 H AST 456 H ALT 182 H Alkaline Phosphatase 192 H Total Creatine Kinase Troponin I Total Protein 8.1 Albumin 3.7 Globulin 4.4 H Albumin/Globulin Ratio 0.8 L TSH Nasal Screen MRSA (PCR) Ethyl Alcohol 06/13/23 04:15 WBC RBC Hgb Hct MCV MCH MCHC RDW Plt Count Neut % (Auto) Lymph % (Auto) [place] % (Auto) Eos % (Auto) Baso % (Auto) Neut # (Auto) Lymph # (Auto) [place] # (Auto) Eos # (Auto) Baso # (Auto) Platelet Estimate RBC Morphology Macrocytosis PT INR APTT Sodium Potassium Chloride Carbon Dioxide BUN Creatinine Estimated GFR BUN/Creatinine Ratio Glucose Hemoglobin A1c Lactate 2.4 H Calcium Magnesium Total Bilirubin AST ALT Alkaline Phosphatase Total Creatine Kinase Troponin I Total Protein Albumin Globulin Albumin/Globulin Ratio TSH Nasal Screen MRSA (PCR) Ethyl Alcohol [facility] Social History household members: none Smoking Status: Unknown if ever smoked alcohol intake: current Assessment & Plan Assessment & Plan narrative: # severe alcohol intoxication and withdrawal, with hallucinations concern for DTs -alcohol admission 410 -CIWA with IV Ativan, Precedex drip and p.o. Librium -seizure precautions -MVI, folate daily -high dose thiamine 500mg TID for 2 days -FINANCIAL ASSISTANT consult # severe alcoholic hepatitis -LFTs elevated, bilirubin up to 5.6, INR 1.5 -meld score of 22, Maddrey's discriminant function of 32 -CT abdomen showed severe hepatomegaly, fatty infiltration -no abdominal pain for now -given concern for agitation, hold off on steroids for now, may need to have steroids started prior to discharge -daily CMPs, trend INR # new onset atrial fibrillation with RVR -heart rate up to 170s in ED, did not respond to Dilt drip -initially was on esmolol drip, but hen converted to sinus -check echo -keep potassium greater than 4 and Mag greater than 2 -chads 2 Vasc of 0 so does not need anticoagulation # thrombocytopenia -platelets 35k, likely alcohol related -avoid heparin and Lovenox -CBC daily # lactic acidosis -lactate 5.8, improved to 2.4 -continue IVF # hypernatremia -likely hypovolemic -continue IVF # hypokalemia -replete and monitor Quality VTE Deep Vein Thrombosis/Pulmonary Embolism Present on Admission: No
[2023-06-13] MEDS: NYSTATIN POWDER 15GM 1 APPLIC TOP ×2 (13:58→20:15)
--- NOTE | 2023-06-13 21:30 | PM.ICURNDS ---
- Date Patient Seen: 06/13/23 Time Patient Seen: 20:45 :: This patient was seen via real time interactive two-way audiovisual telecommunication. Note: 43 y.o. male w/ EtOH hepatitis/withdrawal syndrome and AFib w/ RVR. On camera evaluation, resting comfortably on Precedex 0.2 mcg/kg/hr. No change to plan; discussed w/ RN.
[2023-06-14] VITALS (32 sets, daily range): BP systolic 96–149; BP diastolic 54–82; PULSE 57–102; RESP 15–54; TEMP 36–36.2; O2SAT 92–100
[2023-06-14] MEDS: chlordiazePOXIDE 25 MG CAPSULE 50 MG PO ×4 (00:08→21:00)
[2023-06-14] MEDS: LACTATED RINGERS 1,000 ML 100 ML IV ×2 (00:16→10:08)
[2023-06-14] MEDS: dexmedeTOMIDine in 0.9 % NaCL 400 MCG/100 ML PLAST..BAG 15.6 MCG IV (04:13)
[2023-06-14 05:13] LABS: Add Manual Diff / Slide Review NO; Basophils Absolute Auto 0 /uL (0-100); Basophils Percent Auto 0.3 % (0-2); Eosinophils Absolute Auto 0 /uL (0-450); Eosinophils Percent Auto 0.4 % (2-4); Hematocrit 41.1 % (41-53); Hemoglobin 14.1 g/dL (13.5-17.5); Lymphocytes Absolute Auto 600 /uL (1100-4500); Lymphocytes Percent Auto 12.9 % (25-40); Mean Corpuscular HGB Conc 34.3 % (30-36); Mean Corpuscular Hemoglobin 34.9 PG (26-34); Mean Corpuscular Volume 101.8 fL (80-100); Monocytes Absolute Auto 300 /uL (0-900); Monocytes Percent Auto 7.4 % (3-14); Neutrophils Absolute Auto 3400 /uL (1500-7000); Red Blood Cell Count 4.03 X10^6/uL (4.5-5.9); Red Cell Distribution Width 14.5 % (11.6-14.8); White Blood Cell Count 4.3 X10^3/uL (4.5-11.0)
[2023-06-14 05:14] LABS: INR 1.9 (0.9-1.3); Prothrombin Time 21.5 SECONDS (10.1-12.7)
[2023-06-14 05:21] LABS: Alanine Aminotransferase 155 IU/L (<50); Albumin 3.1 g/dL (3.5-5.0); Albumin Globulin Ratio 0.8 (1.0-2.8); Alkaline Phosphatase 153 U/L (38-126); Aspartate Aminotransferase 271 IU/L (17-59); BUN Creatinine Ratio 7.3 (6-22); Bilirubin Total 8.5 mg/dL (0.2-1.3); Blood Urea Nitrogen 4 mg/dL (9-20); Calcium 8.9 mg/dL (8.4-10.2); Carbon Dioxide 28 mmol/L (22-32); Chloride 97 mmol/L (98-107); Estimated Glomerular Filt Rate > 60 mL/min (>60); Globulin 3.9 g/dL (1.7-4.1); Glucose 125 mg/dL (70-100); HEMOLYSIS < 15 (0-50); Magnesium 1.9 mg/dL (1.6-2.3); Potassium 3.1 mmol/L (3.4-5.1); Sodium 134 mmol/L (137-145)
[2023-06-14 05:28] LABS: Platelet Count 30 X10^3/uL (150-400)
[2023-06-14 05:43] LABS: Platelet Estimate Decreased on smear
[2023-06-14 05:44] LABS: Macrocytosis 1+
[2023-06-14] MEDS: PANTOPRAZOLE 40 MG VIAL IV (06:21)
[2023-06-14] MEDS: MULTIVITAMIN 1 TABLET 1 TAB PO (08:45)
[2023-06-14] MEDS: THIAMINE 500 MG in SODIUM CHLORIDE 0.9% 100 ML 420 MG IV ×3 (08:45→20:59)
[2023-06-14] MEDS: POTASSIUM CHLORIDE 20 MEQ TAB 40 MEQ PO ×2 (08:45→14:30)
[2023-06-14] MEDS: FOLIC ACID 1 MG TABLET PO (08:45)
--- NOTE | 2023-06-14 09:43 | P.TELICUPN_ITS ---
Subjective Subjective IF CAMERA ACTIVATED, patient seen via real-time interactive audiovisual communication: Camera activated Consent obtained for tele-vessel slag worker care: Yes Patient Location: ICU Provider location (State): [place] Other participants/roles: bedside nursing team Dr. Olga Ordaz history: no acute events overnight Current Medications Current Medications Medications: Home Medications No Known Home Medications 06/12/23 [History Confirmed 06/12/23] Visit Medications (administered) Generic Name Dose Route Start Last Admin Trade Name Freq PRN Reason Stop Dose Admin Chlordiazepoxide HCl 50 mg 06/13/23 18:00 06/14/23 06:21 Chlordiazepoxide 25 Mg Capsule PO 50 mg Q6HR YAIR Administration Folic Acid 1 mg 06/13/23 09:00 06/14/23 08:45 Folic Acid 1 Mg Tablet PO 1 mg DAILY YAIR Administration dexmedeTOMIDine in 0.9 % NaCL 400 mcg in 100 mls @ 7.8 mls/hr 06/12/23 14:45 06/14/23 09:08 Precedex IV 0.3 mcg/kg/hr TITRATE YAIR 11.7 mls/hr Titration Protocol 0.2 MCG/KG/HR Lactated Ringer's 1,000 mls @ 100 mls/hr 06/12/23 17:00 06/14/23 00:16 Lactated Ringers IV 100 mls/hr CONT YAIR Administration Thiamine HCl 500 mg/ Sodium 105 mls @ 420 mls/hr 06/13/23 09:00 06/14/23 08:45 Chloride IV 420 mls/hr TID YAIR Administration Lorazepam 0 mg 06/12/23 10:15 06/12/23 23:42 Lorazepam 2 Mg/Ml Inj IV 1 mg CIWAPRN PRN Administration Alcohol Withdrawal Protocol Multivitamins 1 tab 06/13/23 09:00 06/14/23 08:45 Multivitamin 1 Tablet PO 1 tab DAILY YAIR Administration Nystatin 1 applic 06/13/23 13:30 06/14/23 09:06 Nystatin Powder 15gm TOP Not Given BID YAIR Ondansetron HCl 4 mg 06/12/23 10:15 06/12/23 10:31 Ondansetron 4 Mg/2 Ml Inj IV 4 mg Q6HR PRN Administration Nausea And Vomiting Potassium Chloride 40 meq 06/14/23 08:00 06/14/23 08:45 Potassium Chloride 20 Meq Tab PO 06/14/23 14:01 40 meq Q6H YAIR Administration Objective Labs 06/14/23 04:45 06/14/23 04:45 Labs: Laboratory Results - last 24 hr 06/14/23 06/14/23 06/14/23 04:45 04:45 04:45 WBC 4.3 L RBC 4.03 L Hgb 14.1 Hct 41.1 MCV 101.8 H MCH 34.9 H MCHC 34.3 RDW 14.5 Plt Count 30 L* Neut % (Auto) 79.0 H Lymph % (Auto) 12.9 L [place] % (Auto) 7.4 Eos % (Auto) 0.4 L Baso % (Auto) 0.3 Neut # (Auto) 3400 Lymph # (Auto) 600 L [place] # (Auto) 300 Eos # (Auto) 0 Baso # (Auto) 0 Platelet Estimate Decreased on smear RBC Morphology See below Macrocytosis 1+ H PT 21.5 H INR 1.9 H Sodium 134 L Potassium 3.1 L Chloride 97 L Carbon Dioxide 28 BUN 4 L Creatinine 0.55 L Estimated GFR > 60 BUN/Creatinine Ratio 7.3 Glucose 125 H Calcium 8.9 Magnesium 1.9 Total Bilirubin 8.5 H AST 271 H ALT 155 H Alkaline Phosphatase 153 H Total Protein 7.0 Albumin 3.1 L Globulin 3.9 Albumin/Globulin Ratio 0.8 L Exam Vital Signs (past 8 hours): - 06/14/23 01:59 06/14/23 02:00 06/14/23 02:00 Temperature Pulse Rate 59 L 59 L Respiratory Rate 22 18 Blood Pressure 111/61 Pulse Oximetry 99 98 Oxygen Delivery Method 06/14/23 03:00 06/14/23 03:00 06/14/23 04:00 Temperature Pulse Rate 58 L Respiratory Rate 19 Blood Pressure 111/71 Pulse Oximetry 98 Oxygen Delivery Method Nasal Cannula 06/14/23 04:00 06/14/23 04:00 06/14/23 05:00 Temperature 97.2 F L Pulse Rate 58 L Respiratory Rate 19 Blood Pressure 112/64 Pulse Oximetry 97 Oxygen Delivery Method 06/14/23 05:00 06/14/23 05:00 06/14/23 06:00 Temperature Pulse Rate 68 Respiratory Rate 22 Blood Pressure 116/63 118/57 L Pulse Oximetry 98 Oxygen Delivery Method 06/14/23 06:00 06/14/23 07:00 06/14/23 07:00 Temperature Pulse Rate 59 L 57 L Respiratory Rate 37 H 16 Blood Pressure 117/61 Pulse Oximetry 98 99 Oxygen Delivery Method 06/14/23 08:00 06/14/23 08:00 06/14/23 08:00 Temperature Pulse Rate 58 L Respiratory Rate 17 Blood Pressure 115/60 Pulse Oximetry 99 Oxygen Delivery Method Nasal Cannula 06/14/23 09:00 06/14/23 09:00 Temperature Pulse Rate 64 Respiratory Rate 21 Blood Pressure 106/59 L Pulse Oximetry 98 Oxygen Delivery Method Oxygen Delivery Method Nasal Cannula Oxygen Flow Rate 2 Quality TeleICU VTE Deep Vein Thrombosis/Pulmonary Embolism Present on Admission: No Assessment & Plan Assessment & Plan narrative: patient seen case discussed with bedside team chart/labs/imaging reviewed 43 year old male with PMhx of admitted to icu with etoh intoxication etoh withdrwal alcoholic hepatitis thrombocytopenia afib no acute vents overnight appears over sedated this am easily arousable and follows commands no hallucinations noted no prn ativans recieved currently afebrile, HD stable no acute changes in labs plan -neurochecks/siezure precautions -thiamine/folate -ciwa protocol -suggest to dc precedex -continue librium 50mg q6, changed to q8/12 if remains sedated -keep sat above 92% -incentive spirometer -check ekg -platelts/lfts stable, GI follow as outpt -dc ivf if tolerating diet -monitor ins/outs -replace lytes prn, monitor for refeeding syndrome -keep glucose 140-180s -gi/dvt ppx -please call eICU if condition changes -discussed with Dr. Espinoza total ccm time 45 mins Time Spent With Patient Time with patient: 30 to 49 minutes with 50% spent counseling/coordinating care
--- NOTE | 2023-06-14 10:34 | P.PN_ITS ---
Subjective Subjective Date Patient Seen: 06/14/23 Time Patient Seen: 08:00 Interval history: He is more calm than yesterday. Not hallucinating. A bit sleepy, but arousable. Still on precedex. Exam Vital Signs (past 8 hours): - 06/14/23 03:00 06/14/23 03:00 06/14/23 04:00 Temperature Pulse Rate 58 L Respiratory Rate 19 Blood Pressure 111/71 Pulse Oximetry 98 Oxygen Delivery Method Nasal Cannula 06/14/23 04:00 06/14/23 04:00 06/14/23 05:00 Temperature 97.2 F L Pulse Rate 58 L Respiratory Rate 19 Blood Pressure 112/64 Pulse Oximetry 97 Oxygen Delivery Method 06/14/23 05:00 06/14/23 05:00 06/14/23 06:00 Temperature Pulse Rate 68 Respiratory Rate 22 Blood Pressure 116/63 118/57 L Pulse Oximetry 98 Oxygen Delivery Method 06/14/23 06:00 06/14/23 07:00 06/14/23 07:00 Temperature Pulse Rate 59 L 57 L Respiratory Rate 37 H 16 Blood Pressure 117/61 Pulse Oximetry 98 99 Oxygen Delivery Method 06/14/23 08:00 06/14/23 08:00 06/14/23 08:00 Temperature Pulse Rate 58 L Respiratory Rate 17 Blood Pressure 115/60 Pulse Oximetry 99 Oxygen Delivery Method Nasal Cannula 06/14/23 09:00 06/14/23 09:00 06/14/23 10:00 Temperature Pulse Rate 64 Respiratory Rate 21 Blood Pressure 106/59 L 105/61 Pulse Oximetry 98 Oxygen Delivery Method 06/14/23 10:00 Temperature Pulse Rate 59 L Respiratory Rate 19 Blood Pressure Pulse Oximetry 98 Oxygen Delivery Method Oxygen Delivery Method Nasal Cannula Oxygen Flow Rate 2 Narrative Exam Narrative: GEN: sleepy, arousable HEENT: moist mucous membranes, PERRL CV: regular rate and rhythm, no murmurs PULM: clear bilaterally ABD: soft, nontender, nondistended, no organomegaly EXT: warm and well perfused with no edema Objective Labs 06/14/23 04:45 06/14/23 04:45 Labs: Laboratory Results - last 24 hr 06/14/23 06/14/23 06/14/23 04:45 04:45 04:45 WBC 4.3 L RBC 4.03 L Hgb 14.1 Hct 41.1 MCV 101.8 H MCH 34.9 H MCHC 34.3 RDW 14.5 Plt Count 30 L* Neut % (Auto) 79.0 H Lymph % (Auto) 12.9 L [place] % (Auto) 7.4 Eos % (Auto) 0.4 L Baso % (Auto) 0.3 Neut # (Auto) 3400 Lymph # (Auto) 600 L [place] # (Auto) 300 Eos # (Auto) 0 Baso # (Auto) 0 Platelet Estimate Decreased on smear RBC Morphology See below Macrocytosis 1+ H PT 21.5 H INR 1.9 H Sodium 134 L Potassium 3.1 L Chloride 97 L Carbon Dioxide 28 BUN 4 L Creatinine 0.55 L Estimated GFR > 60 BUN/Creatinine Ratio 7.3 Glucose 125 H Calcium 8.9 Magnesium 1.9 Total Bilirubin 8.5 H AST 271 H ALT 155 H Alkaline Phosphatase 153 H Total Protein 7.0 Albumin 3.1 L Globulin 3.9 Albumin/Globulin Ratio 0.8 L PFSH Social History household members: none Smoking Status: Unknown if ever smoked alcohol intake: current Assessment & Plan Assessment & Plan narrative: # severe alcohol intoxication and withdrawal, with hallucinations concern for DTs -alcohol admission 410 -CIWA with IV Ativan, Precedex drip and p.o. Librium -seizure precautions -MVI, folate daily -high dose thiamine 500mg TID for 2 days -STUDENT MINISTRIES DIRECTOR consult # severe alcoholic hepatitis -LFTs elevated -transaminases are downtrending -bilirubin continues to rise to 8.5 -meld score of 22, Maddrey's discriminant function of 32 on admission, on 06/14 was 49 -CT abdomen showed severe hepatomegaly, fatty infiltration -no abdominal pain for now -given concern for agitation, hold off on steroids for now, but once out of significant alcohol withdrawal consider steroids -daily CMPs, trend INR # new onset atrial fibrillation with RVR -heart rate up to 170s in ED, did not respond to Dilt drip -initially was on esmolol drip, but hen converted to sinus -check echo, which is pending read, will request final read -keep potassium greater than 4 and Mag greater than 2 -chads 2 Vasc of 0 so does not need anticoagulation # thrombocytopenia -platelets 35k, likely alcohol related -avoid heparin and Lovenox -CBC daily # lactic acidosis -likely secondary to hypovolemia and possible alcoholic ketoacidosis -lactate 5.8, improved to 2.4 -stop IVF # hypokalemia -replete and monitor Time Spent With Patient Time with patient: 30 to 49 minutes with 50% spent counseling/coordinating care Quality VTE Deep Vein Thrombosis/Pulmonary Embolism Present on Admission: No
--- NOTE | 2023-06-14 14:06 | CM.SWNOTE ---
INSURANCE OFFICE SUPERVISOR/BHARTI Note Patient awake, alert and eating according to RN Tootie; RN suggests conversation with patient and father Damon today Met w/patient at bedside, patient introduces his Dad as my father and gives this INSURANCE OFFICE SUPERVISOR permission to continue conversation with father present. According to our conversation: Patient is from [place] where his mother and father currently live. Both parents are recovering alcoholics and have had success using the AA program to retain sobriety. Father Damon is suggesting that patient discharge home with him to [place] instead of returning to his rented room at [facility] Patient says he is foggy brained still and having a difficult time answering some of this INSURANCE OFFICE SUPERVISOR's questions. Patient admits outright that he does not feel ready to have this conversation but does seem forthcoming with this INSURANCE OFFICE SUPERVISOR today Patient moved to [place] 2 yrs ago after traveling. Patient had made no contact with his parents throughout this time. Patient has been living on his grandma's inheritance which he and father report is running out, Patient is currently unemployed Patient admits to isolating behavior at [facility] before his father arrived and had been drinking a 6-12 pack of IPA beer daily along with [place] hard lemonade. Patient drank to maintain being drunk, did not drink to black out In an effort to wean himself off of beer over the last week or so, patient states, he began drinking large amounts of vodka daily with mixers. During this time, patient made numerous comments to his father referencing not wanting to wake up and that I wish the universe would just swallow me whole Patient denies SI today, denies plan for how he would attempt suicide. Patient admits he has struggled with anxiety and depression and that drinking alcohol makes everything more beautiful, more fun and makes me happy. Patient denies h/o detox, inpatient or outpatient BHARTI treatment Patient cannot remember the last time he was sober Patient presents as in the pre-contemplative phase of addiction recovery (transtheoretical model) which is typically characterized by a lack of insight into the negative impact of heavy alcohol use with a focus on the positive effects of current alcohol use. Patient is not wholly participating in the conversation today This INSURANCE OFFICE SUPERVISOR explained the process to secure inpatient vs outpatient BHARTI treatment in [facility]. Explained this INSURANCE OFFICE SUPERVISOR could provide BHARTI/MH resources to patient if he wants them and plans to stay in [place] state. Encouraged father to support patient in his sobriety by not providing alcohol upon discharge Discussed reynold cisneros support for patient's family, father appreciative for the conversation Plan: Discharge likely home either back to [facility] vs home to [place] with parents GOVIND Hatfield
[2023-06-14] MEDS: NYSTATIN POWDER 15GM 1 APPLIC TOP (14:31)
--- NOTE | 2023-06-14 16:06 | PC.NURSE ---
Precedex d/c'd at 1000, LR d/c'd pt tolerating general diet, downgraded to floor care status per Dr Espinoza
[2023-06-15] VITALS (21 sets, daily range): BP systolic 115–153; BP diastolic 58–94; PULSE 96–113; RESP 23–39; TEMP 36.6–37; O2SAT 91–98
[2023-06-15 04:53] LABS: INR 1.8 (0.9-1.3); Prothrombin Time 20.4 SECONDS (10.1-12.7)
[2023-06-15 05:01] LABS: Alanine Aminotransferase 158 IU/L (<50); Albumin 3.1 g/dL (3.5-5.0); Albumin Globulin Ratio 0.7 (1.0-2.8); Alkaline Phosphatase 176 U/L (38-126); Aspartate Aminotransferase 260 IU/L (17-59); BUN Creatinine Ratio 6.8 (6-22); Blood Urea Nitrogen 4 mg/dL (9-20); Calcium 9.3 mg/dL (8.4-10.2); Carbon Dioxide 30 mmol/L (22-32); Chloride 100 mmol/L (98-107); Estimated Glomerular Filt Rate > 60 mL/min (>60); Globulin 4.2 g/dL (1.7-4.1); Glucose 92 mg/dL (70-100); HEMOLYSIS < 15 (0-50); Potassium 3.2 mmol/L (3.4-5.1); Sodium 137 mmol/L (137-145); Total Protein 7.3 g/dL (6.3-8.2)
[2023-06-15 05:05] LABS: Basophils Absolute Auto 0 /uL (0-100); Basophils Percent Auto 0.4 % (0-2); Eosinophils Absolute Auto 100 /uL (0-450); Eosinophils Percent Auto 3.6 % (2-4); Hematocrit 42.2 % (41-53); Hemoglobin 14.5 g/dL (13.5-17.5); Lymphocytes Absolute Auto 800 /uL (1100-4500); Mean Corpuscular HGB Conc 34.3 % (30-36); Mean Corpuscular Hemoglobin 35.7 PG (26-34); Mean Corpuscular Volume 104.1 fL (80-100); Monocytes Absolute Auto 500 /uL (0-900); Monocytes Percent Auto 11.8 % (3-14); Neutrophils Absolute Auto 2600 /uL (1500-7000); Neutrophils Percent Auto 65.2 % (50-75); Platelet Count 41 X10^3/uL (150-400); Red Blood Cell Count 4.06 X10^6/uL (4.5-5.9); Red Cell Distribution Width 15.8 % (11.6-14.8)
[2023-06-15 05:08] LABS: Add Manual Diff / Slide Review SLIDE REVIEW
[2023-06-15 05:09] LABS: Macrocytosis 1+; Platelet Estimate Decreased on smear
[2023-06-15] MEDS: PANTOPRAZOLE DR 40 MG TABLET PO (06:49)
[2023-06-15] MEDS: chlordiazePOXIDE 25 MG CAPSULE 50 MG PO (06:49)
[2023-06-15] MEDS: THIAMINE 500 MG in SODIUM CHLORIDE 0.9% 100 ML 420 MG IV (08:37)
[2023-06-15] MEDS: MULTIVITAMIN 1 TABLET 1 TAB PO (08:37)
[2023-06-15] MEDS: FOLIC ACID 1 MG TABLET PO (08:37)
[2023-06-15] MEDS: POTASSIUM CHLORIDE 20 MEQ TAB PO ×3 (08:37→12:32)
[2023-06-15] MEDS: NYSTATIN POWDER 15GM 1 APPLIC TOP ×2 (08:38→20:45)
--- NOTE | 2023-06-15 11:19 | CM.DPNOTE ---
DCP Note Patient discussed in multidisciplinary rounds. According to Dr Glass patient is through his w/d but is globally weak and may benefit fro SNF Explained that ETOH use and Horner/JUSTUS will be barriers to SNF placement Acute inpatient rehab discussed- patient will need an OT eval (not available until Saturday), patient will also need to show that he can endure at least 3 hours of therapies daily in order for this therapy team to recommend and for Acute rehab to consider CM team will plan to follow closely as therapy recs are pending Anticipate patient will need to discharge home w/supportive family, possibly HH if patient remains in town. Hopefully patient will progress towards this goal JW
--- NOTE | 2023-06-15 14:00 | PT.IIE ---
Current Diagnoses Acidosis, unspecified (06/12/23) Physical Therapy Inpatient Evaluation/Re-Eval M1 PT/OT-IP Prior Functional Status Start: 06/15/23 15:08 Freq: NEEDED Status: Active Protocol: Document 06/15/23 14:00 AB (Rec: 06/15/23 15:34 AB [id number]) Medical Review Prior Functional Status Medical History Reviewed Yes Communication able to make needs known Mobility and Gait pt stated that he is independent with all mobilities and ambulation without AD Social History Household Members none Living Arrangements Apartment/Condo Number of Floors (Floors) One Floor Number of Stairs To Enter/Railing? pt lives in a 3rd floor apartment with 13 steps x 4 B rails to get to his floor Home Environment Standard Height Toilet,Tub/ Shower Additional Social History Comment pt has his father at home for now to assist him M2 PT-IP Current Condition Start: 06/15/23 15:08 Freq: NEEDED Status: Active Protocol: Document 06/15/23 14:00 AB (Rec: 06/15/23 15:34 AB [email or web address]) Physical Therapy Current Condition Current Condition Evaluation Date 06/15/23 Treatment Diagnosis ETOH w/d; difficulty in walking Onset Date 06/12/23 M3 PT-IP Subjective Start: 06/15/23 15:08 Freq: NEEDED Status: Active Protocol: Document 06/15/23 14:00 AB (Rec: 06/15/23 15:34 AB [email or web address]) Subjective Physical Therapy Visit Type Type Initial Evaluation Visit Start Time 14:00 Visit Stop Time 14:31 Total Visit Minutes 31 Number of TERRAPIN FISHER Visits 0 Physical Therapy Visit Comments Patient Comments agreeable to do PT Therapy Pain Assessment Pain Present Pain Present Denied Pain M4 PT-IP Mobility and Gait Start: 06/15/23 15:08 Freq: NEEDED Status: Active Protocol: Document 06/15/23 14:00 AB (Rec: 06/15/23 15:34 AB [email or web address]) PT-Bed Mobility Assessment Supine to Sit Supine to Sit Minimal Assistance,Head of Bed Elevated,Bedrails PT-Transfer Assessment Sit to and From Stand Sit to and from Stand Maximum Assistance,1 Person Assistance,2 Person Assistance ,Use of Upper Extremities Equipment Transfer Assistive Device Gait Belt,Front Wheeled Walker Orthotic/Prosthetic Devices or Brace: No Transfers Transfer Destination Chair Transfer Technique Stand Step Pivot Transfer Ability Level of Assist Maximum Assistance,1 Person Assistance,2 Person Assistance ,Use of Upper Extremities Comments Mobility Comments pt supine in bed. Lethargic but able to follow directions. Nurse in room O2 sat 94% completed supine to sit min A for initial sitting. Able to sit SBA after initial assistance and positioning. c /o lightheadedndess. BP: 154/ 78. MI: 113. completed sit to stand x 2 attempts max A x 1-2 and max cues. able to complete step transfer to chair using FWW max A x 1-2. pt agreed to ambulate and completed using FWW ~ 6 ft max A x 1-2 and max cues and with chair follow. presents with unsteady shuffling ataxic gait. pt stated that he is tired. agreed to stay up on the chair . positioned on the chair. call light and table placed within reach. left pt with nurse and NAC in room. Gait Assessment Gait Gait Assistance Required: Maximum Assistance,1 Person Assist,2 Person Assist Distance (Feet) 6 Able to Maintain Weight Bearing Status Yes During Gait Assistive Devices Assistive Device Gait Belt,Front Wheeled Walker Orthotic/Prosthetic Devices or Brace: No Gait Deviations General Gait Pattern Ataxic,Decreased Stride Length ,Decreased Feet Clearance,Step -to Gait Factors Limiting Gait Function Factors Limiting Gait Function Decreased Activity Tolerance, Decreased Strength,Difficulty Following Directions,Limited Range of Motion,Poor Balance, Poor Safety Awareness PT-Balance Assessment Sitting Balance and Reactions Static Sitting Balance Ability Good Dynamic Sitting Balance Ability Fair Standing Balance and Reactions Static Standing Balance Ability Poor Dynamic Standing Balance Ability Poor M5 PT-IP Objective Assessments Start: 06/15/23 15:08 Freq: NEEDED Status: Active Protocol: Document 06/15/23 14:00 AB (Rec: 06/15/23 15:34 AB [email or web address]) Orientation Orientation/Cognition Level of Alertness Lethargic Orientation Name,Situation Safety Awareness Decreased Safety Awareness Gross Range of Motion Lower Extremity ROM Assessment Within Functional Limits Strength Lower Extremity Strength Assessment Within Functional Limits Sensation Assessment Sensation Gross Sensation WNL Muscle Tone Muscle Tone WNL Yes M6 PT-IP Treatment Start: 06/15/23 15:08 Freq: NEEDED Status: Active Protocol: Document 06/15/23 14:00 AB (Rec: 06/15/23 15:35 AB [email or web address]) Physical Therapy Treatment Education Education Provided Safety M7 PT-IP Assessment and Plan Start: 06/15/23 15:08 Freq: NEEDED Status: Active Protocol: Document 06/15/23 14:00 AB (Rec: 06/15/23 15:34 AB [id number]) PT Summary Assessment and Plan Potential Rehabilitation Potential Fair Status of Condition at Evaluation Evolving Summary Impairments Strength,Balance,Coordination, Tone,Cognition,Bed Mobility, Transfers,Gait,Activity Tolerance Assessment Summary Pt is a 43 y/o male and was admitted to the hospital for alcohol withdrawal. pt also has A-fib. per EMR, pt has been consuming daily alcohol for ~ 1 year. pt currently requiring max A x 1-2 for mobility using FWW and is not able to tolerate much activity with c/o fatigue. pt lives alone but currently, his father is at home to assist him if needed. pt will require SNF rehab to improve functional mobility independence. will continue to assess progress. Goals Bed Mobility Goal Independent Transfer Goal Contact Guard Assistance,Front Wheeled Walker Gait Goal Contact Guard Assistance,Front Wheel Walker Gait Distance 150 Other Goals improve transfers and ambulation using least restrictive AD/without AD 300 ft mod I up/down 52 steps B rails SBA Days to Meet Goals 10 Frequency of Treatment Frequency Of Treatment Once a Day Treatment Plan Physical Therapy Treatment Plan Bed Mobility Training,Transfer Training,Gait Training, Therapeutic Exercise,Balance Retraining,Discharge Planning, Hot or Cold Pack,Neuromuscular Re-ed,Coordination Retraining ,Manual Therapy Precautions Other Precautions HR; falls Recommendations To Nursing Amount of Assist Needed 2 Person Assist Discharge Recommendations PT Discharge Recommendations SNF Rehab Equipment Needed for Home Before FWW if pt goes home and not Discharge safe without AD/SPC Transportation Needs at Discharge Private Vehicle,Wheelchair/ Cabulance
--- NOTE | 2023-06-15 15:14 | P.PN_ITS ---
Subjective Subjective Interval history: 43-year-old male with alcohol dependence who was admitted with alcohol in toxication, alcohol withdrawal, AFib with RVR, acute alcoholic hepatitis, thrombocytopenia, hypernatremia, and hypokalemia. Patient initially required intensive care unit level of care and a Precedex drip. He transitioned successfully to oral Librium and his CIWA scores are now 0. Patient reports he continues to feel very weak. He is really anxious to get out of bed. He has therapy orders in place, but therapy would not see him yesterday due to tachycardia with activity. He does get tachycardic to 130 fairly quickly. He denies any chest pain or shortness of breath. He denies any abdomi nal pain. Exam Vital Signs (past 8 hours): - 06/15/23 08:00 06/15/23 08:40 06/15/23 13:25 Temperature 97.8 F Pulse Rate 113 H 108 H 109 H Respiratory Rate 27 H 31 H Blood Pressure 131/94 H Pulse Oximetry 95 95 98 Oxygen Delivery Method Nasal Cannula Oxygen Flow Rate 2 0 Fraction of Inspired Oxygen 28 Fraction of Inspired Oxygen 28 SaO2/FiO2 Ratio 339 Oxygen Delivery Method Nasal Cannula Oxygen Flow Rate 0 Narrative Exam Narrative: GEN: Chronically ill-appearing adult male, moderately jaundice, Alert and oriented x 3, NAD HEENT:NC, Face symmetric CHEST: Respiratory excursions symmetric, coarse but CTAB CV: Mildly tachycardic with regular rhythm, no M/R/G ABD: Soft, obese, NT/ND, BT present in all 4 quadrants, body habitus limits exam EXTR: warm, well perfused, no C/C/E SKIN: warm and dry, no rash NEURO: Alert and oriented x 3, nonfocal Objective Labs 06/15/23 04:12 06/15/23 04:12 Labs: Laboratory Results - last 24 hr 06/12/23 06/15/23 06/15/23 03:39 04:12 04:12 WBC RBC Hgb Hct MCV MCH MCHC RDW Plt Count Neut % (Auto) Lymph % (Auto) [place] % (Auto) Eos % (Auto) Baso % (Auto) Neut # (Auto) Lymph # (Auto) [place] # (Auto) Eos # (Auto) Baso # (Auto) Platelet Estimate RBC Morphology Macrocytosis PT 20.4 H INR 1.8 H Sodium 137 Potassium 3.2 L Chloride 100 Carbon Dioxide 30 BUN 4 L Creatinine 0.59 L Estimated GFR > 60 BUN/Creatinine Ratio 6.8 Glucose 92 Calcium 9.3 Magnesium 2.0 Total Bilirubin 9.0 H AST 260 H ALT 158 H Alkaline Phosphatase 176 H Total Protein 7.3 Albumin 3.1 L Globulin 4.2 H Albumin/Globulin Ratio 0.7 L Urine RBC None seen Urine WBC None seen Ur Squamous Epith Cells 0-1 /hpf Amorphous Sediment 4+ Urine Bacteria None seen Ur Culture Indicated? Specimen cultured 06/15/23 04:12 WBC 4.0 L RBC 4.06 L Hgb 14.5 Hct 42.2 MCV 104.1 H MCH 35.7 H MCHC 34.3 RDW 15.8 H Plt Count 41 L Neut % (Auto) 65.2 Lymph % (Auto) 19.0 L [place] % (Auto) 11.8 Eos % (Auto) 3.6 Baso % (Auto) 0.4 Neut # (Auto) 2600 Lymph # (Auto) 800 L [place] # (Auto) 500 Eos # (Auto) 100 Baso # (Auto) 0 Platelet Estimate Decreased on smear RBC Morphology See below Macrocytosis 1+ H PT INR Sodium Potassium Chloride Carbon Dioxide BUN Creatinine Estimated GFR BUN/Creatinine Ratio Glucose Calcium Magnesium Total Bilirubin AST ALT Alkaline Phosphatase Total Protein Albumin Globulin Albumin/Globulin Ratio Urine RBC Urine WBC Ur Squamous Epith Cells Amorphous Sediment Urine Bacteria Ur Culture Indicated? [facility] Social History household members: none Smoking Status: Unknown if ever smoked alcohol intake: current Assessment & Plan Assessment & Plan narrative: 1. Alcohol dependence, complicated by intoxication and severe withdrawal On admission, his alcohol level was 0.41. He initially required treatment with a Precedex infusion. He is now been on oral Librium. No seizures. Continues on multivitamin and folate. He has been on high-dose thiamine which will now be transitioned to regular dosing. He is showing ongoing improvement overall. 2. Alcohol-induced hepatitis LFTs are improving with AST down, ALT is stable at 158, alkaline phosphatase stable at 176. INR is down. Platelets have improved from 30-41. Bilirubin appears to be peaking as it increased from 8.5-9 today. Continue monitoring his LFTs. Will defer steroid treatment for now given his overall improvement and risk for ongoing delirium. 3. Paroxysmal AFib with RVR Resolved. He does have sinus tachycardia now. Echocardiogram revealed no acute findings. He did initially require a diltiazem drip, followed by an esmolol drip which have since been discontinued. Chads 2 Vasc score was 0, so antic oagulation is not indicated. 4. Thrombocytopenia Platelets are improving overall. Likely secondary to alcohol induced hepatitis. Will monitor closely. 5. 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 Hypokalemia Potassium improving up. Will continue potassium replacement. Magnesium level is stable at 2.0. Code status Full Prophylaxis Chemical prophylaxis contraindicated in the setting of thrombocytopenia Disposition Patient is quite weak. I am told he is improving each day. Wait further recommendations from PT and OT. Goal for the day will be to get up to a chair. Quality VTE Deep Vein Thrombosis/Pulmonary Embolism Present on Admission: No
[2023-06-16] VITALS (27 sets, daily range): BP systolic 134–161; BP diastolic 74–95; PULSE 97–121; RESP 17–36; TEMP 36.1–36.8; O2SAT 92–97
[2023-06-16 05:07] LABS: Prothrombin Time 22.7 SECONDS (10.1-12.7)
[2023-06-16 05:08] LABS: Basophils Absolute Auto 0 /uL (0-100); Basophils Percent Auto 0.4 % (0-2); Eosinophils Absolute Auto 100 /uL (0-450); Hematocrit 41.2 % (41-53); Hemoglobin 14.2 g/dL (13.5-17.5); Lymphocytes Absolute Auto 900 /uL (1100-4500); Lymphocytes Percent Auto 21.9 % (25-40); Mean Corpuscular HGB Conc 34.5 % (30-36); Mean Corpuscular Hemoglobin 35.5 PG (26-34); Mean Corpuscular Volume 103.1 fL (80-100); Monocytes Absolute Auto 600 /uL (0-900); Monocytes Percent Auto 14.1 % (3-14); Neutrophils Absolute Auto 2400 /uL (1500-7000); Neutrophils Percent Auto 60.6 % (50-75); Platelet Count 48 X10^3/uL (150-400)
[2023-06-16 05:10] LABS: Add Manual Diff / Slide Review SLIDE REVIEW
[2023-06-16 05:38] LABS: Macrocytosis 1+; Platelet Estimate Decreased on smear
[2023-06-16 05:44] LABS: Alanine Aminotransferase 155 IU/L (<50); Albumin 3.2 g/dL (3.5-5.0); Albumin Globulin Ratio 0.8 (1.0-2.8); Alkaline Phosphatase 181 U/L (38-126); Aspartate Aminotransferase 227 IU/L (17-59); BUN Creatinine Ratio 5.8 (6-22); Bilirubin Total 9.3 mg/dL (0.2-1.3); Blood Urea Nitrogen 3 mg/dL (9-20); Calcium 9.5 mg/dL (8.4-10.2); Carbon Dioxide 31 mmol/L (22-32); Chloride 100 mmol/L (98-107); Estimated Glomerular Filt Rate > 60 mL/min (>60); Globulin 4.1 g/dL (1.7-4.1); Glucose 90 mg/dL (70-100); HEMOLYSIS < 15 (0-50); Potassium 3.4 mmol/L (3.4-5.1); Sodium 136 mmol/L (137-145); Total Protein 7.3 g/dL (6.3-8.2)
[2023-06-16] MEDS: PANTOPRAZOLE DR 40 MG TABLET PO (06:38)
[2023-06-16] MEDS: MULTIVITAMIN 1 TABLET 1 TAB PO (08:23)
[2023-06-16] MEDS: FOLIC ACID 1 MG TABLET PO (08:23)
[2023-06-16] MEDS: POTASSIUM CHLORIDE 20 MEQ TAB 40 MEQ PO (08:23)
[2023-06-16] MEDS: THIAMINE 100 MG TABLET PO (08:23)
[2023-06-16] MEDS: NYSTATIN POWDER 15GM 1 APPLIC TOP ×2 (08:24→21:50)
[2023-06-16 08:47] LABS: Ammonia (NH3) 87 umol/L (9-30)
[2023-06-16] MEDS: LACTULOSE 20 GM/30 ML SOLUTION PO ×3 (09:54→21:48)
--- NOTE | 2023-06-16 10:08 | PM.PN.1 ---
Subjective Subjective Interval history: 43-year-old male with alcohol dependence who was admitted with alcohol intoxication, alcohol withdrawal, paroxysmal AFib with RVR, acute alcoholic hepatitis, thrombocytopenia, hypernatremia, and hypokalemia. Patient initially required a Precedex drip and ICU level of care. He successfully transitioned to oral Librium. CIWA scores were 0 yesterday. Due to some somnolence, Librium was discontinued yesterday. And is presently sitting up drinking coffee. He is somewhat slow to respond to questions but does answer them appropriately. He denies any abdominal pain. No shortness of breath. States he slept most of the day yesterday due to being ?bored?. He states PT did have him up in a chair for 1 hour and he asked to be moved back to bed. He states staff made him stay in the chair for an additional hour which made him on happy. He would prefer to sit up at bedside instead. Exam Vital Signs (past 8 hours): - 06/16/23 04:32 06/16/23 03:00 06/16/23 04:00 Temperature 98.3 F Pulse Rate 101 H 100 H 100 H Respiratory Rate 20 29 H 30 H Blood Pressure 139/74 Pulse Oximetry 93 Oxygen Delivery Method 06/16/23 04:24 06/16/23 04:24 06/16/23 05:00 Temperature Pulse Rate 101 H 99 H Respiratory Rate 27 H 17 Blood Pressure 139/74 Pulse Oximetry 92 Oxygen Delivery Method 06/16/23 06:00 06/16/23 07:00 06/16/23 07:26 Temperature Pulse Rate 98 H 106 H Respiratory Rate 34 H 32 H Blood Pressure 134/89 Pulse Oximetry Oxygen Delivery Method 06/16/23 07:26 06/16/23 07:00 06/16/23 08:00 Temperature Pulse Rate 104 H Respiratory Rate 28 H 29 H Blood Pressure Pulse Oximetry 94 Oxygen Delivery Method Room Air Fraction of Inspired Oxygen 28 SaO2/FiO2 Ratio 339 Oxygen Delivery Method Room Air Oxygen Flow Rate 0 Narrative Exam Narrative: GEN:? Chronically ill-appearing adult male, moderately jaundice, Alert and oriented x 3, somewhat slow to respond, NAD HEENT:NC, Face symmetric, moderate scleral icterus CHEST: Respiratory excursions symmetric, coarse but CTAB CV:? Mildly tachycardic with regular rhythm, no M/R/G ABD: Soft, obese, NT/ND, BT present in all 4 quadrants, body habitus limits exam EXTR: warm, well perfused, no C/C/2+ generalized edema, venous stasis changes noted bilaterally SKIN: warm and dry, no rash, jaundice NEURO: Alert and oriented x 3, nonfocal Objective Labs 06/16/23 04:15 06/16/23 04:15 Labs: Laboratory Results - last 24 hr 06/12/23 06/16/23 06/16/23 03:39 04:15 04:15 WBC 4.0 L RBC 4.00 L Hgb 14.2 Hct 41.2 MCV 103.1 H MCH 35.5 H MCHC 34.5 RDW 16.0 H Plt Count 48 L Neut % (Auto) 60.6 Lymph % (Auto) 21.9 L [place] % (Auto) 14.1 H Eos % (Auto) 3.0 Baso % (Auto) 0.4 Neut # (Auto) 2400 Lymph # (Auto) 900 L [place] # (Auto) 600 Eos # (Auto) 100 Baso # (Auto) 0 Platelet Estimate Decreased on smear RBC Morphology See below Macrocytosis 1+ H PT INR Sodium 136 L Potassium 3.4 Chloride 100 Carbon Dioxide 31 BUN 3 L Creatinine 0.52 L Estimated GFR > 60 BUN/Creatinine Ratio 5.8 L Glucose 90 Calcium 9.5 Total Bilirubin 9.3 H AST 227 H ALT 155 H Alkaline Phosphatase 181 H Ammonia Total Protein 7.3 Albumin 3.2 L Globulin 4.1 Albumin/Globulin Ratio 0.8 L Urine RBC None seen Urine WBC None seen Ur Squamous Epith Cells 0-1 /hpf Amorphous Sediment 4+ Urine Bacteria None seen Ur Culture Indicated? Specimen cultured 06/16/23 06/16/23 04:15 08:25 WBC RBC Hgb Hct MCV MCH MCHC RDW Plt Count Neut % (Auto) Lymph % (Auto) [place] % (Auto) Eos % (Auto) Baso % (Auto) Neut # (Auto) Lymph # (Auto) [place] # (Auto) Eos # (Auto) Baso # (Auto) Platelet Estimate RBC Morphology Macrocytosis PT 22.7 H INR 2.0 H Sodium Potassium Chloride Carbon Dioxide BUN Creatinine Estimated GFR BUN/Creatinine Ratio Glucose Calcium Total Bilirubin AST ALT Alkaline Phosphatase Ammonia 87 H Total Protein Albumin Globulin Albumin/Globulin Ratio Urine RBC Urine WBC Ur Squamous Epith Cells Amorphous Sediment Urine Bacteria Ur Culture Indicated? PFSH Social History household members: none Smoking Status: Unknown if ever smoked alcohol intake: current Assessment & Plan Assessment & Plan narrative: 1. Alcohol dependence, complicated by intoxication and severe withdrawal On admission, his alcohol level was 0.41.? He initially required treatment with a Precedex infusion.? He is now been on oral Librium.? No seizures.? Continues on multivitamin and folate.? Transitioned to normal dose thiamine yesterday. Librium was discontinued without significant side effects. 2. Alcohol-induced hepatitis LFTs are continuing to stabilize with AST down from a peak of 456-227 today. ALT remains stable at 155. It peaked at 182. Alkaline phosphatase has also stabilized at 181. INR is up from 1.8-2.0. Bilirubin is mildly increased from 9.0-9.3. Ammonia level is up to 87 today. Will add lactulose t.i.d. today. Continue monitoring CMP. Imaging done June 12 revealed severe hepatomegaly and hepatic steatosis. Splenomegaly was noted. There is a small amount of perihepatic and intra-abdominal free fluid which was felt possibly to be related to portal hypertension. His obesity does make it difficult to ascertain whether he has any ascites. Consider repeating an abdominal ultrasound tomorrow to determine if diuretics would be indicated. 3. Paroxysmal AFib with RVR Resolved.? He does have sinus tachycardia now.? Echocardiogram revealed no acute findings.? He did initially require a diltiazem drip, followed by an esmolol drip which have since been discontinued.? Chads 2 Vasc score was 0, so anticoagulation is not indicated. 4. Thrombocytopenia Platelets are improving overall and are up to 48.? Likely secondary to alcohol induced hepatitis.? Will monitor closely. 5. 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 Hypokalemia Potassium improving and up to 3.4 today. Will continue potassium replacement today with a goal potassium of 4.0. Magnesium level is stable at 2.0 yesterday.? Code status Full Prophylaxis Chemical prophylaxis contraindicated in the setting of thrombocytopenia Disposition Patient is quite weak.? PT recommended group home facility. Discussed with the interdisciplinary team and evidently there are some group home facility is in [place] that contract with Medicaid. Long-term acute care could also be considered. Team will be looking into options for discharge. Plans are for the patient to move to [place] with his father once his medical condition has stabilized. Quality VTE Deep Vein Thrombosis/Pulmonary Embolism Present on Admission: No
--- NOTE | 2023-06-16 11:29 | PT.IPTN ---
Current Diagnoses Acidosis, unspecified (06/12/23) Physical Therapy Treatment Note M2 PT-IP Current Condition Start: 06/15/23 15:08 Freq: NEEDED Status: Active Protocol: Document 06/15/23 14:00 AB (Rec: 06/15/23 15:34 AB [id number]) Physical Therapy Current Condition Current Condition Evaluation Date 06/15/23 Treatment Diagnosis ETOH w/d; difficulty in walking Onset Date 06/12/23 M3 PT-IP Subjective Start: 06/15/23 15:08 Freq: NEEDED Status: Active Protocol: Document 06/16/23 12:09 AB(2) (Rec: 06/16/23 12:32 AB(2) [id number]) Subjective Physical Therapy Visit Type Type Treatment Note Visit Start Time 11:29 Visit Stop Time 12:04 Total Visit Minutes 35 Notes Pt presents supine in bed with all needs met and call light within reach. Number of BUSINESS CONTINUITY SPECIALIST Visits 0 Physical Therapy Visit Comments Patient Comments The pt reports he is feeling tired, but would like to participate in PT session. Therapy Pain Assessment Pain When Pain Assessed At Rest Pain Present Pain Present Denied Pain M4 PT-IP Mobility and Gait Start: 06/15/23 15:08 Freq: NEEDED Status: Active Protocol: Document 06/16/23 12:09 AB(2) (Rec: 06/16/23 12:32 AB(2) [id number]) PT-Bed Mobility Assessment Rolling Type of Rolling Roll to Right,Roll to Left Level of Assist Standby Assistance Supine to Sit Supine to Sit Standby Assistance,Head of Bed Elevated,Bedrails Sit to Supine Sit to Supine Standby Assistance,Bedrails Scooting Scooting to Edge of Bed Standby Assistance Scooting Up and Down in Bed Standby Assistance PT-Transfer Assessment Sit to and From Stand Sit to and from Stand Standby Assistance,Contact Guard Assistance,Use of Upper Extremities Equipment Transfer Assistive Device Gait Belt,Front Wheeled Walker Transfers Transfer Destination Bed Transfer Technique Stand Step Pivot Transfer Ability Level of Assist Standby Assistance,Contact Guard Assistance,Use of Upper Extremities Comments Mobility Comments Bed elevated to improve ability to perform STS and transfers. Gait Assessment Gait Gait Assistance Required: Standby Assistance,Contact Guard Assist Distance (Feet) 10 Assistive Devices Assistive Device Gait Belt,Front Wheeled Walker Gait Deviations General Gait Pattern Decreased Stride Length Factors Limiting Gait Function Factors Limiting Gait Function Decreased Activity Tolerance, Decreased Sensation,Poor Balance Comments Gait Comments Mild instability noted when ambulating 2x10ft with FWW and SBA/CGA. Pt had one instance of LOB when turning, which required the pt to lower himself to the bed. Stair Climbing Assessment Comments Stair Climbing Comments Not assessed due to weakness and fatigue. PT-Balance Assessment Sitting Balance and Reactions Static Sitting Balance Ability Good Dynamic Sitting Balance Ability Good Standing Balance and Reactions Static Standing Balance Ability Fair Dynamic Standing Balance Ability Poor Device Used FWW M5 PT-IP Objective Assessments Start: 06/15/23 15:08 Freq: NEEDED Status: Active Protocol: Document 06/15/23 14:00 AB (Rec: 06/15/23 15:34 AB [id number]) Orientation Orientation/Cognition Level of Alertness Lethargic Orientation Name,Situation Safety Awareness Decreased Safety Awareness Gross Range of Motion Lower Extremity ROM Assessment Within Functional Limits Strength Lower Extremity Strength Assessment Within Functional Limits Sensation Assessment Sensation Gross Sensation WNL Muscle Tone Muscle Tone WNL Yes M6 PT-IP Treatment Start: 06/15/23 15:08 Freq: NEEDED Status: Active Protocol: Document 06/16/23 12:09 AB(2) (Rec: 06/16/23 12:32 AB(2) [id number]) Physical Therapy Treatment Exercises Exercises Ankle Pumps,Seated Knee Flexion/Extension,Shoulder Flexion Education Education Provided Safety Brace Education Patient Other Treatments Other Treatment Performed Seated hip flexion, cross body reaching, STS 2x5 HR remained stable (below 130 bpm) with activity. At end of session, the pt returned to bed with all needs met and call light within reach. RN notified. M7 PT-IP Assessment and Plan Start: 06/15/23 15:08 Freq: NEEDED Status: Active Protocol: Document 06/16/23 12:09 AB(2) (Rec: 06/16/23 12:32 AB(2) [id number]) PT Summary Assessment and Plan Potential Rehabilitation Potential Fair Status of Condition at Evaluation Stable Summary Impairments Strength,Bed Mobility, Transfers,Gait,Activity Tolerance Progress Towards Goals Progressing Toward Goals Assessment Summary The pt demonstrates good improvement since PT evaluation yesterday. He was able to participate in therapeutic exercises, reporting increased difficulty when performing LE strengthening exercises. He was instructed to perform these throughout the day to improve his LE strength, mobility and endurance. He is able to perform several repetitions of STS and transfers with FWW and SBA/CGA , though bed was elevated to improve his ability to do these. No LOB occurred when performing these, and the pt denied any symptoms. The pt was able to ambulate 2x10ft with FWW and SBA/CGA, demonstrating shortened stride lengths and denying any symptoms. He did have one instance of LOB when he was turning, requiring him to lower himself to the bed. The pt did not appear to be strong and stable enough to try to ambulate a longer distance or to use an SPC today. While the pt has made improvements in his level of function, d/c to SNF continues to be recommended as he is not able to ambulate household distances nor ascend/descend stairs needed at this time. He would continue to benefit from skilled PT to continue improving his level of function. Goals Bed Mobility Goal Independent Transfer Goal Independent,Front Wheeled Walker Gait Goal Contact Guard Assistance,Front Wheel Walker Gait Distance 150 Other Goals Improve transfers and ambulation using LRAD or without AD 300ft mod I. Ascend/descend 52 steps with B rails SBA. Days to Meet Goals 10 Frequency of Treatment Frequency Of Treatment Once a Day Treatment Plan Physical Therapy Treatment Plan Bed Mobility Training,Transfer Training,Gait Training, Therapeutic Exercise,Balance Retraining,Post Op Education, Discharge Planning,Hot or Cold Pack,Neuromuscular Re-ed, Coordination Retraining,Manual Therapy Other Recommendations and Next Treatment Attempt ambulating longer Focus distance or try adding standing therex to improve LE strength. Precautions Other Precautions HR; falls Recommendations To Nursing Amount of Assist Needed 1 Person Assist,2 Person Assist Discharge Recommendations PT Discharge Recommendations SNF Rehab Other Discharge Recommendations FWW if pt d/c to home and is unsafe without AD Transportation Needs at Discharge Private Vehicle,Wheelchair/ Cabulance
[2023-06-17] VITALS: BP 170/92; PULSE 103; RESP 25; TEMP 35.8; O2SAT 93
[2023-06-17 04:00] VITALS: BP 173/92; PULSE 105; RESP 25; TEMP 35.7; O2SAT 94
[2023-06-17] MEDS: PANTOPRAZOLE DR 40 MG TABLET PO (05:08)
[2023-06-17 05:29] LABS: Alanine Aminotransferase 146 IU/L (<50); Albumin 3.4 g/dL (3.5-5.0); Albumin Globulin Ratio 0.8 (1.0-2.8); Alkaline Phosphatase 216 U/L (38-126); Ammonia (NH3) 67 umol/L (9-30); Aspartate Aminotransferase 214 IU/L (17-59); BUN Creatinine Ratio 8.9 (6-22); Bilirubin Total 10.6 mg/dL (0.2-1.3); Blood Urea Nitrogen 5 mg/dL (9-20); Calcium 9.6 mg/dL (8.4-10.2); Carbon Dioxide 28 mmol/L (22-32); Chloride 99 mmol/L (98-107); Estimated Glomerular Filt Rate > 60 mL/min (>60); Globulin 4.3 g/dL (1.7-4.1); Glucose 98 mg/dL (70-100); HEMOLYSIS < 15 (0-50); Potassium 3.9 mmol/L (3.4-5.1); Prothrombin Time 23.6 SECONDS (10.1-12.7); Sodium 135 mmol/L (137-145); Total Protein 7.7 g/dL (6.3-8.2)
[2023-06-17 05:32] LABS: Add Manual Diff / Slide Review YES; Hematocrit 43.4 % (41-53); Hemoglobin 14.7 g/dL (13.5-17.5); Mean Corpuscular HGB Conc 33.8 % (30-36); Mean Corpuscular Hemoglobin 35.3 PG (26-34); Mean Corpuscular Volume 104.4 fL (80-100); Platelet Count 67 X10^3/uL (150-400); Red Blood Cell Count 4.16 X10^6/uL (4.5-5.9); White Blood Cell Count 4.7 X10^3/uL (4.5-11.0)
[2023-06-17 05:50] LABS: Macrocytosis 1+; Neutrophils Absolute Manual 2679 /uL (3000-5900); Nucleated Red Blood Cells 1 #/Diff; Total Cells Counted 100
[2023-06-17 08:00] VITALS: BP 142/74; PULSE 101; RESP 24; TEMP 36.7; O2SAT 96
[2023-06-17] MEDS: THIAMINE 100 MG TABLET PO (08:49)
[2023-06-17] MEDS: FOLIC ACID 1 MG TABLET PO (08:49)
[2023-06-17] MEDS: LACTULOSE 20 GM/30 ML SOLUTION PO ×3 (08:49→21:16)
[2023-06-17] MEDS: MULTIVITAMIN 1 TABLET 1 TAB PO (08:49)
[2023-06-17] MEDS: NYSTATIN POWDER 15GM 1 APPLIC TOP ×2 (08:49→21:16)
[2023-06-17] MEDS: prednisoLONE Syrup 15 MG/5 ML 40 MG PO (08:54)
--- NOTE | 2023-06-17 10:31 | CM.DPC ---
DCP Cont. IRRIGATOR VALVE PIPE reviewed EMR, consulted with floor team re: continued d/c needs/medical status. Pt continues acute ETOH withdrawl, was found to be sleeping when this IRRIGATOR VALVE PIPE attempted to visit. Per Hospitalist, pt will most likely be here a few more days. DCP will continue to monitor whether pt will d/c to SNF, which will be difficult due to ETOH/[employer] insurance, or home with supportive father.
--- NOTE | 2023-06-17 11:34 | OT.IP.EVAL ---
Addendum entered and electronically signed by Ayla Kilgore OT 06/17/23 12:58: manuel ROJAS as signer Original Note: Current Diagnoses Acidosis, unspecified (06/12/23) Occupational Therapy Inpatient Evaluation/Re-Eval M1 PT/OT-IP Prior Functional Status Start: 06/15/23 15:08 Freq: NEEDED Status: Active Protocol: Document 06/17/23 12:46 CGR (Rec: 06/17/23 12:57 CGR [id number]) Medical Review Prior Functional Status Medical History Reviewed Yes Communication able to make needs known Mobility and Gait pt stated that he is independent with all mobilities and ambulation without AD Activities of Daily Living and IADL's Pt states he is IND in all ADLs and IADLs at baseline Social History Household Members none Living Arrangements Apartment/Condo Number of Stairs To Enter/Railing? pt lives in a 3rd floor apartment with 13 steps x 4 B rails to get to his floor Home Environment Standard Height Toilet,Tub/ Shower Employment Status Retired Additional Social History Comment pt has his father at home for now to assist him M2 OT-IP Current Condition Start: 06/17/23 12:45 Freq: Status: Active Protocol: Document 06/17/23 12:46 CGR (Rec: 06/17/23 12:57 CGR [id number]) Occupational Therapy Current Condition Current Condition Evaluation Date 06/17/23 Treatment Diagnosis ETOH Diagnosis Onset Date 06/12/23 M3 OT- IP Subjective and Pain Start: 06/17/23 12:45 Freq: Status: Active Protocol: Document 06/17/23 12:46 CGR (Rec: 06/17/23 12:57 CGR [id number]) OT- Subjective Occupational Therapy Visit Type Type Initial Evaluation Visit Start Time 11:20 Visit Stop Time 11:34 Total Visit Minutes 14 Notes Pt's father present at start of session but left for session. Occupational Therapy Visit Comments Patient Comments I just ate a chocolate chip cookie so brushing teeth would be good. OT Pain Assessment Pain When Pain Assessed At Rest Pain Present Pain Present Denied Pain M4 OT- IP ADL's Start: 06/17/23 12:45 Freq: Status: Active Protocol: Document 06/17/23 12:46 CGR (Rec: 06/17/23 12:57 CGR [id number]) OT [id number] Comments OT Self-Feeding Comments not performed OT ADL-Grooming General Evaluation Grooming Ability Standby Assistance Areas Needing Assistance Face Washing Comments OT Grooming Comments standing at sink with set up OT ADL-Oral Care General Eval Oral Care Ability Standby Assistance Areas of Assistance Brushing Teeth Comments Oral Care Comments standing at sink with set up OT ADL-Dressing Comments OT Dressing Comments not performed OT ADL-Toileting Comments OT Toileting Comments not performed OT ADL-Bathing Comments OT Bathing Comments not performed M5 OT- IP IADL's Start: 06/17/23 12:45 Freq: Status: Active Protocol: Document 06/17/23 12:46 CGR (Rec: 06/17/23 12:57 CGR [id number]) OT-Instrumental Activities of Daily Living Deficits IADL Deficits Identified Deficits Home Safety Awareness Awareness of Need for Assistance at Home Decreased Awareness Ability to Problem Solve Emergency Unable to Problem Solve Situations Medication Management Medication Management Comments concerns regarding his ability to perform safely Money Management Money Management Comments concerns regarding his ability to perform safely Meal Preparation Meal Preparation Comments concerns regarding his ability to perform safely Homebirth Midwife Homebirth Midwife Comments concerns regarding his ability to perform safely Driving Driving Comments concerns regarding his ability to perform safely M6 OT- IP Functional Cognition Start: 06/17/23 12:45 Freq: Status: Active Protocol: Document 06/17/23 12:46 CGR (Rec: 06/17/23 12:57 CGR [id number]) Cognitive Factors Limiting Selfcare Function Cognitive Ability Level of Alertness Alert Patient Orientation Name,Age,Birthday,Month,Date, Year,Day of Week,Place, Situation Attention Span Ability Unable to Focus,Unable to Sustain Attention Ability to Follow Commands Able to Follow One Step Commands with Increased Time, Able to Follow One Step Commands with Repetition Cognitive Comments Cognitive Assessment Comments Pt with monotone speech and long stare but is able to answer basic questions with extra time. OT- Vision and Hearing OT- Hearing Assessment OT- Hearing Assessment WFL OT- Vision Assessment Visual Acuity WFL Visual Attentiveness WFL Occular Pursuits WFL Visual Convergence WFL Vision Assessment Comments with slight delays to occular pursuits M7 OT- IP Mobility and Balance Start: 06/17/23 12:45 Freq: Status: Active Protocol: Document 06/17/23 12:46 CGR (Rec: 06/17/23 12:57 CGR [id number]) OT-Transfer Assessment Sit to and From Stand Sit to and from Stand Minimal Assistance Transfers Transfer Ability Minimal Assistance Technique Transfer Destination Bed Transfer Technique Stand Step Pivot Devices Transfer Assistive Devices Gait Belt,Front Wheeled Walker Comments Mobility Comments Pt ambulated from bed to the sink with min a. Pt is off balance and needs VC for safety. OT- Balance Assessment Sitting Balance and Reactions Static Sitting Balance Ability Good Dynamic Sitting Balance Ability Good M8 OT- IP Objective Assessments Start: 06/17/23 12:45 Freq: Status: Active Protocol: Document 06/17/23 12:46 CGR (Rec: 06/17/23 12:57 CGR [id number]) OT Gross Range of Motion Upper Extremity Range of Motion Assessment Within Functional Limits OT Strength Upper Extremity Strength Assessment Within Functional Limits Comments Strength Comments 5/ OT- Coordination Assessment Upper Extremity Finger to Nose Test Within Functional Limits Finger Tapping Test Within Functional Limits OT-Muscle Tone Assessment Muscle Tone WNL Yes OT Sensation Assessment Edema Edema Absent M9 OT- IP Assessment and Plan Start: 06/17/23 12:45 Freq: Status: Active Protocol: Document 06/17/23 12:46 CGR (Rec: 06/17/23 12:57 CGR [id number]) OT Summary Assessment and Plan Potential Rehabilitation Potential Good Analytic Complexity at Evaluation Moderate Summary OT Impairments Balance,Functional Cognition, Functional Mobility,Dressing, Toileting,Bathing,Toilet Transfers,Shower Transfers, Activity Tolerance Progress Towards Goals Slow Progress due to Activity Tolerance,Slow Progress due to Cognition Assessment Summary Pt presents as a moderate complexity evaluation s/p admit for ETOH withdrawal. Pt currently a min A for mobility but with VC for safety using a walker. Pt is slow to answer and would benefit from a formal cog assessment. Recommend SNF at this time for discharge with the hope to progress to a safe discharge home with family support. Goals Grooming Goal Independent Dressing Goal Independent Toileting Goal Independent Bathing Goal Independent Toilet Transfer Goal Independent Shower Transfer Goal Independent Days to Meet Goals 10 Frequency of Treatment Frequency Of Treatment Once a Day Treatment Plan OT Treatment Plan ADL Training,Functional Cognition Training,Functional Mobility,Patient/Family Education,Discharge Planning Other Treatment Recommendations and Next cog assessment, shower Treatment Focus Discharge Recommendations OT Discharge Recommendations SNF Rehab Transportation Needs at Discharge Private Vehicle
[2023-06-17 12:00] VITALS: BP 154/84; PULSE 99; RESP 23; TEMP 36.4; O2SAT 91
--- NOTE | 2023-06-17 14:05 | PT.IPTN ---
Current Diagnoses Acidosis, unspecified (06/12/23) Physical Therapy Treatment Note M2 PT-IP Current Condition Start: 06/15/23 15:08 Freq: NEEDED Status: Active Protocol: Document 06/15/23 14:00 AB (Rec: 06/15/23 15:34 AB [id number]) Physical Therapy Current Condition Current Condition Evaluation Date 06/15/23 Treatment Diagnosis ETOH w/d; difficulty in walking Onset Date 06/12/23 M3 PT-IP Subjective Start: 06/15/23 15:08 Freq: NEEDED Status: Active Protocol: Document 06/17/23 14:05 AW (Rec: 06/17/23 14:26 AW [id number]) Subjective Physical Therapy Visit Type Type Treatment Note Visit Start Time 13:38 Visit Stop Time 14:03 Total Visit Minutes 25 Number of MAP COMPILER Visits 0 Physical Therapy Visit Comments Patient Comments Pt is tired but willing to participate with PT. Therapy Pain Assessment Pain When Pain Assessed At Rest Pain Present Pain Present Denied Pain M4 PT-IP Mobility and Gait Start: 06/15/23 15:08 Freq: NEEDED Status: Active Protocol: Document 06/17/23 14:05 AW (Rec: 06/17/23 14:26 AW [id number]) PT-Transfer Assessment Sit to and From Stand Sit to and from Stand Minimal Assistance Equipment Transfer Assistive Device Gait Belt,Front Wheeled Walker Transfers Transfer Destination Chair Transfer Technique Stand Step Pivot Transfer Ability Level of Assist Standby Assistance,Contact Guard Assistance,1 Person Assistance,Use of Upper Extremities Comments Mobility Comments BP 164/92 HR 105 (maxed at 110 during activity). Pt was sitting EOB as PT arrived. Switched FWW for bariatric FWW and pt stood with CGA. He agreed to ambulate, walking with bariatric FWW and SBA/ intermittent CGA a total of 35 feet before transferring to chair. Pt was able to stand from the chair with cues for sequence and CGA. He returned to sitting and agreed to sit up in chair. Call light was left within reach. Gait Assessment Gait Gait Assistance Required: Standby Assistance,Contact Guard Assist Distance (Feet) 35 Assistive Devices Assistive Device Gait Belt,Front Wheeled Walker Gait Deviations General Gait Pattern Decreased Stride Length, Decreased Feet Clearance,Wide Based Gait Factors Limiting Gait Function Factors Limiting Gait Function Decreased Activity Tolerance, Decreased Sensation,Poor Balance Comments Gait Comments Improved stability during turns. Bariatric FWW is a better fit and provides better support. Stair Climbing Assessment Comments Stair Climbing Comments Not assessed due to weakness and fatigue. PT-Balance Assessment Sitting Balance and Reactions Static Sitting Balance Ability Good Dynamic Sitting Balance Ability Good Standing Balance and Reactions Static Standing Balance Ability Fair Dynamic Standing Balance Ability Fair Device Used FWW M5 PT-IP Objective Assessments Start: 06/15/23 15:08 Freq: NEEDED Status: Active Protocol: Document 06/15/23 14:00 AB (Rec: 06/15/23 15:34 AB [id number]) Orientation Orientation/Cognition Level of Alertness Lethargic Orientation Name,Situation Safety Awareness Decreased Safety Awareness Gross Range of Motion Lower Extremity ROM Assessment Within Functional Limits Strength Lower Extremity Strength Assessment Within Functional Limits Sensation Assessment Sensation Gross Sensation WNL Muscle Tone Muscle Tone WNL Yes M6 PT-IP Treatment Start: 06/15/23 15:08 Freq: NEEDED Status: Active Protocol: Document 06/17/23 14:05 AW (Rec: 06/17/23 14:26 AW [id number]) Physical Therapy Treatment Education Education Provided Safety Other Treatments Other Treatment Performed Standing hip flexion march x 8 BLE. Standing hip abduction x5 BLE with walker for support M7 PT-IP Assessment and Plan Start: 06/15/23 15:08 Freq: NEEDED Status: Active Protocol: Document 06/17/23 14:05 AW (Rec: 06/17/23 14:26 AW [id number]) PT Summary Assessment and Plan Potential Rehabilitation Potential Fair Summary Impairments Strength,Balance,Bed Mobility, Transfers,Gait,Activity Tolerance Progress Towards Goals Progressing Toward Goals Assessment Summary Pt appears more alert today but speech is garbled ( intelligible ~60% of the time) . Pt able to stand and complete hip exercises. He improved his gait distance with the aid of a bariatric FWW which seems to improve his stability. Continue to recommend SNF at discharge for continued rehab services in a setting with 22/04 supervision and assist. Goals Bed Mobility Goal Independent Transfer Goal Independent,Front Wheeled Walker Gait Goal Contact Guard Assistance,Front Wheel Walker Gait Distance 150 Other Goals Improve transfers and ambulation using LRAD or without AD 300ft mod I. Ascend/descend 52 steps with B rails SBA. Days to Meet Goals 10 Frequency of Treatment Frequency Of Treatment Once a Day Treatment Plan Physical Therapy Treatment Plan Bed Mobility Training,Transfer Training,Gait Training, Therapeutic Exercise,Balance Retraining,Post Op Education, Discharge Planning,Hot or Cold Pack,Neuromuscular Re-ed, Coordination Retraining,Manual Therapy Other Recommendations and Next Treatment Continue standing ther ex. Focus Progress gait distance as able . May require chair follow. Precautions Other Precautions HR; falls Recommendations To Nursing Amount of Assist Needed 1 Person Assist,2 Person Assist Discharge Recommendations PT Discharge Recommendations SNF Rehab Equipment Needed for Home Before BARIATRIC FWW if pt d/c to Discharge home and is unsafe without AD Transportation Needs at Discharge Wheelchair/Cabulance
--- NOTE | 2023-06-17 14:08 | P.PN_ITS ---
Subjective Subjective Interval history: 43-year-old male with alcohol dependence who was admitted with alcohol in toxication, alcohol withdrawal, paroxysmal AFib with RVR, acute alcoholic hepatitis, thrombocytopenia, hypernatremia, and hypokalemia. Patient initially required a Precedex drip and ICU level of care. He is now off of librium. Bilirubin continuing to rise with elevated INR as well. AST/ALT are improving since admission. Started steroids today for alcoholic hepatitis given DF of near 60 based on today's labs. And is presently sitting up drinking coffee. He is somewhat slow to respond to questions but does answer them appropriately. He denies any abdominal pain. No shortness of breath. He remains weak and has difficult time getting up and around. Exam Vital Signs (past 8 hours): - 06/17/23 08:00 06/17/23 12:00 Temperature 98.1 F 97.5 F L Pulse Rate 101 H 99 H Respiratory Rate 24 23 Blood Pressure 142/74 H 154/84 H Pulse Oximetry 96 91 Oxygen Flow Rate 0 0 Fraction of Inspired Oxygen 28 SaO2/FiO2 Ratio 339 Oxygen Delivery Method Room Air Oxygen Flow Rate 0 Narrative Exam Narrative: GEN:? Chronically ill-appearing adult male, moderately jaundice, Alert and oriented x 3, somewhat slow to respond, NAD HEENT:NC, Face symmetric, moderate scleral icterus CHEST: Respiratory excursions symmetric, coarse but CTAB CV:? Mildly tachycardic with regular rhythm, no M/R/G ABD: Soft, obese, NT/ND, BT present in all 4 quadrants, body habitus limits exam EXTR: warm, well perfused, no C/C/2+ generalized edema, venous stasis changes noted bilaterally SKIN: warm and dry, no rash, jaundice NEURO: Alert and oriented x 3, nonfocal Objective Labs 06/17/23 05:00 06/17/23 05:00 Labs: Laboratory Results - last 24 hr 06/17/23 06/17/23 06/17/23 05:00 05:00 05:00 WBC 4.7 RBC 4.16 L Hgb 14.7 Hct 43.4 MCV 104.4 H MCH 35.3 H MCHC 33.8 RDW 17.0 H Plt Count 67 L Neut % (Auto) Not Reportable Lymph % (Auto) Not Reportable [place] % (Auto) Not Reportable Eos % (Auto) Not Reportable Baso % (Auto) Not Reportable Lymph # (Auto) Not Reportable [place] # (Auto) Not Reportable Baso # (Auto) Not Reportable Total Counted 100 Seg Neutrophils % 57.0 Lymphocytes % (Manual) 24.0 L Monocytes % (Manual) 18.0 H Basophils % (Manual) 1.0 Neutrophils # (Manual) 2679 L Nucleated RBCs 1 H RBC Morphology See below Macrocytosis 1+ H PT 23.6 H INR 2.0 H Sodium 135 L Potassium 3.9 Chloride 99 Carbon Dioxide 28 BUN 5 L Creatinine 0.56 L Estimated GFR > 60 BUN/Creatinine Ratio 8.9 Glucose 98 Calcium 9.6 Total Bilirubin 10.6 H AST 214 H ALT 146 H Alkaline Phosphatase 216 H Ammonia Total Protein 7.7 Albumin 3.4 L Globulin 4.3 H Albumin/Globulin Ratio 0.8 L 06/17/23 05:00 WBC RBC Hgb Hct MCV MCH MCHC RDW Plt Count Neut % (Auto) Lymph % (Auto) [place] % (Auto) Eos % (Auto) Baso % (Auto) Lymph # (Auto) [place] # (Auto) Baso # (Auto) Total Counted Seg Neutrophils % Lymphocytes % (Manual) Monocytes % (Manual) Basophils % (Manual) Neutrophils # (Manual) Nucleated RBCs RBC Morphology Macrocytosis PT INR Sodium Potassium Chloride Carbon Dioxide BUN Creatinine Estimated GFR BUN/Creatinine Ratio Glucose Calcium Total Bilirubin AST ALT Alkaline Phosphatase Ammonia 67 H Total Protein Albumin Globulin Albumin/Globulin Ratio REPLACED BY [facility] Social History household members: none Smoking Status: Unknown if ever smoked alcohol intake: current Assessment & Plan Assessment & Plan narrative: 1. Alcohol dependence, complicated by intoxication and severe withdrawal On admission, his alcohol level was 0.41.? He initially required treatment with a Precedex infusion.? He is now been on oral Librium.? No seizures.? Continues on multivitamin and folate.? Transitioned to normal dose thiamine. Librium was discontinued without significant side effects. 2. Alcohol-induced hepatitis Still markedly elevated bilirubin and AST/ALT. INR up too. DF of near 60 based on today's labs. Start prednisolone syrup, 40 mg daily for alcoholic hepatitis. Treatment is typically 28 days if patient responding. continue to follow labs. No gallstone were noted on abdominal imaging done 06/12, reviewed personally. 3. Paroxysmal AFib with RVR Resolved.? He does have sinus tachycardia now.? Echocardiogram revealed no acute findings.? He did initially require a diltiazem drip, followed by an esmolol drip which have since been discontinued.? Chads 2 Vasc score was 0, so anticoagulation is not indicated and with alcoholic hepatitis risks outweight any benefits at this time. 4. Thrombocytopenia Platelets are improving overall and are up to 67.? Likely secondary to alcohol.? Will monitor closely. 5. 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 Hypokalemia Potassium improving and up to normal today. Will continue potassium replacement today as needed. Magnesium level is stable at 2.0 yesterday.? Code status Full Prophylaxis Chemical prophylaxis contraindicated in the setting of thrombocytopenia and elevated INR currently Disposition Patient is quite weak.? PT recommended half-way facility. Discussed with the interdisciplinary team and evidently there are some half-way facility is in [place] that contract with Medicaid. Long-term acute care could also be considered. Team will be looking into options for discharge. Plans are for the patient to move to [place] with his father once his medical condition has stabilized. Additional history obtained via discussion with previous hospitalist provider. I have reviewed patient's labs, imaging, and documentation personally. Quality VTE Deep Vein Thrombosis/Pulmonary Embolism Present on Admission: No
[2023-06-17 16:00] VITALS: BP 140/75; PULSE 104; RESP 24; TEMP 36.9; O2SAT 94
[2023-06-17 20:00] VITALS: BP 138/78; PULSE 103; RESP 24; TEMP 36.6; O2SAT 96
[2023-06-17] MEDS: MELATONIN 3 MG TABLET 9 MG PO (21:17)
[2023-06-17] MEDS: QUETIAPINE 100 MG TABLET 25 MG PO (21:17)
[2023-06-18] VITALS: BP 144/71; PULSE 85; RESP 23; TEMP 35.6; O2SAT 97
--- NOTE | 2023-06-18 02:47 | PC.NURSE ---
Pt care transferred to this RN @[id number]
[2023-06-18 04:06] VITALS: BP 133/73; PULSE 91; RESP 30; TEMP 36.4; O2SAT 97
[2023-06-18] MEDS: PANTOPRAZOLE DR 40 MG TABLET PO (05:09)
[2023-06-18 05:13] LABS: Prothrombin Time 22.9 SECONDS (10.1-12.7)
[2023-06-18 05:25] LABS: Alanine Aminotransferase 119 IU/L (<50); Albumin 3.1 g/dL (3.5-5.0); Albumin Globulin Ratio 0.8 (1.0-2.8); Alkaline Phosphatase 197 U/L (38-126); Aspartate Aminotransferase 157 IU/L (17-59); BUN Creatinine Ratio 11.1 (6-22); Bilirubin Total 9.8 mg/dL (0.2-1.3); Blood Urea Nitrogen 6 mg/dL (9-20); Calcium 9.3 mg/dL (8.4-10.2); Carbon Dioxide 29 mmol/L (22-32); Chloride 100 mmol/L (98-107); Estimated Glomerular Filt Rate > 60 mL/min (>60); Globulin 3.9 g/dL (1.7-4.1); Glucose 112 mg/dL (70-100); HEMOLYSIS < 15 (0-50); Potassium 3.7 mmol/L (3.4-5.1); Sodium 133 mmol/L (137-145)
[2023-06-18 08:00] VITALS: BP 121/56; PULSE 80; RESP 19; TEMP 35.8; O2SAT 97
[2023-06-18] MEDS: FOLIC ACID 1 MG TABLET PO (09:30)
[2023-06-18] MEDS: THIAMINE 100 MG TABLET PO (09:30)
[2023-06-18] MEDS: MULTIVITAMIN 1 TABLET 1 TAB PO (09:30)
[2023-06-18] MEDS: LACTULOSE 20 GM/30 ML SOLUTION PO (09:30)
[2023-06-18] MEDS: NYSTATIN POWDER 15GM 1 APPLIC TOP ×2 (09:30→21:21)
[2023-06-18] MEDS: prednisoLONE Syrup 15 MG/5 ML 40 MG PO (09:31)
--- NOTE | 2023-06-18 11:30 | CM.DPC ---
DCP Cont. FLAT LOCK MACHINE OPERATOR reviewed chart and consulted in rounds re: pt progress with stabilization for continued d/c plan. Per Hospitalist, patient is now demonstrating hepatic encephelopathy, is beginning to improve with speech, but still garbled at times. Making progress w/PT-OT, up with walker, but remains a 2-person assist with transfers and care. Plan: most likely d/c home with family support, due to barriers of needing dual inpt facility for BHARTI and continued physical rehab, as well as the type of insurance he has. Discharge planning will continue to monitor.
[2023-06-18 12:00] VITALS: BP 132/70; PULSE 84; RESP 20; TEMP 36.2; O2SAT 95
--- NOTE | 2023-06-18 13:58 | P.PN_ITS ---
Subjective Subjective Interval history: 43-year-old male with alcohol dependence who was admitted with alcohol in toxication, alcohol withdrawal, paroxysmal AFib with RVR, acute alcoholic hepatitis, thrombocytopenia, hypernatremia, and hypokalemia. Patient initially required a Precedex drip and ICU level of care. He is now off of librium. Bilirubin continuing to rise with elevated INR as well. AST/ALT are improving since admission. Started steroids for alcoholic hepatitis given DF of near 60, now improved bili and INR remains stable. He is somewhat slow to respond to questions but does answer them appropriately. He denies any abdominal pain. No shortness of breath. He remains weak and has difficult time getting up and around but is doing much better. Exam Vital Signs (past 8 hours): - 06/18/23 08:00 06/18/23 07:00 06/18/23 12:00 Temperature 96.4 F L 97.1 F L Pulse Rate 80 84 Respiratory Rate 19 20 Blood Pressure 121/56 L 132/70 Pulse Oximetry 97 95 Oxygen Delivery Method Room Air Oxygen Flow Rate 0 0 Fraction of Inspired Oxygen 28 SaO2/FiO2 Ratio 339 Oxygen Delivery Method Room Air Oxygen Flow Rate 0 Narrative Exam Narrative: GEN:? Chronically ill-appearing adult male, moderately jaundice, Alert and oriented x 3, somewhat slow to respond, NAD HEENT:NC, Face symmetric, moderate scleral icterus CHEST: Respiratory excursions symmetric, coarse but CTAB CV:? Mildly tachycardic with regular rhythm, no M/R/G ABD: Soft, obese, NT/ND, BT present in all 4 quadrants, body habitus limits exam EXTR: warm, well perfused, no C/C/2+ generalized edema, venous stasis changes noted bilaterally SKIN: warm and dry, no rash, jaundice NEURO: Alert and oriented x 3, nonfocal Objective Labs 06/17/23 05:00 06/18/23 04:50 Labs: Laboratory Results - last 24 hr 06/18/23 06/18/23 04:50 04:50 PT 22.9 H INR 2.0 H Sodium 133 L Potassium 3.7 Chloride 100 Carbon Dioxide 29 BUN 6 L Creatinine 0.54 L Estimated GFR > 60 BUN/Creatinine Ratio 11.1 Glucose 112 H Calcium 9.3 Total Bilirubin 9.8 H AST 157 H ALT 119 H Alkaline Phosphatase 197 H Total Protein 7.0 Albumin 3.1 L Globulin 3.9 Albumin/Globulin Ratio 0.8 L [facility] Social History household members: none Smoking Status: Unknown if ever smoked alcohol intake: current Assessment & Plan Assessment & Plan narrative: 1. Alcohol dependence, complicated by intoxication and severe withdrawal On admission, his alcohol level was 0.41.? He initially required treatment with a Precedex infusion.? He is now been on oral Librium.? No seizures.? Continues on multivitamin and folate.? Transitioned to normal dose thiamine. Librium was discontinued without significant side effects. 2. Alcohol-induced hepatitis with hepatic encephalopathy. - Still markedly elevated bilirubin and AST/ALT. Though these are improving today. INR up too though stable today. DF of near 60. Started prednisolone syrup on 06/17, 40 mg daily for alcoholic hepatitis. Treatment is typically 28 days if patient responding. - continue to follow AST/ALT, bili, and INR - No gallstone were noted on abdominal imaging done 06/12, reviewed personally. Unclear with encephalopathy if this represents cirrhosis or complications of his alcoholic hepatitis. - will increase lactulose from 20 mg TID to 30 mg TID today to see if improvement with encephalopathy. Titrate to approx 3 BMs daily. 3. Paroxysmal AFib with RVR Resolved.? He does have sinus tachycardia now.? Echocardiogram revealed no acute findings.? He did initially require a diltiazem drip, followed by an esmolol drip which have since been discontinued.? Chads 2 Vasc score was 0, so anticoagulation is not indicated and with alcoholic hepatitis risks outweight any benefits at this time. 4. Thrombocytopenia Platelets are improving overall and are up to 67.? Likely secondary to alcohol.? Will monitor closely. 5. 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 Hypokalemia Potassium improving and up to normal today. Will continue potassium replacement today as needed. Magnesium level is stable at 2.0 yesterday.? Code status Full Prophylaxis Chemical prophylaxis contraindicated in the setting of thrombocytopenia and elevated INR currently Disposition Patient is quite weak.? PT recommended detention facility but his strength is improving. Discussed with the interdisciplinary team and evidently there are some detention facility is in [place] that contract with Medicaid. Long- term acute care could also be considered. Team will be looking into options for discharge. Plans are for the patient to move to [place] with his father once his medical condition has stabilized. Anticipate medically he Additional history obtained via discussion with bedside staff. I have reviewed patient's labs, imaging, and documentation personally. Quality VTE Deep Vein Thrombosis/Pulmonary Embolism Present on Admission: No
--- NOTE | 2023-06-18 14:02 | PT.IPTN ---
Current Diagnoses Acidosis, unspecified (06/12/23) Physical Therapy Treatment Note M2 PT-IP Current Condition Start: 06/15/23 15:08 Freq: NEEDED Status: Active Protocol: Document 06/15/23 14:00 AB (Rec: 06/15/23 15:34 AB [id number]) Physical Therapy Current Condition Current Condition Evaluation Date 06/15/23 Treatment Diagnosis ETOH w/d; difficulty in walking Onset Date 06/12/23 M3 PT-IP Subjective Start: 06/15/23 15:08 Freq: NEEDED Status: Active Protocol: Document 06/18/23 14:32 TS (Rec: 06/18/23 14:58 TS [id number]) Subjective Physical Therapy Visit Type Type Treatment Note Visit Start Time 14:02 Visit Stop Time 14:32 Total Visit Minutes 30 Number of PHARMACY CLERK Visits 1 Physical Therapy Visit Comments Patient Comments Pt found resting in bed, continues to have slurred speech, agreeable to PT. Therapy Pain Assessment Pain When Pain Assessed At Rest Pain Present Pain Present Denied Pain M4 PT-IP Mobility and Gait Start: 06/15/23 15:08 Freq: NEEDED Status: Active Protocol: Document 06/18/23 14:32 TS (Rec: 06/18/23 14:58 TS [id number]) PT-Bed Mobility Assessment Rolling Type of Rolling Roll to Right,Roll to Left Level of Assist Standby Assistance Supine to Sit Supine to Sit Standby Assistance,Head of Bed Elevated,Bedrails Sit to Supine Sit to Supine Standby Assistance,Bedrails Scooting Scooting to Edge of Bed Standby Assistance Scooting Up and Down in Bed Standby Assistance PT-Transfer Assessment Sit to and From Stand Sit to and from Stand Contact Guard Assistance Equipment Transfer Assistive Device Gait Belt,Front Wheeled Walker Orthotic/Prosthetic Devices or Brace: No Comments Mobility Comments Pt found resting in bed, agreeable to PT. He performed supine to sit with HOB elevated with BUE support to sit EOB. He performed sit to stand x2 CGA w/FWW, pt has good balance coming into standing with no retroleaning. He ambulated ~50' in room CGA with FWW and slow step thru gait, pt is unsteady but has no buckling or LOB. Pt performed steps x10 CGA with R handrail assist and L handheld assist, pt is unsteady when ascending step but does not have any buckling or LOB. Pt has some SOB, Spo2 94% on Ra, HR104. Sit to supine SBA with BUE support, pt scooted to HOB SBA with cues for handrails. Pt was left in bed with call light nearby, bed alarm on, RN notified. Gait Assessment Gait Gait Assistance Required: Contact Guard Assist Distance (Feet) 50 Able to Maintain Weight Bearing Status Yes During Gait Assistive Devices Assistive Device Gait Belt,Front Wheeled Walker Orthotic/Prosthetic Devices or Brace: No Gait Deviations General Gait Pattern Decreased Stride Length, Decreased Feet Clearance,Wide Based Gait Factors Limiting Gait Function Factors Limiting Gait Function Decreased Activity Tolerance, Decreased Sensation,Poor Balance Comments Gait Comments See mobility comments. Stair Climbing Assessment Evaluation Level of Assist On Stairs Contact Guard Assistance,1 Person Assistance Devices Stair Climbing Assistive Devices Left Railing,Right Railing Technique/Endurance Stair Climbing Direction Ascend and Descend Stair Climbing Technique Step to Step Number of Steps Climbed 10 Comments Stair Climbing Comments See mobility comments PT-Balance Assessment Sitting Balance and Reactions Static Sitting Balance Ability Good Dynamic Sitting Balance Ability Good Standing Balance and Reactions Static Standing Balance Ability Fair Dynamic Standing Balance Ability Fair Device Used FWW M5 PT-IP Objective Assessments Start: 06/15/23 15:08 Freq: NEEDED Status: Active Protocol: Document 06/15/23 14:00 AB (Rec: 06/15/23 15:34 AB [id number]) Orientation Orientation/Cognition Level of Alertness Lethargic Orientation Name,Situation Safety Awareness Decreased Safety Awareness Gross Range of Motion Lower Extremity ROM Assessment Within Functional Limits Strength Lower Extremity Strength Assessment Within Functional Limits Sensation Assessment Sensation Gross Sensation WNL Muscle Tone Muscle Tone WNL Yes M6 PT-IP Treatment Start: 06/15/23 15:08 Freq: NEEDED Status: Active Protocol: Document 06/18/23 14:32 TS (Rec: 06/18/23 14:58 TS [id number]) Physical Therapy Treatment Education Education Provided Safety M7 PT-IP Assessment and Plan Start: 06/15/23 15:08 Freq: NEEDED Status: Active Protocol: Document 06/18/23 14:32 TS (Rec: 06/18/23 14:58 TS [id number]) PT Summary Assessment and Plan Potential Rehabilitation Potential Fair Summary Impairments Strength,Balance,Bed Mobility, Transfers,Gait,Activity Tolerance Progress Towards Goals Progressing Toward Goals Assessment Summary Pt is making some progress with his mobility this session . He is SBA for all bed mobility with some cueing for handrail assist. He performed sit to stand x2 SBA w/FWW and progressed his gait to ~50'CGA w/FWW in room. He is unsteady on his feet but has no buckling or LOB. He progressed to stairs x10 CGA with rail support and handheld assist, he is unsteay when ascending steps. He continues to have slurred speech and some difficulty answering questions . PT continues to recommend SNF at this time. Goals Bed Mobility Goal Independent Transfer Goal Independent,Front Wheeled Walker Gait Goal Contact Guard Assistance,Front Wheel Walker Gait Distance 150 Other Goals Improve transfers and ambulation using LRAD or without AD 300ft mod I. Ascend/descend 52 steps with B rails SBA. Days to Meet Goals 10 Frequency of Treatment Frequency Of Treatment Once a Day Treatment Plan Physical Therapy Treatment Plan Bed Mobility Training,Transfer Training,Gait Training, Therapeutic Exercise,Balance Retraining,Post Op Education, Discharge Planning,Hot or Cold Pack,Neuromuscular Re-ed, Coordination Retraining,Manual Therapy Other Recommendations and Next Treatment Continue standing ther ex. Focus Progress gait distance as able . May require chair follow. Precautions Other Precautions HR; falls Recommendations To Nursing Amount of Assist Needed 1 Person Assist,2 Person Assist Discharge Recommendations PT Discharge Recommendations SNF Rehab Equipment Needed for Home Before BARIATRIC FWW if pt d/c to Discharge home and is unsafe without AD Transportation Needs at Discharge Wheelchair/Cabulance
[2023-06-18] MEDS: LACTULOSE 20 GM/30 ML SOLUTION 30 GM PO ×2 (14:37→21:17)
[2023-06-18 16:00] VITALS: BP 132/66; PULSE 91; RESP 24; TEMP 35.9; O2SAT 93
--- NOTE | 2023-06-18 16:45 | OT.IP.TRT ---
Current Diagnoses Acidosis, unspecified (06/12/23) Occupational Therapy Treatment Note M2 OT-IP Current Condition Start: 06/17/23 12:45 Freq: Status: Active Protocol: Document 06/17/23 12:46 CGR (Rec: 06/17/23 12:57 CGR [id number]) Occupational Therapy Current Condition Current Condition Evaluation Date 06/17/23 Treatment Diagnosis ETOH Diagnosis Onset Date 06/12/23 M3 OT- IP Subjective and Pain Start: 06/17/23 12:45 Freq: Status: Active Protocol: Document 06/18/23 16:48 [facility] (Rec: 06/18/23 16:53 [facility] [id number]) OT- Subjective Occupational Therapy Visit Type Type Treatment Note Visit Start Time 16:30 Visit Stop Time 16:45 Total Visit Minutes 15 Occupational Therapy Visit Comments Patient Comments Pt not wanting to get up and but agreed to do a cognitive assessment. Patient/Caregiver Goals To go home. OT Pain Assessment Pain When Pain Assessed At Rest Pain Present Pain Present Denied Pain M6 OT- IP Functional Cognition Start: 06/17/23 12:45 Freq: Status: Active Protocol: Document 06/18/23 16:48 [facility] (Rec: 06/18/23 16:53 [facility] [id number]) Cognitive Factors Limiting Selfcare Function Cognitive Ability Attention Span Ability Capable of Focused Attention, Capable of Sustained Attention Ability to Follow Commands Able to Follow Multi-Step Commands Memory Description Short Term Impaired Cognitive Tests SLUMS Pt scored 25/30 on the SLUMS which implies normal for his high school education. Pt able to recall 4/5 objects after time passed and able to answer 2/4 questions right after a paragraph read. Cognitive Comments Cognitive Assessment Comments Pt increased time to answer questions but able to participate in the SLUMS. M9 OT- IP Assessment and Plan Start: 06/17/23 12:45 Freq: Status: Active Protocol: Document 06/18/23 16:48 [facility] (Rec: 06/18/23 16:53 [facility] [id number]) OT Summary Assessment and Plan Potential Rehabilitation Potential Good Analytic Complexity at Evaluation Moderate Summary Progress Towards Goals Slow Progress due to Medical Issues,Slow Progress due to Activity Tolerance Assessment Summary Pt scored 25/30 on the SLUMS which implies normal for his high school education. Able to suggest have his father look into getting a bariatric FWW for him at [facility]. Pt to go home with his father when medically stable. Goals Grooming Goal Independent Dressing Goal Independent Toileting Goal Independent Bathing Goal Independent Toilet Transfer Goal Independent Shower Transfer Goal Independent Days to Meet Goals 7 Frequency of Treatment Frequency Of Treatment Once a Day Treatment Plan OT Treatment Plan ADL Training,Functional Cognition Training,Functional Mobility,Patient/Family Education,Discharge Planning Other Treatment Recommendations and Next shower Treatment Focus Discharge Recommendations OT Discharge Recommendations Home with Assistance Home Equipment Needs bariatric FWW Transportation Needs at Discharge Private Vehicle
[2023-06-18 20:00] VITALS: BP 133/78; PULSE 91; RESP 25; TEMP 36.4; O2SAT 92
[2023-06-18] MEDS: QUETIAPINE 100 MG TABLET 25 MG PO (21:17)
[2023-06-18] MEDS: MELATONIN 3 MG TABLET 9 MG PO (21:17)
[2023-06-19] VITALS: BP 144/80; PULSE 88; RESP 22; TEMP 36.1; O2SAT 94
[2023-06-19 04:00] VITALS: BP 151/82; PULSE 89; RESP 22; TEMP 36; O2SAT 92
[2023-06-19 04:48] LABS: Add Manual Diff / Slide Review NO; Basophils Absolute Auto 0 /uL (0-100); Basophils Percent Auto 0.8 % (0-2); Eosinophils Absolute Auto 100 /uL (0-450); Eosinophils Percent Auto 1.5 % (2-4); Hematocrit 43.4 % (41-53); Hemoglobin 14.4 g/dL (13.5-17.5); Lymphocytes Absolute Auto 700 /uL (1100-4500); Lymphocytes Percent Auto 16.1 % (25-40); Mean Corpuscular HGB Conc 33.3 % (30-36); Mean Corpuscular Hemoglobin 35.4 PG (26-34); Mean Corpuscular Volume 106.3 fL (80-100); Monocytes Absolute Auto 700 /uL (0-900); Monocytes Percent Auto 16.7 % (3-14); Neutrophils Absolute Auto 2800 /uL (1500-7000); Neutrophils Percent Auto 64.9 % (50-75); Platelet Count 92 X10^3/uL (150-400); Red Blood Cell Count 4.08 X10^6/uL (4.5-5.9); Red Cell Distribution Width 18.1 % (11.6-14.8); White Blood Cell Count 4.3 X10^3/uL (4.5-11.0)
[2023-06-19 04:50] LABS: INR 1.8 (0.9-1.3); Prothrombin Time 20.7 SECONDS (10.1-12.7)
[2023-06-19 04:55] LABS: Alanine Aminotransferase 118 IU/L (<50); Albumin 3.1 g/dL (3.5-5.0); Albumin Globulin Ratio 0.7 (1.0-2.8); Alkaline Phosphatase 203 U/L (38-126); Aspartate Aminotransferase 130 IU/L (17-59); BUN Creatinine Ratio 15.7 (6-22); Bilirubin Total 8.8 mg/dL (0.2-1.3); Blood Urea Nitrogen 8 mg/dL (9-20); Calcium 9.2 mg/dL (8.4-10.2); Carbon Dioxide 29 mmol/L (22-32); Chloride 100 mmol/L (98-107); Estimated Glomerular Filt Rate > 60 mL/min (>60); Globulin 4.3 g/dL (1.7-4.1); Glucose 112 mg/dL (70-100); HEMOLYSIS < 15 (0-50); Potassium 3.7 mmol/L (3.4-5.1); Sodium 137 mmol/L (137-145); Total Protein 7.4 g/dL (6.3-8.2)
[2023-06-19] MEDS: PANTOPRAZOLE DR 40 MG TABLET PO (05:44)
[2023-06-19 07:45] VITALS: BP 113/72; PULSE 85; RESP 25; TEMP 36.4; O2SAT 94
[2023-06-19] MEDS: prednisoLONE Syrup 15 MG/5 ML 40 MG PO (08:40)
[2023-06-19] MEDS: LACTULOSE 20 GM/30 ML SOLUTION 30 GM PO ×3 (08:40→20:55)
[2023-06-19] MEDS: FOLIC ACID 1 MG TABLET PO (08:40)
[2023-06-19] MEDS: MULTIVITAMIN 1 TABLET 1 TAB PO (08:40)
[2023-06-19] MEDS: THIAMINE 100 MG TABLET PO (08:40)
[2023-06-19] MEDS: NYSTATIN POWDER 15GM 1 APPLIC TOP ×2 (08:41→20:53)
--- NOTE | 2023-06-19 11:35 | PT.IPTN ---
Current Diagnoses Acidosis, unspecified (06/12/23) Physical Therapy Treatment Note M2 PT-IP Current Condition Start: 06/15/23 15:08 Freq: NEEDED Status: Active Protocol: Document 06/15/23 14:00 AB (Rec: 06/15/23 15:34 AB [id number]) Physical Therapy Current Condition Current Condition Evaluation Date 06/15/23 Treatment Diagnosis ETOH w/d; difficulty in walking Onset Date 06/12/23 M3 PT-IP Subjective Start: 06/15/23 15:08 Freq: NEEDED Status: Active Protocol: Document 06/19/23 12:04 TS (Rec: 06/19/23 12:18 TS [id number]) Subjective Physical Therapy Visit Type Type Treatment Note Visit Start Time 11:35 Visit Stop Time 12:00 Total Visit Minutes 25 Number of FINANCE ANALYST Visits 2 Physical Therapy Visit Comments Patient Comments Pt found resting in bed, continues to have slurred speech but can answer questions well. Pt required some motivation to work with PT this moring. M4 PT-IP Mobility and Gait Start: 06/15/23 15:08 Freq: NEEDED Status: Active Protocol: Document 06/19/23 12:04 TS (Rec: 06/19/23 12:18 TS [id number]) PT-Bed Mobility Assessment Rolling Type of Rolling Roll to Right,Roll to Left Level of Assist Contact Guard Assistance,1 Person Assistance Supine to Sit Supine to Sit Standby Assistance,Head of Bed Elevated,Bedrails Sit to Supine Sit to Supine Standby Assistance,Bedrails Scooting Scooting to Edge of Bed Standby Assistance Scooting Up and Down in Bed Standby Assistance PT-Transfer Assessment Sit to and From Stand Sit to and from Stand Standby Assistance,Contact Guard Assistance Equipment Transfer Assistive Device Gait Belt,Front Wheeled Walker Orthotic/Prosthetic Devices or Brace: No Comments Mobility Comments Pt found resting in bed, Spo2 91% on RA, HR 96. Supine to sit HOB elevated SBA with BUE support and handrail assist. He performed sit to stand x1 with FWW SBA, pt had no retroleaning. He ambulated in room ~60' CGA/SBA w/FWW, he is unsteady with gait but has no buckling or LOB, denied any dizziness. He peformed steps x10 on step stool with LUE counter support and RUE handheld assist CGA. After stairs pt had some SOB, Spo2 87% on RA, HR 119. Pt was left back in bed with call light nearby, father and CITY ADMINISTRATOR in room . Gait Assessment Gait Gait Assistance Required: Standby Assistance,Contact Guard Assist Distance (Feet) 60 Able to Maintain Weight Bearing Status Yes During Gait Assistive Devices Assistive Device Gait Belt,Front Wheeled Walker Orthotic/Prosthetic Devices or Brace: No Gait Deviations General Gait Pattern Decreased Stride Length, Decreased Feet Clearance,Wide Based Gait Factors Limiting Gait Function Factors Limiting Gait Function Decreased Activity Tolerance, Decreased Sensation,Poor Balance Comments Gait Comments See mobility comments. Stair Climbing Assessment Evaluation Level of Assist On Stairs Contact Guard Assistance,1 Person Assistance Devices Stair Climbing Assistive Devices Left Railing,Right Railing Technique/Endurance Stair Climbing Direction Ascend and Descend Stair Climbing Technique Step to Step Number of Steps Climbed 10 Comments Stair Climbing Comments x10 steps on stool in room. Pt used sink counter for support and handheld assist. See mobility comments. PT-Balance Assessment Sitting Balance and Reactions Static Sitting Balance Ability Good Dynamic Sitting Balance Ability Good Standing Balance and Reactions Static Standing Balance Ability Fair Dynamic Standing Balance Ability Fair Device Used FWW M5 PT-IP Objective Assessments Start: 06/15/23 15:08 Freq: NEEDED Status: Active Protocol: Document 06/15/23 14:00 AB (Rec: 06/15/23 15:34 AB [id number]) Orientation Orientation/Cognition Level of Alertness Lethargic Orientation Name,Situation Safety Awareness Decreased Safety Awareness Gross Range of Motion Lower Extremity ROM Assessment Within Functional Limits Strength Lower Extremity Strength Assessment Within Functional Limits Sensation Assessment Sensation Gross Sensation WNL Muscle Tone Muscle Tone WNL Yes M6 PT-IP Treatment Start: 06/15/23 15:08 Freq: NEEDED Status: Active Protocol: Document 06/19/23 12:04 TS (Rec: 06/19/23 12:18 TS [id number]) Physical Therapy Treatment Education Education Provided Safety M7 PT-IP Assessment and Plan Start: 06/15/23 15:08 Freq: NEEDED Status: Active Protocol: Document 06/19/23 12:04 TS (Rec: 06/19/23 12:18 TS [id number]) PT Summary Assessment and Plan Potential Rehabilitation Potential Fair Summary Impairments Strength,Balance,Bed Mobility, Transfers,Gait,Activity Tolerance Progress Towards Goals Progressing Toward Goals Assessment Summary Pt continues to make progress with his mobility. He progressed his gait to ~60'SBA /CGA w/FWW, pt is unsteady and often ambulates with eyes closed/partially opened, still remains a high falls risk. He continues to perform steps x10 with handheld assist and sink counter support CGA, he quickly becomes SOB and Spo2 desats from 91% with mobility to 87% on RA. He continues to be SBA for all bed mobility. PT continues to recommend SNF to improve functional mobility and activity tolerance. Goals Bed Mobility Goal Independent Transfer Goal Independent,Front Wheeled Walker Gait Goal Contact Guard Assistance,Front Wheel Walker Gait Distance 150 Other Goals Improve transfers and ambulation using LRAD or without AD 300ft mod I. Ascend/descend 52 steps with B rails SBA. Days to Meet Goals 10 Frequency of Treatment Frequency Of Treatment Once a Day Treatment Plan Physical Therapy Treatment Plan Bed Mobility Training,Transfer Training,Gait Training, Therapeutic Exercise,Balance Retraining,Post Op Education, Discharge Planning,Hot or Cold Pack,Neuromuscular Re-ed, Coordination Retraining,Manual Therapy Other Recommendations and Next Treatment Continue standing ther ex. Focus Progress gait distance as able and stairs. May require chair follow. Precautions Other Precautions HR; falls Recommendations To Nursing Amount of Assist Needed 1 Person Assist Discharge Recommendations PT Discharge Recommendations SNF Rehab Equipment Needed for Home Before BARIATRIC FWW if pt d/c to Discharge home and is unsafe without AD Transportation Needs at Discharge Wheelchair/Cabulance
[2023-06-19 11:59] VITALS: BP 156/99; PULSE 96; RESP 28; TEMP 36.4; O2SAT 90
--- NOTE | 2023-06-19 13:59 | P.PN_ITS ---
Subjective Subjective Interval history: 43-year-old male with alcohol dependence who was admitted with alcohol in toxication, alcohol withdrawal, paroxysmal AFib with RVR, acute alcoholic hepatitis, thrombocytopenia, hypernatremia, and hypokalemia. Patient initially required a Precedex drip and ICU level of care. He is now off of librium. Bilirubin continuing to rise with elevated INR as well. AST/ALT are improving since admission. Started steroids for alcoholic hepatitis given DF of near 60, now improved bili and INR remains stable. He is somewhat slow to respond to questions but does answer them appropriately. He denies any abdominal pain. No shortness of breath. He is doing much better, labs continue to improve. He still appears a bit encephlopathic but stabilizing. Exam Vital Signs (past 8 hours): - 06/19/23 07:45 06/19/23 07:00 06/19/23 11:59 Temperature 97.5 F L 97.5 F L Pulse Rate 85 96 H Respiratory Rate 25 H 28 H Blood Pressure 113/72 156/99 H Pulse Oximetry 94 90 L Oxygen Delivery Method Room Air Oxygen Flow Rate 2 0 Fraction of Inspired Oxygen 28 SaO2/FiO2 Ratio 339 Oxygen Delivery Method Room Air Oxygen Flow Rate 0 Narrative Exam Narrative: GEN:? Chronically ill-appearing adult male, improved jaundice, Alert and oriented x 3, somewhat slow to respond, NAD HEENT:NC, Face symmetric, moderate scleral icterus CHEST: Respiratory excursions symmetric, coarse but CTAB CV:? Mildly tachycardic with regular rhythm, no M/R/G ABD: Soft, obese, NT/ND, BT present in all 4 quadrants, body habitus limits exam EXTR: warm, well perfused, no C/C/2+ generalized edema, venous stasis changes noted bilaterally SKIN: warm and dry, no rash, jaundice NEURO: Alert and oriented x 3, nonfocal Objective Labs 06/19/23 04:30 06/19/23 04:30 Labs: Laboratory Results - last 24 hr 06/19/23 06/19/23 06/19/23 04:30 04:30 04:30 WBC 4.3 L RBC 4.08 L Hgb 14.4 Hct 43.4 MCV 106.3 H MCH 35.4 H MCHC 33.3 RDW 18.1 H Plt Count 92 L Neut % (Auto) 64.9 Lymph % (Auto) 16.1 L Orange % (Auto) 16.7 H Eos % (Auto) 1.5 L Baso % (Auto) 0.8 Neut # (Auto) 2800 Lymph # (Auto) 700 L Orange # (Auto) 700 Eos # (Auto) 100 Baso # (Auto) 0 PT 20.7 H INR 1.8 H Sodium 137 Potassium 3.7 Chloride 100 Carbon Dioxide 29 BUN 8 L Creatinine 0.51 L Estimated GFR > 60 BUN/Creatinine Ratio 15.7 Glucose 112 H Calcium 9.2 Total Bilirubin 8.8 H AST 130 H ALT 118 H Alkaline Phosphatase 203 H Total Protein 7.4 Albumin 3.1 L Globulin 4.3 H Albumin/Globulin Ratio 0.7 L [facility] Social History household members: none Smoking Status: Unknown if ever smoked alcohol intake: current Assessment & Plan Assessment & Plan narrative: 1. Alcohol dependence, complicated by intoxication and severe withdrawal On admission, his alcohol level was 0.41.? He initially required treatment with a Precedex infusion.? He is now been on oral Librium.? No seizures.? Continues on multivitamin and folate.? Transitioned to normal dose thiamine. Librium was discontinued without significant side effects. 2. Alcohol-induced hepatitis with hepatic encephalopathy. - Still markedly elevated bilirubin and AST/ALT. Though these are still improving today. INR finally improving. DF of near 60. Started prednisolone syrup on 06/17, 40 mg daily for alcoholic hepatitis. Treatment is typically 28 days if patient responding which it appears he is. - continue to follow AST/ALT, bili, and INR - No gallstone were noted on abdominal imaging done 06/12, reviewed personally. Unclear with encephalopathy if this represents cirrhosis or complications of his alcoholic hepatitis. - Increased lactulose from 20 mg TID to 30 mg TID today to see if improvement with encephalopathy. Titrate to approx 3 BMs daily. 3. Paroxysmal AFib with RVR Resolved.? He does have sinus tachycardia now.? Echocardiogram revealed no acute findings.? He did initially require a diltiazem drip, followed by an esmolol drip which have since been discontinued.? Chads 2 Vasc score was 0, so anticoagulation is not indicated and with alcoholic hepatitis risks outweight any benefits at this time. 4. Thrombocytopenia Platelets are improving overall and are up to 67.? Likely secondary to alcohol.? Will monitor closely. 5. 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 Hypokalemia Potassium improving and up to normal today. Will continue potassium replacement today as needed. Magnesium level is stable at 2.0 yesterday.? Code status Full Prophylaxis Chemical prophylaxis contraindicated in the setting of thrombocytopenia and elevated INR currently Disposition Discharge home, likely tomorrow if his liver testing continues to improve and no worsening of mentation. Additional history obtained via discussion with bedside staff. I have reviewed patient's labs, imaging, and documentation personally. Quality VTE Deep Vein Thrombosis/Pulmonary Embolism Present on Admission: No
[2023-06-19 15:00] VITALS: BP 133/71; PULSE 93; RESP 28; TEMP 36.2; O2SAT 91
--- NOTE | 2023-06-19 17:34 | OT.IP.TRT ---
Current Diagnoses Acidosis, unspecified (06/12/23) Occupational Therapy Treatment Note M2 OT-IP Current Condition Start: 06/17/23 12:45 Freq: Status: Active Protocol: Document 06/17/23 12:46 CGR (Rec: 06/17/23 12:57 CGR [id number]) Occupational Therapy Current Condition Current Condition Evaluation Date 06/17/23 Treatment Diagnosis ETOH Diagnosis Onset Date 06/12/23 M3 OT- IP Subjective and Pain Start: 06/17/23 12:45 Freq: Status: Active Protocol: Document 06/19/23 17:21 [facility] (Rec: 06/19/23 17:51 [facility] [id number]) OT- Subjective Occupational Therapy Visit Type Type Treatment Note Visit Start Time 17:21 Visit Stop Time 17:34 Total Visit Minutes 13 Occupational Therapy Visit Comments Patient Comments Pt in the bed and not wanting to get up at this time. Pt's dad in the room and able to go over equipment need. Patient/Caregiver Goals TO go home. to perform safely M6 OT- IP Functional Cognition Start: 06/17/23 12:45 Freq: Status: Active Protocol: Document 06/19/23 17:21 [facility] (Rec: 06/19/23 17:51 [facility] [id number]) Cognitive Factors Limiting Selfcare Function Cognitive Comments Cognitive Assessment Comments Pt able to remember that he completed the cognitive assessment yesterday. M9 OT- IP Assessment and Plan Start: 06/17/23 12:45 Freq: Status: Active Protocol: Document 06/19/23 17:21 [facility] (Rec: 06/19/23 17:51 [facility] [id number]) OT Summary Assessment and Plan Potential Rehabilitation Potential Good Analytic Complexity at Evaluation Moderate Summary Progress Towards Goals Slow Progress due to Medical Issues,Slow Progress due to Activity Tolerance Assessment Summary Able to talk to pt's dad regarding getting a bariatric walker and heavy duty shower chair for home use. Pt now looking to go home with his dad for 24/7 assist and home health will be beneficial. Goals Grooming Goal Independent Dressing Goal Independent Toileting Goal Independent Bathing Goal Independent Toilet Transfer Goal Independent Shower Transfer Goal Independent Days to Meet Goals 6 Frequency of Treatment Frequency Of Treatment Once a Day Treatment Plan OT Treatment Plan ADL Training,Functional Cognition Training,Functional Mobility,Patient/Family Education,Discharge Planning Discharge Recommendations OT Discharge Recommendations Home with 24/7 Assist Available,Home Health,SNF Rehab Transportation Needs at Discharge Private Vehicle
--- NOTE | 2023-06-19 17:49 | PC.NURSE ---
Addendum entered by Emily aMlik R.N. 06/19/23 17:55: Provider note mentioned that pt will possibly be discharged tomorrow, depending on labs and cognition. RN relayed this information on to the patient and pt father. Original Note: Patient mentioned that he felt like he was working a little harder at breathing but not short of breath. RN relayed this information on to the provider, along with most recent VS of RR mid-upper 20s and O2 sats low 90s (room air), which was a small change from the past couple days. Provider acknowledged RN concerns and mentioned the possibility of diuresing the patient.
[2023-06-19 20:00] VITALS: BP 149/86; PULSE 88; RESP 22; TEMP 36.6; O2SAT 92
[2023-06-19] MEDS: MELATONIN 3 MG TABLET 9 MG PO (20:52)
--- NOTE | 2023-06-20 01:42 | PC.NURSE ---
Patient has been resting in bed most of the shift. Has been calm and cooperative.
[2023-06-20 04:00] VITALS: BP 136/71; PULSE 84; RESP 22; TEMP 35.8; O2SAT 93
[2023-06-20 05:56] LABS: INR 1.7 (0.9-1.3); Prothrombin Time 19.9 SECONDS (10.1-12.7)
[2023-06-20 05:57] LABS: Alanine Aminotransferase 118 IU/L (<50); Albumin 3.2 g/dL (3.5-5.0); Albumin Globulin Ratio 0.8 (1.0-2.8); Alkaline Phosphatase 208 U/L (38-126); Aspartate Aminotransferase 141 IU/L (17-59); BUN Creatinine Ratio 15.7 (6-22); Bilirubin Total 8.1 mg/dL (0.2-1.3); Blood Urea Nitrogen 8 mg/dL (9-20); Calcium 9.4 mg/dL (8.4-10.2); Carbon Dioxide 32 mmol/L (22-32); Chloride 100 mmol/L (98-107); Estimated Glomerular Filt Rate > 60 mL/min (>60); Globulin 4.1 g/dL (1.7-4.1); Glucose 96 mg/dL (70-100); HEMOLYSIS < 15 (0-50); Potassium 3.4 mmol/L (3.4-5.1); Sodium 136 mmol/L (137-145); Total Protein 7.3 g/dL (6.3-8.2)
[2023-06-20] MEDS: PANTOPRAZOLE DR 40 MG TABLET PO (06:02)
[2023-06-20 06:41] LABS: Hematocrit 44.1 % (41-53); Hemoglobin 14.8 g/dL (13.5-17.5); Mean Corpuscular HGB Conc 33.5 % (30-36); Mean Corpuscular Hemoglobin 35.7 PG (26-34); Mean Corpuscular Volume 106.7 fL (80-100); Platelet Count 88 X10^3/uL (150-400); Red Blood Cell Count 4.13 X10^6/uL (4.5-5.9); Red Cell Distribution Width 18.4 % (11.6-14.8)
[2023-06-20 06:45] LABS: Add Manual Diff / Slide Review YES
[2023-06-20 06:48] LABS: Neutrophils Absolute Manual 3540 /uL (3000-5900); Nucleated Red Blood Cells 3 #/Diff; Total Cells Counted 100
[2023-06-20 06:49] LABS: Macrocytosis 1+; Platelet Estimate Decreased on smear; Stomatocytes 2+
[2023-06-20 06:50] LABS: Anisocytosis 1+
[2023-06-20 08:00] VITALS: BP 123/79; PULSE 89; RESP 20; TEMP 35.8; O2SAT 95
[2023-06-20] MEDS: prednisoLONE Syrup 15 MG/5 ML 40 MG PO (08:24)
[2023-06-20] MEDS: LACTULOSE 20 GM/30 ML SOLUTION 30 GM PO ×3 (08:24→20:57)
[2023-06-20] MEDS: MULTIVITAMIN 1 TABLET 1 TAB PO (08:24)
[2023-06-20] MEDS: THIAMINE 100 MG TABLET PO (08:24)
[2023-06-20] MEDS: FOLIC ACID 1 MG TABLET PO (08:24)
[2023-06-20] MEDS: NYSTATIN POWDER 15GM 1 APPLIC TOP ×2 (08:25→20:59)
[2023-06-20] MEDS: POTASSIUM CHLORIDE 20 MEQ TAB 40 MEQ PO (10:46)
--- NOTE | 2023-06-20 11:15 | PT.IPTN ---
Current Diagnoses Acidosis, unspecified (06/12/23) Physical Therapy Treatment Note M2 PT-IP Current Condition Start: 06/15/23 15:08 Freq: NEEDED Status: Active Protocol: Document 06/15/23 14:00 AB (Rec: 06/15/23 15:34 AB [id number]) Physical Therapy Current Condition Current Condition Evaluation Date 06/15/23 Treatment Diagnosis ETOH w/d; difficulty in walking Onset Date 06/12/23 M3 PT-IP Subjective Start: 06/15/23 15:08 Freq: NEEDED Status: Active Protocol: Document 06/20/23 12:22 TS (Rec: 06/20/23 12:41 TS [id number]) Subjective Physical Therapy Visit Type Type Treatment Note Visit Start Time 11:15 Visit Stop Time 11:45 Total Visit Minutes 30 Notes Spo2 95% on RA, 92% after mobility RA, HR at rest 114, HR 129 after mobility. Physical Therapy Visit Comments Patient Comments Pt found sitting EOB with father in room, pt reports feeling like he is getting stronger, is agreeable to PT. M4 PT-IP Mobility and Gait Start: 06/15/23 15:08 Freq: NEEDED Status: Active Protocol: Document 06/20/23 12:22 TS (Rec: 06/20/23 12:41 TS [id number]) PT-Transfer Assessment Sit to and From Stand Sit to and from Stand Contact Guard Assistance,1 Person Assistance,Use of Upper Extremities Equipment Transfer Assistive Device Gait Belt,Front Wheeled Walker Orthotic/Prosthetic Devices or Brace: No Comments Mobility Comments Pt found sitting EOB, agreeable to PT. SPo2 at rest 95% on RA, HR 114. Sit to stand from bed CGA with FWW, has good balance in standing with use of heavy UE assist on FWW. He ambulated ~200'SBA/ CGA w/FWW, has a quick gait with WBOS, had no buckling or LOB. He progressed stairs to x15 ascending/descending step over step with B handrail assist. Pt is SOB with gait and stairs o2 desats to 92% on RA with a HR of 129. Hospitalist came into room after PT to check pt's lungs, he ordered ultrasound to check abdomen for fluid later today . Pt was left back in bed with call light nearby, all needs met, RN notified. Gait Assessment Gait Gait Assistance Required: Standby Assistance,Contact Guard Assist Distance (Feet) 200 Able to Maintain Weight Bearing Status Yes During Gait Assistive Devices Assistive Device Gait Belt,Front Wheeled Walker Orthotic/Prosthetic Devices or Brace: No Gait Deviations General Gait Pattern Decreased Stride Length, Decreased Feet Clearance,Wide Based Gait Factors Limiting Gait Function Factors Limiting Gait Function Decreased Activity Tolerance, Decreased Sensation,Poor Balance Comments Gait Comments See mobility comments. Stair Climbing Assessment Evaluation Level of Assist On Stairs Contact Guard Assistance,1 Person Assistance Devices Stair Climbing Assistive Devices Left Railing,Right Railing Technique/Endurance Stair Climbing Direction Ascend and Descend Stair Climbing Technique Step to Step Number of Steps Climbed 15 Comments Stair Climbing Comments See mobility comments. PT-Balance Assessment Sitting Balance and Reactions Static Sitting Balance Ability Good Dynamic Sitting Balance Ability Good Standing Balance and Reactions Static Standing Balance Ability Fair Dynamic Standing Balance Ability Fair Device Used FWW M5 PT-IP Objective Assessments Start: 06/15/23 15:08 Freq: NEEDED Status: Active Protocol: Document 06/15/23 14:00 AB (Rec: 06/15/23 15:34 AB [id number]) Orientation Orientation/Cognition Level of Alertness Lethargic Orientation Name,Situation Safety Awareness Decreased Safety Awareness Gross Range of Motion Lower Extremity ROM Assessment Within Functional Limits Strength Lower Extremity Strength Assessment Within Functional Limits Sensation Assessment Sensation Gross Sensation WNL Muscle Tone Muscle Tone WNL Yes M6 PT-IP Treatment Start: 06/15/23 15:08 Freq: NEEDED Status: Active Protocol: Document 06/20/23 12:22 TS (Rec: 06/20/23 12:41 TS [id number]) Physical Therapy Treatment Education Education Provided Safety M7 PT-IP Assessment and Plan Start: 06/15/23 15:08 Freq: NEEDED Status: Active Protocol: Document 06/20/23 12:22 TS (Rec: 06/20/23 12:41 TS [id number]) PT Summary Assessment and Plan Potential Rehabilitation Potential Fair Summary Impairments Strength,Balance,Bed Mobility, Transfers,Gait,Activity Tolerance Progress Towards Goals Progressing Toward Goals Assessment Summary Maury is making progress with his mobility this session. He progressed his gait to ~200 CGA/SBA w/FWW with labored breathing, denies SOB, Spo2 92% with mobility. He is unsteady w/gait due to WBOS and decreased strength, pt reports his LEs are starting to feel stronger. He progressed his steps to x15 ascending/descending CGA w/B handrails, again has labored breathing but denies SOB. PT continues to recommend SNF to improve strength, functional mobility and activity tolerance. Goals Bed Mobility Goal Independent Transfer Goal Independent,Front Wheeled Walker Gait Goal Contact Guard Assistance,Front Wheel Walker Gait Distance 150 Other Goals Improve transfers and ambulation using LRAD or without AD 300ft mod I. Ascend/descend 52 steps with B rails SBA. Days to Meet Goals 10 Frequency of Treatment Frequency Of Treatment Once a Day Treatment Plan Physical Therapy Treatment Plan Bed Mobility Training,Transfer Training,Gait Training, Therapeutic Exercise,Balance Retraining,Post Op Education, Discharge Planning,Hot or Cold Pack,Neuromuscular Re-ed, Coordination Retraining,Manual Therapy Other Recommendations and Next Treatment Continue standing ther ex. Focus Progress gait distance as able and stairs. May require chair follow. Precautions Other Precautions HR; falls Recommendations To Nursing Amount of Assist Needed 1 Person Assist Discharge Recommendations PT Discharge Recommendations SNF Rehab Equipment Needed for Home Before BARIATRIC FWW if pt d/c to Discharge home and is unsafe without AD Transportation Needs at Discharge Wheelchair/Cabulance
--- NOTE | 2023-06-20 11:59 | CM.DPNOTE ---
Addendum entered by GOVIND Stahl 06/20/23 13:12: ADD: Spoke w/Jeremy at [facility]. Discussed referral. He will review and get back to this team re acceptance or denial for [facility] services. NAIF Original Note: DCP Note According to Dr Barfield and therapy team, patient would benefit from SNF stay r/t deconditioned state. Patient is able to walk w/walker to/from the , but will need assist if discharged home. Placed call to Shanice at [facility], no beds. Placed call to Blanche at [facility] swing beds, no beds until next week. FARSHAD Tyler, has sent referrals to [facility], [facility] and [facility]. Sivan at [facility] is wiling to attempt [employer] auth. Bedside discussion this morning with patient and father Escobar. Escobar explains he is nervous about taking patient back to his motel room, on the third floor, at [facility]. Escoabr has called other hotels and has had no success finding a room on the first floor so has paid for an another week at [facility]. Discussed barriers to securing SNF- mainly ETOH and [employer] JUSTUS. Explained that [facility] is trying to obtain payment from [employer] for SNF stay. After discussion w/Dr Barfield, returned to room to propose the following to patient and his father Escobar: Anticipate patient will discharge tomorrow, 06.21.23, either home to [facility] via BLS w/father to assist (will attempt HH PT ) vs [facility] if [employer] authorization is secured. CM team will continue to follow closely to assist in coordination of DCP. NAIF
[2023-06-20 12:00] VITALS: BP 138/95; PULSE 89; RESP 24; TEMP 36; O2SAT 96
--- NOTE | 2023-06-20 13:36 | P.PN_ITS ---
Subjective Subjective Interval history: 43-year-old male with alcohol dependence who was admitted with alcohol in toxication, alcohol withdrawal, paroxysmal AFib with RVR, acute alcoholic hepatitis, thrombocytopenia, hypernatremia, and hypokalemia. Patient initially required a Precedex drip and ICU level of care. He is now off of librium. Bilirubin continuing to rise with elevated INR as well. AST/ALT are improving since admission. Started steroids for alcoholic hepatitis given DF of near 60, now improved bili and INR is also slightly improving. He is somewhat slow to respond to questions but does answer them appropriately. He denies any abdominal pain. He does have some shortness of breath today, flory ecially with ambulation. He is doing much better, labs continue to improve. He still appears a bit encephlopathic but stabilizing. He was able to do stairs today with PT. Family is concerned about his living situation at a local hotel on the top floor. He likely does not have many options given his health insurance coverage and his current mobility, care management continues to look for possible SNF but may need to discharge home ultimately. Exam Vital Signs (past 8 hours): - 06/20/23 08:00 06/20/23 07:55 Temperature 96.4 F L Pulse Rate 89 Respiratory Rate 20 Blood Pressure 123/79 Pulse Oximetry 95 Oxygen Delivery Method Room Air Oxygen Flow Rate 0 Fraction of Inspired Oxygen 28 SaO2/FiO2 Ratio 339 Oxygen Delivery Method Room Air Oxygen Flow Rate 0 Narrative Exam Narrative: GEN:? Chronically ill-appearing adult male, improved jaundice, Alert and oriented x 3, somewhat slow to respond, NAD HEENT:NC, Face symmetric, moderate scleral icterus CHEST: Respiratory excursions symmetric, coarse but CTAB CV:? Mildly tachycardic with regular rhythm, no M/R/G ABD: Soft, obese, NT/ND, BT present in all 4 quadrants, body habitus limits exam EXTR: warm, well perfused, no C/C/2+ generalized edema, venous stasis changes noted bilaterally SKIN: warm and dry, no rash, jaundice NEURO: Alert and oriented x 3, nonfocal Objective Labs 06/20/23 05:15 06/20/23 05:15 Labs: Laboratory Results - last 24 hr 06/20/23 06/20/23 06/20/23 05:15 05:15 05:15 WBC 6.0 RBC 4.13 L Hgb 14.8 Hct 44.1 MCV 106.7 H MCH 35.7 H MCHC 33.5 RDW 18.4 H Plt Count 88 L Neut % (Auto) Not Reportable Lymph % (Auto) Not Reportable [place] % (Auto) Not Reportable Eos % (Auto) Not Reportable Baso % (Auto) Not Reportable Lymph # (Auto) Not Reportable [place] # (Auto) Not Reportable Baso # (Auto) Not Reportable Total Counted 100 Seg Neutrophils % 56.0 Band Neutrophils % 3.0 Lymphocytes % (Manual) 24.0 L Monocytes % (Manual) 15.0 H Eosinophils % (Manual) 1.0 L Basophils % (Manual) 1.0 Neutrophils # (Manual) 3540 Nucleated RBCs 3 H Platelet Estimate Decreased on smear RBC Morphology See below Anisocytosis 1+ H Macrocytosis 1+ H Stomatocytes 2+ H PT 19.9 H INR 1.7 H Sodium 136 L Potassium 3.4 Chloride 100 Carbon Dioxide 32 BUN 8 L Creatinine 0.51 L Estimated GFR > 60 BUN/Creatinine Ratio 15.7 Glucose 96 Calcium 9.4 Total Bilirubin 8.1 H AST 141 H ALT 118 H Alkaline Phosphatase 208 H Total Protein 7.3 Albumin 3.2 L Globulin 4.1 Albumin/Globulin Ratio 0.8 L PFSH Social History household members: none Smoking Status: Unknown if ever smoked alcohol intake: current Assessment & Plan Assessment & Plan narrative: 1. Alcohol dependence, complicated by intoxication and severe withdrawal On admission, his alcohol level was 0.41.? He initially required treatment with a Precedex infusion.? He has now completed taper of Librium.? No seizures.? Continues on multivitamin and folate.? Transitioned to normal dose thiamine. Librium was discontinued without significant side effects. 2. Alcohol-induced hepatitis with hepatic encephalopathy. - Still elevated bilirubin and AST/ALT. Though these are still improving today. INR finally improving. DF of near 60. Started prednisolone syrup on 06/17, 40 mg daily for alcoholic hepatitis. Treatment is typically 28 days if patient responding which it appears he is. - continue to follow AST/ALT, bili, and INR daily - No gallstone were noted on abdominal imaging done 06/12, reviewed personally. Unclear with encephalopathy if this represents cirrhosis or complications of his alcoholic hepatitis. - Increased lactulose from 20 mg TID to 30 mg TIDto see if improvement with encephalopathy which it has slightly. Continue to Titrate to approx 3 BMs daily. - POCUS performed today by me shows no abdominal fluid / ascites. 3. Paroxysmal AFib with RVR Resolved.? He does have sinus tachycardia now.? Echocardiogram revealed no acute findings.? He did initially require a diltiazem drip, followed by an esmolol drip which have since been discontinued.? Chads 2 Vasc score was 0, so anticoagulation is not indicated and with alcoholic hepatitis risks outweight any benefits at this time. 4. Thrombocytopenia Platelets are improving overall and are up to 67.? Likely secondary to alcohol.? Will monitor closely. 5. 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 Hypokalemia Potassium improving and up to normal today. Will continue potassium replacement today as needed. Magnesium level is stable at 2.0 yesterday.? Code status Full Prophylaxis Chemical prophylaxis contraindicated in the setting of thrombocytopenia and elevated INR currently. Can consider restarting if both improved slightly. Disposition Discharge home vs SNF, case management to exhaust all SNF options prior to probable discharge home. Complicated by patient's health insurance. Additional history obtained via discussion with bedside staff. I have reviewed patient's labs, imaging, and documentation personally. Quality VTE Deep Vein Thrombosis/Pulmonary Embolism Present on Admission: No
--- NOTE | 2023-06-20 16:08 | OT.IP.TRT ---
Current Diagnoses Acidosis, unspecified (06/12/23) Occupational Therapy Treatment Note M2 OT-IP Current Condition Start: 06/17/23 12:45 Freq: Status: Active Protocol: Document 06/17/23 12:46 CGR (Rec: 06/17/23 12:57 CGR [id number]) Occupational Therapy Current Condition Current Condition Evaluation Date 06/17/23 Treatment Diagnosis ETOH Diagnosis Onset Date 06/12/23 M3 OT- IP Subjective and Pain Start: 06/17/23 12:45 Freq: Status: Active Protocol: Document 06/20/23 16:08 [facility] (Rec: 06/20/23 16:27 [facility] [id number]) OT- Subjective Occupational Therapy Visit Type Type Treatment Note Visit Start Time 16:08 Visit Stop Time 16:17 Total Visit Minutes 9 Occupational Therapy Visit Comments Patient Comments Pt agreed to talk to OT and states just got finished using the bathroom. Patient/Caregiver Goals TO go home. OT Pain Assessment Pain When Pain Assessed At Rest Pain Present Pain Present Denied Pain M4 OT- IP ADL's Start: 06/17/23 12:45 Freq: Status: Active Protocol: Document 06/20/23 16:08 [facility] (Rec: 06/20/23 16:27 [facility] [id number]) OT ADL-Dressing Comments OT Dressing Comments Pt having to put his leg up on the bed and able to take off his sock on his own. M6 OT- IP Functional Cognition Start: 06/17/23 12:45 Freq: Status: Active Protocol: Document 06/20/23 16:08 [facility] (Rec: 06/20/23 16:27 [facility] [id number]) Cognitive Factors Limiting Selfcare Function Cognitive Ability Level of Alertness Alert Attention Span Ability Capable of Focused Attention, Capable of Sustained Attention Ability to Follow Commands Able to Follow Multi-Step Commands Cognitive Comments Cognitive Assessment Comments Pt able to actively participate to go over energy conservation strategies for his ADL and IADl needs. M7 OT- IP Mobility and Balance Start: 06/17/23 12:45 Freq: Status: Active Protocol: Document 06/17/23 12:46 CGR (Rec: 06/17/23 12:57 CGR [id number]) OT-Transfer Assessment Sit to and From Stand Sit to and from Stand Minimal Assistance Transfers Transfer Ability Minimal Assistance Technique Transfer Destination Bed Transfer Technique Stand Step Pivot Devices Transfer Assistive Devices Gait Belt,Front Wheeled Walker Comments Mobility Comments Pt ambulated from bed to the sink with min a. Pt is off balance and needs VC for safety. OT- Balance Assessment Sitting Balance and Reactions Static Sitting Balance Ability Good Dynamic Sitting Balance Ability Good M8 OT- IP Objective Assessments Start: 06/17/23 12:45 Freq: Status: Active Protocol: Document 06/17/23 12:46 CGR (Rec: 06/17/23 12:57 CGR [id number]) OT Gross Range of Motion Upper Extremity Range of Motion Assessment Within Functional Limits OT Strength Upper Extremity Strength Assessment Within Functional Limits Comments Strength Comments 02/01 OT- Coordination Assessment Upper Extremity Finger to Nose Test Within Functional Limits Finger Tapping Test Within Functional Limits OT-Muscle Tone Assessment Muscle Tone WNL Yes OT Sensation Assessment Edema Edema Absent M9 OT- IP Assessment and Plan Start: 06/17/23 12:45 Freq: Status: Active Protocol: Document 06/20/23 16:08 CCC (Rec: 06/20/23 16:27 CCC [id number]) OT Summary Assessment and Plan Potential Rehabilitation Potential Good Analytic Complexity at Evaluation Moderate Summary Progress Towards Goals Progressing Toward Goals Assessment Summary Pt thinking better and able to actively participate strategies for energy conservation during ADl and ADL needs. Pt is open to going to skilled rehab versus home as feels still getting SOB, decreased activity tolerance, and feeling his legs are weak. Pt now agreeable to go to skilled rehab versus home with assist from his dad and home health. Goals Grooming Goal Independent Dressing Goal Independent Toileting Goal Independent Bathing Goal Independent Toilet Transfer Goal Independent Shower Transfer Goal Independent Days to Meet Goals 6 Frequency of Treatment Frequency Of Treatment Once a Day Treatment Plan OT Treatment Plan ADL Training,Functional Cognition Training,Functional Mobility,Patient/Family Education,Discharge Planning Discharge Recommendations OT Discharge Recommendations Home with 22/04 Assist Available,Home Health,SNF Rehab Transportation Needs at Discharge Private Vehicle,Wheelchair/ Cabulance
--- NOTE | 2023-06-20 18:52 | PC.NURSE ---
Day shift: Pt A&O x4, fatigued. Up to BR w/ SBA FWW. Pt ambulated in halls with physical therapy, as well as therapy stairs. Pt states, I will never drink again. Pt appears to be in good spirits when discussing plan to discharge. Moved to rm 222. VSS. Care ongoing. Will continue to monitor.
[2023-06-20 20:00] VITALS: BP 140/85; PULSE 86; RESP 17; TEMP 36.1; O2SAT 90
[2023-06-20] MEDS: MELATONIN 3 MG TABLET 9 MG PO (20:57)
[2023-06-21 04:00] VITALS: BP 148/95; PULSE 86; RESP 16; TEMP 36.9; O2SAT 92
[2023-06-21 05:34] LABS: Add Manual Diff / Slide Review NO; Basophils Absolute Auto 0 /uL (0-100); Basophils Percent Auto 0.9 % (0-2); Eosinophils Absolute Auto 100 /uL (0-450); Eosinophils Percent Auto 1.4 % (2-4); Hematocrit 45.4 % (41-53); Hemoglobin 15.2 g/dL (13.5-17.5); INR 1.6 (0.9-1.3); Lymphocytes Absolute Auto 1100 /uL (1100-4500); Lymphocytes Percent Auto 21.6 % (25-40); Mean Corpuscular HGB Conc 33.5 % (30-36); Mean Corpuscular Hemoglobin 35.8 PG (26-34); Mean Corpuscular Volume 106.7 fL (80-100); Monocytes Absolute Auto 700 /uL (0-900); Neutrophils Absolute Auto 3200 /uL (1500-7000); Neutrophils Percent Auto 62.1 % (50-75); Platelet Count 95 X10^3/uL (150-400); Red Blood Cell Count 4.25 X10^6/uL (4.5-5.9); Red Cell Distribution Width 18.6 % (11.6-14.8); White Blood Cell Count 5.1 X10^3/uL (4.5-11.0)
[2023-06-21 05:42] LABS: Alanine Aminotransferase 119 IU/L (<50); Albumin 3.3 g/dL (3.5-5.0); Albumin Globulin Ratio 0.8 (1.0-2.8); Alkaline Phosphatase 229 U/L (38-126); Aspartate Aminotransferase 154 IU/L (17-59); Bilirubin Total 7.9 mg/dL (0.2-1.3); Blood Urea Nitrogen 11 mg/dL (9-20); Calcium 9.5 mg/dL (8.4-10.2); Carbon Dioxide 31 mmol/L (22-32); Chloride 100 mmol/L (98-107); Estimated Glomerular Filt Rate > 60 mL/min (>60); Globulin 4.2 g/dL (1.7-4.1); Glucose 103 mg/dL (70-100); HEMOLYSIS < 15 (0-50); Potassium 3.6 mmol/L (3.4-5.1); Sodium 138 mmol/L (137-145); Total Protein 7.5 g/dL (6.3-8.2)
[2023-06-21] MEDS: PANTOPRAZOLE DR 40 MG TABLET PO (07:22)
[2023-06-21 09:00] VITALS: BP 109/80; PULSE 96; RESP 22; TEMP 36.6; O2SAT 91
[2023-06-21] MEDS: THIAMINE 100 MG TABLET PO (10:00)
[2023-06-21] MEDS: FOLIC ACID 1 MG TABLET PO (10:00)
[2023-06-21] MEDS: prednisoLONE Syrup 15 MG/5 ML 40 MG PO (10:00)
[2023-06-21] MEDS: LACTULOSE 20 GM/30 ML SOLUTION 30 GM PO (10:01)
[2023-06-21] MEDS: MULTIVITAMIN 1 TABLET 1 TAB PO (10:01)
[2023-06-21] MEDS: NYSTATIN POWDER 15GM 1 APPLIC TOP (10:02)
--- NOTE | 2023-06-21 11:10 | PT.IPTN ---
Current Diagnoses Acidosis, unspecified (06/12/23) Physical Therapy Treatment Note M2 PT-IP Current Condition Start: 06/15/23 15:08 Freq: NEEDED Status: Active Protocol: Document 06/15/23 14:00 AB (Rec: 06/15/23 15:34 AB [id number]) Physical Therapy Current Condition Current Condition Evaluation Date 06/15/23 Treatment Diagnosis ETOH w/d; difficulty in walking Onset Date 06/12/23 M3 PT-IP Subjective Start: 06/15/23 15:08 Freq: NEEDED Status: Active Protocol: Document 06/21/23 11:37 TS (Rec: 06/21/23 12:02 TS [id number]) Subjective Physical Therapy Visit Type Type Treatment Note Visit Start Time 11:10 Visit Stop Time 11:36 Total Visit Minutes 26 Notes Father present. Number of CHOPPED STRAND OPERATOR Visits 4 Physical Therapy Visit Comments Patient Comments Pt found sitting EOB brushing his teeth, agreeable to PT. M4 PT-IP Mobility and Gait Start: 06/15/23 15:08 Freq: NEEDED Status: Active Protocol: Document 06/21/23 11:37 TS (Rec: 06/21/23 12:02 TS [id number]) PT-Transfer Assessment Sit to and From Stand Sit to and from Stand Standby Assistance,Use of Upper Extremities Equipment Transfer Assistive Device Gait Belt,Front Wheeled Walker Orthotic/Prosthetic Devices or Brace: No Comments Mobility Comments Spo2 prior to mobility 93%, HR ~100. Sit to stand from bed SBA w/ BUE support on FWW. He ambulated ~250' in hallway SBA with a normal paced gait w/ FWW, had no buckling or LOB. He performed stairs X30 SBA step over step w/ B handrail assist, pt has labored breathing, reports some SOB. Pt ambulated back to room, Spo2 93% on RA, HR 125, continues to have some SOB. Pt was left in room with father, all needs met. Gait Assessment Gait Gait Assistance Required: Standby Assistance Distance (Feet) 250 Able to Maintain Weight Bearing Status Yes During Gait Assistive Devices Assistive Device Gait Belt,Front Wheeled Walker Orthotic/Prosthetic Devices or Brace: No Gait Deviations General Gait Pattern Decreased Stride Length, Decreased Feet Clearance,Wide Based Gait Factors Limiting Gait Function Factors Limiting Gait Function Decreased Activity Tolerance, Decreased Sensation,Poor Balance,Respiratory Distress Comments Gait Comments See mobility comments. Stair Climbing Assessment Evaluation Level of Assist On Stairs Standby Assistance Devices Stair Climbing Assistive Devices Left Railing,Right Railing Technique/Endurance Stair Climbing Direction Ascend and Descend Stair Climbing Technique Step Over Step Number of Steps Climbed 30 Comments Stair Climbing Comments See mobility comments. PT-Balance Assessment Sitting Balance and Reactions Static Sitting Balance Ability Good Dynamic Sitting Balance Ability Good Standing Balance and Reactions Static Standing Balance Ability Good Dynamic Standing Balance Ability Fair Device Used FWW M5 PT-IP Objective Assessments Start: 06/15/23 15:08 Freq: NEEDED Status: Active Protocol: Document 06/15/23 14:00 AB (Rec: 06/15/23 15:34 AB [id number]) Orientation Orientation/Cognition Level of Alertness Lethargic Orientation Name,Situation Safety Awareness Decreased Safety Awareness Gross Range of Motion Lower Extremity ROM Assessment Within Functional Limits Strength Lower Extremity Strength Assessment Within Functional Limits Sensation Assessment Sensation Gross Sensation WNL Muscle Tone Muscle Tone WNL Yes M6 PT-IP Treatment Start: 06/15/23 15:08 Freq: NEEDED Status: Active Protocol: Document 06/21/23 11:37 TS (Rec: 06/21/23 12:02 TS [id number]) Physical Therapy Treatment Education Education Provided Safety M7 PT-IP Assessment and Plan Start: 06/15/23 15:08 Freq: NEEDED Status: Active Protocol: Document 06/21/23 11:37 TS (Rec: 06/21/23 12:02 TS [id number]) PT Summary Assessment and Plan Potential Rehabilitation Potential Fair Summary Impairments Strength,Balance,Bed Mobility, Transfers,Gait,Activity Tolerance Progress Towards Goals Progressing Toward Goals Assessment Summary Maury continues to make progress with his mobility. He progressed his gait to ~250' SBA w/ a normal pacing gait and use of FWW. He is unsteady with gait due to his WBOS of support but has no buckling or LOB. He progressed his stairs to x30 SBA with use of B handrails, has some labored breathing and reports SOB, Spo2 remained 93% on RA. PT is recommending home w/assist and HH or outpatient therapy. Pt would like to go to SNF if possible to progress mobility before going home. Goals Bed Mobility Goal Independent Transfer Goal Independent,Front Wheeled Walker Gait Goal Contact Guard Assistance,Front Wheel Walker Gait Distance 150 Other Goals Improve transfers and ambulation using LRAD or without AD 300ft mod I. Ascend/descend 52 steps with B rails SBA. Days to Meet Goals 10 Frequency of Treatment Frequency Of Treatment Once a Day Treatment Plan Physical Therapy Treatment Plan Bed Mobility Training,Transfer Training,Gait Training, Therapeutic Exercise,Balance Retraining,Post Op Education, Discharge Planning,Hot or Cold Pack,Neuromuscular Re-ed, Coordination Retraining,Manual Therapy Other Recommendations and Next Treatment Continue standing ther ex. Focus Progress gait distance as able and stairs. Precautions Other Precautions HR; falls Recommendations To Nursing Amount of Assist Needed Standby Assistance Discharge Recommendations PT Discharge Recommendations Home with Assistance,Home Health,Outpatient PT Equipment Needed for Home Before BARIATRIC FWW if pt d/c to Discharge home and is unsafe without AD Transportation Needs at Discharge Private Vehicle
--- NOTE | 2023-06-21 12:45 | OT.IP.TRT ---
Current Diagnoses Acidosis, unspecified (06/12/23) Occupational Therapy Treatment Note M2 OT-IP Current Condition Start: 06/17/23 12:45 Freq: Status: Active Protocol: Document 06/17/23 12:46 [facility] (Rec: 06/17/23 12:57 R [id number]) Occupational Therapy Current Condition Current Condition Evaluation Date 06/17/23 Treatment Diagnosis ETOH Diagnosis Onset Date 06/12/23 M3 OT- IP Subjective and Pain Start: 06/17/23 12:45 Freq: Status: Active Protocol: Document 06/21/23 12:46 [facility] (Rec: 06/21/23 12:51 [facility] [id number]) OT- Subjective Occupational Therapy Visit Type Type Treatment Note Visit Start Time 12:35 Visit Stop Time 12:45 Total Visit Minutes 10 Occupational Therapy Visit Comments Patient Comments Pt in the room and his father present. Patient/Caregiver Goals TO go home. Pt able to get to the edge of the bed on his own. M8 OT- IP Objective Assessments Start: 06/17/23 12:45 Freq: Status: Active Protocol: Document 06/17/23 12:46 [facility] (Rec: 06/17/23 12:57 R [id number]) OT Gross Range of Motion Upper Extremity Range of Motion Assessment Within Functional Limits OT Strength Upper Extremity Strength Assessment Within Functional Limits Comments Strength Comments 5/5 OT- Coordination Assessment Upper Extremity Finger to Nose Test Within Functional Limits Finger Tapping Test Within Functional Limits OT-Muscle Tone Assessment Muscle Tone WNL Yes OT Sensation Assessment Edema Edema Absent M9 OT- IP Assessment and Plan Start: 06/17/23 12:45 Freq: Status: Active Protocol: Document 06/21/23 12:46 [facility] (Rec: 06/21/23 12:51 [facility] [id number]) OT Summary Assessment and Plan Potential Rehabilitation Potential Good Analytic Complexity at Evaluation Moderate Summary Progress Towards Goals Progressing Toward Goals Assessment Summary Pt looking to go home today and able to issue a bariatric FWW for the pt. Pt's father in the room and able to go over OT needs and has good understanding of how to assist his son. Goals Days to Meet Goals 3 Frequency of Treatment Frequency Of Treatment Once a Day Treatment Plan OT Treatment Plan ADL Training,Functional Cognition Training,Functional Mobility,Patient/Family Education,Discharge Planning Discharge Recommendations OT Discharge Recommendations Home with 24/ Assist Available,Home Health Transportation Needs at Discharge Private Vehicle
--- NOTE | 2023-06-21 15:30 | CM.DPNOTE ---
DC Note This morning, Sivan at [facility] was still working on [employer] for SNF stay. Meanwhile, patient seen walking the hallway w/walker and was able to manage stair training w/NET APPLICATION ARCHITECT Mynor. Patient cleared for return home w/bariatric FWW and assist from family. Reviewed plan w/patient and father Escobar at bedside, both agreeable to patient returning to his motel room at [facility] w/family assist. Escobar still plans to take patient home with him to [place] when he is capable of traveling. [facility] declined patient. Still awaiting return call from mian LILLY. Patient is a good candidate for PT however ETOH and [employer] insurance are barriers to securing this service. Plan: Discharge back to mot room w/family assist is expected today via private vehicle. Awaiting CB from mian LILLY re this referral. NAIF
--- NOTE | 2023-06-21 21:54 | PM.DS.1 ---
History of Present Illness History of Present Illness Date Patient Seen: 06/12/23 Chief complaint: ETOH w/ SI Narrative: Per admitting physician: Maury Singer is a 43-year-old male with past medical history of alcohol dependence who presents intoxicated, brought in by EMS after falling out of bed and urinating himself. ETOH level of 410 on arrival. Patient states he drinks a 5th of liquor daily. He has drank every day without a single missed day for about a year. He has never been to alcohol treatment. He is interested in detoxing to go to rehab. In the ED patient found to be in atrial fibrillation with RVR. Heart rates were up to 170s. Diltiazem drip started which was ineffective even at max dose so cardiology contacted who recommended esmolol drip. Patient's CIWA scores were in 20s. Last drink was before he came into the ED. Discharge Providers Provider Date of admission: 06/12/23 14:06 Discharge Date: 06/21/23 Primary care physician: Susana Wynn PA-C Consults: 06/11/23 23:15 Consult to SHIPPING INSPECTOR - Clerical Aide Teacher Stat Comment: 06/12/23 14:30 Consult to Tele-sulfonation equipment operator Routine Comment: Consulting Provider: [employer] Reason for consultation: Insurance Sales Assistant services 06/12/23 16:42 Consult to Dietitian, Adult Routine Comment: Reason For Exam: assessed high risk, ETOH Consult to Clerical Aide Teacher Routine Comment: 06/15/23 07:08 Consult to Occupational Therapy Evaluate & Treat Comment: Physician Instructions: Evaluate and treat Consult to Physical Therapy Evaluate & Treat Comment: Physician Instructions: Evaluate and Treat 06/21/23 12:23 Consult to Physical Therapy Evaluate & Treat Comment: Physician Instructions: Bariatric FWW for home use Discharge provider: Gerald Espinoza MD Summary Hospital Course Discharge Diagnosis: 1. Acute alcohol withdrawal and dependence 2. Alcohol hepatitis 3. Hepatic encephalopathy 4. Paroxsymal atrial fibrillation with RVR 5. Thrombocytopenia 6. Hypokalemia Hospital Course: Mr. Singer was admitted with severe alcohol withdrawal. He did require ICU admission, CIWA protocol and precedex drip. He did have encephalopathy and elevated ammonia consistent with hepatic encephalopathy. He improved with lactulose. He was also noted to have elevated liver function tests, bilirubin that peaked above 9, and elevated INR. His Maddrey's DF was elevated and he was started on steroids with some improvement in his liver function tests. He was ultimately discharged with plan for 28 days of steroids followed by a three week taper. He did have afib with RVR in the hospital but this quickly resolved with treating his withdrawal and fixing his electrolyte abnormalities. His CHADSVASC 2 was low so ultimately he did not require rate control or anticoagulation. He is planned to move back to [place] to be closer to family in the upcoming days. He was counselled extensively on the adverse effects of drinking for him and the need for cessation. Exam Vital Signs (past 8 hours): Fraction of Inspired Oxygen 28 SaO2/FiO2 Ratio 339 Oxygen Delivery Method Room Air Oxygen Flow Rate 0 Narrative Exam Narrative: GEN:? Chronically ill-appearing CV:? regular rate and rhythm ABD: Soft, no nontender EXTR: warm, well perfused SKIN: warm and dry, no rash, jaundice NEURO: Alert and oriented x 3, no focal deficits noted Objective Labs 06/21/23 05:00 06/21/23 05:00 Labs: Laboratory Results - last 24 hr 06/21/23 06/21/23 06/21/23 05:00 05:00 05:00 WBC 5.1 RBC 4.25 L Hgb 15.2 Hct 45.4 MCV 106.7 H MCH 35.8 H MCHC 33.5 RDW 18.6 H Plt Count 95 L Neut % (Auto) 62.1 Lymph % (Auto) 21.6 L [place] % (Auto) 14.0 Eos % (Auto) 1.4 L Baso % (Auto) 0.9 Neut # (Auto) 3200 Lymph # (Auto) 1100 [place] # (Auto) 700 Eos # (Auto) 100 Baso # (Auto) 0 PT 19.0 H INR 1.6 H Sodium 138 Potassium 3.6 Chloride 100 Carbon Dioxide 31 BUN 11 Creatinine 0.58 L Estimated GFR > 60 BUN/Creatinine Ratio 19.0 Glucose 103 H Calcium 9.5 Total Bilirubin 7.9 H AST 154 H ALT 119 H Alkaline Phosphatase 229 H Total Protein 7.5 Albumin 3.3 L Globulin 4.2 H Albumin/Globulin Ratio 0.8 L PFSH Social History household members: none Smoking Status: Unknown if ever smoked alcohol intake: current Discharge Plan Discharge Plan Patient Disposition: Home Health Service Provider Discharge Comment: Mr. Singer came in to the hospital with alcholic hepatitis and alcohol withdrawal. He improved in the hospital. He also had confusion. He should completely avoid alcohol. He should take lactulose twice a day and have a bowel movement at least once a day to make sure the toxins are removed from his body. He should take the steroids to help reduce the inflammation in his liver. He should follow up with a PCP as soon as possible. Discharge orders & Medications Prescriptions: New prednisone 20 mg tablet 40 mg PO DAILY Qty: 67 0RF Rx Instructions: 40mg for 23 days, 30mg (1.5 tabs) for 7 days, 20mg (1 tab) for 7 days, 10mg (0.5 tab) for 7 days, then stop lactulose 20 gram/30 mL solution 20 g PO BID Qty: 2880 0RF folic acid 1 mg Tablet 1 mg PO DAILY Qty: 30 0RF thiamine mononitrate (vit B1) 100 mg Tablet 100 mg PO DAILY Qty: 30 0RF multivitamin with folic acid [Tab-A-Irma] 400 mcg Tablet 1 tab PO DAILY Qty: 30 0RF Follow up/Referrals: Susana Wynn PA-C [Primary Care Provider] - Diet/Activity/Treatments Diet: Regular Visit Report/Discharge Packet Instructions: DI for Alcohol Use Disorder, DI for Drug or Alcohol Withdrawal Stand Alone Forms: Patient Portal/API, Stroke Signs & Symptoms Discharge Data Primary Care Provider: Susana Wynn Discharges patient from system. Discharge Date/Time: 06/21/23 13:50 Quality VTE Deep Vein Thrombosis/Pulmonary Embolism Present on Admission: No
== END 2023-06-21 13:50 | disposition home health service (06) | DRG 775 ==
LOC: ED 06-12 10:48 → AC 06-12 14:07 → ICU 06-12 14:35 → AC 06-20 13:38
PROVIDERS: Emergency Medicine; Family Medicine; Internal Medicine; Admitting Provider Student in an Organized Health Care Education/Training Program; Emergency Provider Emergency Medicine; PCP Physician Assistant; Referring Provider Emergency Medicine; Visit Provider Student in an Organized Health Care Education/Training Program
DX: F10.239 Alcohol dependence with withdrawal, unspecified (principal); K70.10 Alcoholic hepatitis without ascites; D69.6 Thrombocytopenia, unspecified; E87.20 Acidosis, unspecified; E87.6 Hypokalemia; R47.81 Slurred speech; I48.0 Paroxysmal atrial fibrillation; K76.82 Hepatic encephalopathy; F10.229 Alcohol dependence with intoxication, unspecified; Y90.8 Blood alcohol level of 240 mg/100 ml or more
CPT/HCPCS: 36415; 36592; 70450; 71260; 74177; 76700; 80053; 80305; 80320; 80329; 81003; 81015; 82140; 82550; 83036; 83605; 83690; 83735; 84443; 84484; 85007; 85025; 85610; 85730; 87086; 87797; 93005; 93010; 94762; 96365; 96366; 96367; 96368; 96375; 96376; 97110; 97116; 97129; 97162; 97166; 97530; 97535; 99285; 99291; 99292; C8929; C9113; G0480; J1642; J1644; J2060; J2405; J2920; J3475; Q9957; Q9967